=== PATIENT | male | born 1945 | race Caucasian/White ===

== ENCOUNTER 2017-09-25 11:58 | Emergency (ER) | payer OTHER ==
[2017-09-25] MEDS ORDERED: LIDOCAINE 1% MPF 2 ML AMPULE ONE (13:28)
--- NOTE | 2017-09-25 14:24 | ER ---
Nurse's Notes [facility] Name: Richie Paulino Age: 72 yrs Sex: Male : 1945 Arrival Date: 09/25/2017 Time: 12:02 Bed 16 Private MD: Christoph Gardiner E Diagnosis: Laceration without foreign body of right hand Presentation: 09/25 12:16 Presenting complaint: Patient states: right hand slipped off of a window ledge and the sv glass broke and right hand went through the window. Transition of care: patient was not received from another setting of care. Onset of symptoms was September 25, 2017 at 10:00. Risk Assessment: Do you want to hurt yourself or someone else? Patient reports no desire to harm self or others. Initial Sepsis Screen: Does the patient meet any 2 criteria? No. Patient's initial sepsis screen is negative. Does the patient have a suspected source of infection? No. Patient's initial sepsis screen is negative. Care prior to arrival: None. 12:16 Method Of Arrival: Ambulatory sv 12:16 Acuity: RICHARD 3 sv Historical: - Allergies: 12:19 PENICILLINS; sv 12:19 Erythromycin; sv - Home Meds: 12:19 unk blood thinner [Active]; pain med [Active]; leg cramp med [Active]; sv - PMHx: 12:19 [place]; High Cholesterol; Hypertension; sv - PSHx: 12:19 left arm; hemorrhoid; sv - Immunization history:: Adult Immunizations up to date, Last tetanus immunization: < 10 years ago. - Social history:: Smoking status: Patient uses tobacco products, smokes one pack cigarettes per day. - Ebola Screening: : No symptoms or risks identified at this time. Screenin:45 Abuse screen: Denies threats or abuse. Nutritional screening: No deficits noted. rb1 Tuberculosis screening: No symptoms or risk factors identified. Fall Risk None identified. Assessment: 12:45 General: Appears in no apparent distress. comfortable, unkempt, Behavior is calm, rb1 cooperative. Pain: Complains of pain in right hand Pain currently is 8 out of 10 on a pain scale. Neuro: Level of Consciousness is awake, alert, obeys commands, Oriented to person, place, time, situation. Cardiovascular: Capillary refill < 3 seconds is brisk in bilateral fingers. Respiratory: Airway is patent Respiratory effort is even, unlabored, Respiratory pattern is regular, symmetrical. GI: No signs and/or symptoms were reported involving the gastrointestinal system. : No signs and/or symptoms were reported regarding the genitourinary system. Derm: Skin is pink, warm \T\ dry. Musculoskeletal: Range of motion: intact in all extremities. 13:30 Reassessment: Patient appears in no apparent distress at this time. No changes from rb1 previously documented assessment. 14:18 Reassessment: Sintia Davis NP at bedside placing sutures. Pt is tolerating ss procedure well. 14:30 Reassessment: Patient and/or family updated on plan of care and expected duration. Pain rb1 level reassessed. Patient is alert, oriented x 3, equal unlabored respirations, skin warm/dry/pink. Patient denies pain at this time. Vital Signs: 12:19 BP 163 / 75; Pulse 87; Resp 18; Temp 98.3(TE); Pulse Ox 96% on R/A; Weight 85.28 kg sv (R); Height 5 ft. 6 in. (167.64 cm) (R); Pain 0/10; 13:30 BP 158 / 71; Pulse 84; Resp 19; Pulse Ox 99% on R/A; rb1 14:30 BP 153 / 73; Pulse 78; Resp 19; Pulse Ox 97% on R/A; Pain 0/10; rb1 12:19 Body Mass Index 30.34 (85.28 kg, 167.64 cm) sv ED Course: 12:02 Patient arrived in ED. sb2 12:03 Christoph Gardiner MD is Private Physician. sb2 12:17 Triage completed. sv 12:20 Arm band placed on left wrist. sv 12:45 Patient has correct armband on for positive identification. Bed in low position. Call rb1 light in reach. Side rails up X 1. Pulse ox on. NIBP on. 12:46 Nora Burns, ORA is Primary Nurse. rb1 12:52 Sintia Davis FNP-C is PHCP. snw 12:52 Poncho Velásquez MD is Attending Physician. snw 14:22 Christoph Gardiner MD is Referral Physician. snw 14:40 Assist provider with laceration repair Set up tray. Performed by Sintia Ryan DREDGE WORKER-C rb1 Dressed with 4X4s, Kerlix. Patient did not have IV access during this emergency room visit. Administered Medications: 14:03 Drug: Lidocaine (1 %) 5 mg {Note: Administration by Sintia Davis NP. To affected ss area (R index finger). Approx 2-3 mL .} Route: Infiltration; 14:12 Drug: Hibiclens 4 % 1 application Route: Topical; Site: affected area; ss Outcome: 14:23 Discharge ordered by MD. wyman 14:40 Patient left the ED. rb1 14:40 Discharged to home ambulatory, with family. rb1 14:40 Condition: stable 14:40 Discharge instructions given to patient, Instructed on discharge instructions, follow up and referral plans. medication usage, Demonstrated understanding of instructions, follow-up care, medications, Prescriptions given X 2. Signatures: Chrery Art, RN RN Sintia Davis, DEBC DREDGE WORKER-Michelle Maddox RN RN ss Nora Burns RN RN rb1 Aiyana Mayo sb2 Corrections: (The following items were deleted from the chart) 15:02 15:00 Patient left the ED. rb1 rb1
--- NOTE | 2017-09-25 14:24 | EDPHYS ---
Physician Documentation [facility] Name: Richie Paulino Age: 72 yrs Sex: Male : 1945 Arrival Date: 09/25/2017 Time: 12:02 Bed 16 Private MD: Christoph Gardiner E ED Physician Poncho Velásquez HPI: 09/25 14:29 This 72 yrs old Male presents to ER via Ambulatory with complaints of snw Laceration To Hand - right thumb. 14:29 The patient has a laceration related to: replacing a window. The laceration(s) is(are) snw located on the dorsal aspect of proximal phalanx of right thumb. Onset: The symptoms/episode began/occurred suddenly, just prior to arrival. The patient has not experienced similar symptoms in the past. The patient has not recently seen a physician. glass slipped, broke, and pt's right thumb became lacerated, on blood thinners, brisk bleeding. Tetanus up to date. Historical: - Allergies: 12:19 PENICILLINS; sv 12:19 Erythromycin; sv - Home Meds: 12:19 unk blood thinner [Active]; pain med [Active]; leg cramp med [Active]; sv - PMHx: 12:19 [place]; High Cholesterol; Hypertension; sv - PSHx: 12:19 left arm; hemorrhoid; sv - Immunization history:: Adult Immunizations up to date, Last tetanus immunization: < 10 years ago. - Social history:: Smoking status: Patient uses tobacco products, smokes one pack cigarettes per day. - Ebola Screening: : No symptoms or risks identified at this time. ROS: 14:26 Constitutional: Negative for fever, chills, and weight loss, Eyes: Negative for injury, snw pain, redness, and discharge, ENT: Negative for injury, pain, and discharge, Neck: Negative for injury, pain, and swelling, Cardiovascular: Negative for chest pain, palpitations, and edema, Respiratory: Negative for shortness of breath, cough, wheezing, and pleuritic chest pain, Abdomen/GI: Negative for abdominal pain, nausea, vomiting, diarrhea, and constipation, Back: Negative for injury and pain, : Negative for injury, bleeding, discharge, and swelling, MS/Extremity: Negative for injury and deformity, Neuro: Negative for headache, weakness, numbness, tingling, and seizure, Psych: Negative for depression, anxiety, suicide ideation, homicidal ideation, and hallucinations. 14:26 Skin: Positive for laceration(s), of the dorsal aspect of proximal phalanx of right thumb. Exam: 14:26 Head/Face: Normocephalic, atraumatic. Eyes: Pupils equal round and reactive to light, snw extra-ocular motions intact. Lids and lashes normal. Conjunctiva and sclera are non-icteric and not injected. Cornea within normal limits. Periorbital areas with no swelling, redness, or edema. ENT: Nares patent. No nasal discharge, no septal abnormalities noted. Tympanic membranes are normal and external auditory canals are clear. Oropharynx with no redness, swelling, or masses, exudates, or evidence of obstruction, uvula midline. Mucous membranes moist. Neck: Trachea midline, no thyromegaly or masses palpated, and no cervical lymphadenopathy. Supple, full range of motion without nuchal rigidity, or vertebral point tenderness. No Meningismus. Chest/axilla: Normal chest wall appearance and motion. Nontender with no deformity. No lesions are appreciated. Cardiovascular: Regular rate and rhythm with a normal S1 and S2. No gallops, murmurs, or rubs. Normal PMI, no JVD. No pulse deficits. 14:26 Abdomen/GI: Soft, non-tender, with normal bowel sounds. No distension or tympany. No guarding or rebound. No evidence of tenderness throughout. Back: No spinal tenderness. No costovertebral tenderness. Full range of motion. MS/ Extremity: Pulses equal, no cyanosis. Neurovascular intact. Full, normal range of motion. Neuro: Awake and alert, GCS 15, oriented to person, place, time, and situation. Cranial nerves II-XII grossly intact. Motor strength 5/5 in all extremities. Sensory grossly intact. Cerebellar exam normal. Normal gait. Psych: Awake, alert, with orientation to person, place and time. Behavior, mood, and affect are within normal limits. 14:26 Constitutional: The patient appears alert, awake, unkempt. 14:26 Respiratory: the patient does not display signs of respiratory distress, Respirations: normal, Breath sounds: bronchial sounds. 14:26 Skin: Appearance: normal except for affected area, injury, laceration(s), the wound is approximately 4 cm(s), with a depth of 2 cm(s), of the dorsal aspect of proximal phalanx of right thumb. Vital Signs: 12:19 BP 163 / 75; Pulse 87; Resp 18; Temp 98.3(TE); Pulse Ox 96% on R/A; Weight 85.28 kg sv (R); Height 5 ft. 6 in. (167.64 cm) (R); Pain 0/10; 13:30 BP 158 / 71; Pulse 84; Resp 19; Pulse Ox 99% on R/A; rb1 14:30 BP 153 / 73; Pulse 78; Resp 19; Pulse Ox 97% on R/A; Pain 0/10; rb1 12:19 Body Mass Index 30.34 (85.28 kg, 167.64 cm) sv Laceration: 14:26 Wound Repair of 4cm ( 1.6in ) subcutaneous laceration to right hand. Profuse bleeding snw noted.. Distal neuro/vascular/tendon intact. Anesthesia: Local anesthetic administered with 4 mls of 1% lidocaine. Wound prep: Extensive cleansing with hibiclenz by me, Wound explored. Skin closed with 4 4-0 Prolene using simple sutures and sterile technique. Dressed with pressure dressing, non-adherent dressing. Patient tolerated well. MDM: 12:52 Patient medically screened. snw 14:30 Data reviewed: vital signs, nurses notes. Data interpreted: Pulse oximetry: on room air snw is 96 %. Interpretation: acceptable. Counseling: I had a detailed discussion with the patient and/or guardian regarding: the historical points, exam findings, and any diagnostic results supporting the discharge/admit diagnosis, the presence of at least one elevated blood pressure reading (>120/80) during this emergency department visit, lab results, the need for outpatient follow up, to return to the emergency department if symptoms worsen or persist or if there are any questions or concerns that arise at home. Special discussion: I have referred the patient to see his PCP for further evaluation of high blood pressure. I discussed in detail with the patient the higher chance of wound infection based on his presenting history. Based on the history and exam findings, there is no indication for further emergent testing or inpatient evaluation. I discussed with the patient/guardian the need to see the primary care provider for further evaluation of the symptoms. 09/25 13:18 Order name: Suture Tray Setup; Complete Time: 13:42 snw 09/25 13:18 Order name: Wound dressing; Complete Time: 15:01 snw 09/25 13:18 Order name: Wound Care; Complete Time: 14:10 snw Administered Medications: 14:03 Drug: Lidocaine (1 %) 5 mg {Note: Administration by Sintia Davis NP. To affected ss area (R index finger). Approx 2-3 mL .} Route: Infiltration; 14:12 Drug: Hibiclens 4 % 1 application Route: Topical; Site: affected area; ss Disposition: 09/26 07:24 Co-signature as Attending Physician, Poncho Velásquez MD. Disposition: 09/25/17 14:23 Discharged to Home. Impression: Laceration without foreign body of right hand. - Condition is Stable. - Discharge Instructions: Laceration Care, Adult. - Prescriptions for Doxycycline Hyclate 100 mg Oral Tablet - take 1 tablet by ORAL route every 12 hours; 20 tablet. Diclofenac Sodium 75 mg Oral Tablet Sustained Release - take 1 tablet by ORAL route 2 times per day; 30 tablet. - Medication Reconciliation Form, Thank You Letter, Antibiotic Education, Prescription Opioid Use form. - Follow up: Christoph Gardiner MD; When: 10 - 14 days; Reason: Recheck today's complaints, Staple/Suture removal, Re-evaluation by your physician. Follow up: Emergency Department; When: As needed; Reason: Worsening of condition. Signatures: Cherry Art RN Sintia Curry, STAFFING EXECUTIVE-C STAFFING EXECUTIVE-Csnw Michelle Spivey RN RN Nora Burns RN RN rb1 Poncho Velásquez MD MD Corrections: (The following items were deleted from the chart) 09/25 15:00 14:23 09/25/2017 14:23 Discharged to Home. Impression: Laceration without foreign body rb1 of right hand. Condition is Stable. Forms are Medication Reconciliation Form, Thank You Letter, Antibiotic Education, Prescription Opioid Use. Follow up: Christoph Gardiner; When: 10 - 14 days; Reason: Recheck today's complaints, Staple/Suture removal, Re-evaluation by your physician. Follow up: Emergency Department; When: As needed; Reason: Worsening of condition. snw
[2017-09-25 15:13] VITALS: BP 163/75; TEMP 98.3; O2SAT 96
== END 2017-09-25 15:00 | disposition home or self-care (01) ==
LOC: ER 11:58
PROC: 0JQJ0ZZ Repair Right Hand Subcutaneous Tissue and Fascia, Open Approach (ICD-10-PCS; principal; 2017-09-25)
DX: S61.011A Laceration without foreign body of right thumb without damage to nail, initial encounter (principal); Z88.1 Allergy status to other antibiotic agents; Z88.0 Allergy status to penicillin; I10 Essential (primary) hypertension; E78.00 Pure hypercholesterolemia, unspecified; I25.2 Old myocardial infarction; F17.210 Nicotine dependence, cigarettes, uncomplicated; W25.XXXA Contact with sharp glass, initial encounter; Y93.89 Activity, other specified; Y92.019 Unspecified place in single-family (private) house as the place of occurrence of the external cause
CPT/HCPCS: 12002; 99284; J2001

== ENCOUNTER 2017-12-23 20:41 | Inpatient (IN) | payer OTHER ==
[2017-12-23] MEDS ORDERED: FUROSEMIDE 100 MG/10 ML VIAL IV ONE (20:45)
[2017-12-23] MEDS ORDERED: NITROGLYCERIN/D5W 50 MG/250 ML BTL IV ONE (20:45)
[2017-12-23] MEDS ORDERED: NA CHLORIDE 0.9% 250 ML ONE (20:46)
[2017-12-23] MEDS ORDERED: Mastisol Adhesive Liq ONE (20:52)
[2017-12-23 21:13] LABS: Arterial Blood Carboxyhemoglob 2.7 % (0-1.5); Blood Gas Oxyhemoglobin 94.6 % (94-97); Blood O2 Saturation 98.3 % (92-98.5)
--- NOTE | 2017-12-23 21:18 | RAD REPORT ---
EXAM DESCRIPTION: RAD - Chest Single View - 12/23/2017 9:01 pm CLINICAL HISTORY: DYSPNEA Chest pain. COMPARISON: Chest Pa And Lat (2 Views) dated 09/21/2017 FINDINGS: Portable technique limits examination quality. Moderate bilateral pulmonary opacities are noted likely representing pneumonia or pulmonary edema. Th e heart is normal in size. No displaced fractures. IMPRESSION: Moderate bilateral pulmonary opacities likely representing pulmonary edema or pneumonia.
[2017-12-23 21:34] LABS: Protime INR 1.03
[2017-12-23 21:43] LABS: Absolute Lymphocytes (CBC) 4.5 K/uL (0.7-4.9); Absolute Monocytes 0.8 K/uL (0.1-1.3); Absolute Neutrophil 5.7 K/uL (1.8-8.0); Basophils % 0.6 % (0-1.3); Eosinophils % 3.2 % (0-4.4); Hematocrit 41.6 % (39.6-49.0); Lymphocytes % 39.4 % (15.3-44.8); MCH 29.5 pg (27.0-35.0); MCV 90.8 fL (80-100); MPV 10.3 fL (7.6-11.3); Monocytes % 6.8 % (3.3-12.3); RBC Red Blood Cell Count 4.59 M/uL (4.33-5.43)
[2017-12-23 21:44] LABS: Albumin 3.7 g/dL (3.4-5.0); Bilirubin Direct 0.1 mg/dL (0-0.2); Bilirubin Total 0.2 mg/dL (0.2-1.0); Magnesium 1.6 mg/dL (1.8-2.4); Potassium 3.9 mmol/L (3.5-5.1); Protein, Total 7.7 g/dL (6.4-8.2)
--- NOTE | 2017-12-23 21:49 | EDPHYS ---
Physician Documentation [facility] Name: Richie Paulino Age: 72 yrs Sex: Male : 1945 Arrival Date: 12/23/2017 Time: 20:44 Bed 4 Private MD: Christoph Gardiner E ED Physician Christoph Dominguez HPI: 12/23 20:54 This 72 yrs old Male presents to ER via Unassigned with complaints of jr8 Respiratory Distress. 20:54 The patient has shortness of breath at rest. Onset: The symptoms/episode began/occurred jr8 acutely, today. Duration: The symptoms are continuous. The patient's shortness of breath is aggravated by talking. Associated signs and symptoms: The patient has no apparent associated signs or symptoms. Severity of symptoms: At their worst the symptoms were severe in the emergency department the symptoms are unchanged. The patient has not experienced similar symptoms in the past. It is unknown whether or not the patient has recently seen a physician. 20:54 Brought in by EMS after being called out for respiratory distress. Stated that he was jr8 helping family member when he had sudden onset shortness of breath. Patient anxious, pale, and diaphoretic upon arrival . Historical: - Allergies: 21:22 Erythromycin; fc 21:22 PENICILLINS; fc - Home Meds: 21:26 allopurinol 300 mg Oral tab 1 tab once daily [Active]; alprazolam 1 mg Oral tab 1 tab fc twice a day [Active]; aspirin 81 mg Oral chew 1 tab once daily [Active]; fenofibrate oral 145 mg oral 1 tab once daily [Active]; hydrochlorothiazide 12.5 mg Oral tab 1 tab once daily [Active]; metformin 1,000 mg Oral tab 1 tab 2 times per day [Active]; metoprolol succinate 50 mg oral Tb24 1 tab once daily [Active]; nitroglycerin 0.4 mg SL subl 1 tab as needed [Active]; pantoprazole 40 mg oral TbEC 1 tab once daily [Active]; Plavix 75 mg Oral tab 1 tab once daily [Active]; pravastatin 80 mg oral tab 1 tab once daily [Active]; ropinirole 0.5 mg oral tab 1 tab daily [Active]; temazepam 30 mg Oral cap 1 cap nightly [Active]; tramadol 50 mg oral tab 2 tabs three times a day [Active]; valsartan-hydrochlorothiazide 320-12.5 mg oral tab 1 tab once daily [Active]; - PMHx: 21:22 High Cholesterol; [place]; Hypertension; CAD; Diabetes - NIDDM; COPD; PVD; Anxiety; GERD; fc Gout; insomnia; asbestosis; - PSHx: 21:22 Heart Surgery; fc - Immunization history:: Last tetanus immunization: unknown. - Social history:: Smoking status: Patient uses tobacco products. - Ebola Screening: : Patient negative for fever greater than or equal to 101.5 degrees Fahrenheit, and additional compatible Ebola Virus Disease symptoms Patient denies exposure to infectious person Patient denies travel to an Ebola-affected area in the 21 days before illness onset. ROS: 20:54 Eyes: Negative for injury, pain, redness, and discharge, ENT: Negative for injury, jr8 pain, and discharge, Neck: Negative for injury, pain, and swelling, Cardiovascular: Negative for chest pain, palpitations, and edema, Abdomen/GI: Negative for abdominal pain, nausea, vomiting, diarrhea, and constipation, Back: Negative for injury and pain, MS/Extremity: Negative for injury and deformity, Skin: Negative for injury, rash, and discoloration, Neuro: Negative for headache, weakness, numbness, tingling, and seizure. 20:54 Respiratory: Positive for dyspnea on exertion, orthopnea, shortness of breath, wheezing. Exam: 20:54 Eyes: Pupils equal round and reactive to light, extra-ocular motions intact. Lids and jr8 lashes normal. Conjunctiva and sclera are non-icteric and not injected. Cornea within normal limits. Periorbital areas with no swelling, redness, or edema. ENT: Nares patent. No nasal discharge, no septal abnormalities noted. Tympanic membranes are normal and external auditory canals are clear. Oropharynx with no redness, swelling, or masses, exudates, or evidence of obstruction, uvula midline. Mucous membranes moist. Neck: Trachea midline, no thyromegaly or masses palpated, and no cervical lymphadenopathy. Supple, full range of motion without nuchal rigidity, or vertebral point tenderness. No Meningismus. Abdomen/GI: Soft, non-tender, with normal bowel sounds. No distension or tympany. No guarding or rebound. No evidence of tenderness throughout. Back: No spinal tenderness. No costovertebral tenderness. Full range of motion. Skin: Warm, dry with normal turgor. Normal color with no rashes, no lesions, and no evidence of cellulitis. MS/ Extremity: Pulses equal, no cyanosis. Neurovascular intact. Full, normal range of motion. Neuro: Awake and alert, GCS 15, oriented to person, place, time, and situation. Cranial nerves II-XII grossly intact. Motor strength 5/5 in all extremities. Sensory grossly intact. Cerebellar exam normal. Normal gait. 20:54 Cardiovascular: Rate: tachycardic, Rhythm: regular, Pulses: Pulses are 2+ in right radial artery and left radial artery. Heart sounds: normal, normal S1and S2, murmur, not appreciated, rub, not appreciated, Edema: 2+ edema to level of left midcalf, left ankle, left foot, right midcalf, right ankle and right foot. 20:54 Respiratory: severe repiratory distress is noted, Respirations: labored breathing, asymmetrical chest movement, tachypnea, Breath sounds: rales, that are moderate, are heard diffusely. 20:57 ECG was reviewed by the Attending Physician. jr8 Vital Signs: 20:35 BP 222 / 119; Pulse 123; Resp 38; Temp 98.2(TE); Pulse Ox 85% on R/A; Weight 99.79 kg fc (R); Height 5 ft. 8 in. (172.72 cm) (R); Pain 0/10; 20:54 BP 164 / 87; Pulse 98; Resp 28; Pulse Ox 100% on BiPAP; fc 21:07 BP 129 / 69; Pulse 93; Resp 26; Pulse Ox 100% on 100% BiPAP; fc 21:39 BP 123 / 59; Pulse 87; Resp 28; Pulse Ox 100% on 75% BiPAP; fc 22:16 BP 110 / 56; Pulse 84; Resp 22; Pulse Ox 100% on 75% BiPAP; fc 22:38 BP 142 / 69; Pulse 80; Resp 20; Pulse Ox 100% on 75% BiPAP; fc 23:07 BP 145 / 73; Pulse 79; Resp 24; Pulse Ox 100% on 75% BiPAP; Pain 0/10; fc 23:29 BP 149 / 74; Pulse 80; Resp 22; Temp 98.0; Pulse Ox 96% on 40% BiPAP; Pain 0/10; fc 20:35 Body Mass Index 33.45 (99.79 kg, 172.72 cm) fc MDM: 20:52 Patient medically screened. jr8 21:18 Differential diagnosis: Bronchitis CHF exacerbation, Chronic Obstructive Pulmonary jr8 Disease Myocardial Infarction pneumonia, Pneumothorax pulmonary edema, Pulmonary Embolism Sepsis. Data reviewed: vital signs, nurses notes, lab test result(s), EKG, radiologic studies, plain films, and as a result, I will admit patient. Data interpreted: Pulse oximetry: on 100% oxygen by non-rebreather, is 85 %. Interpretation: hypoxia. Counseling: I had a detailed discussion with the patient and/or guardian regarding: the historical points, exam findings, and any diagnostic results supporting the discharge/admit diagnosis, lab results, radiology results, the need for further work-up and treatment in the hospital. Response to treatment: the patient's symptoms have mildly improved after treatment. Physician consultation: Kiran Alexander MD was called at 21:19, was contacted at 21:19, regarding admission, to the ICU, consult, patient's condition, and will see patient. 21:36 ED course: Discussed with patient and family that it appears he has had and acute CHF jr8 exacerbation. Will need to be admitted to stabilize throughout the night. Will need further cardiac work up and will need to be seen by gasoline attendant . 12/23 20:53 Order name: Basic Metabolic Panel; Complete Time: 21:45 12/23 20:53 Order name: CBC with Diff; Complete Time: 21:51 12/23 20:53 Order name: LFT's; Complete Time: 21:45 12/23 20:53 Order name: Magnesium; Complete Time: 21:45 12/23 20:53 Order name: NT PRO-BNP; Complete Time: 21:45 12/23 20:53 Order name: PT-INR; Complete Time: 21:49 12/23 20:53 Order name: Ptt, Activated; Complete Time: 21:49 12/23 20:53 Order name: Troponin (emerg Dept Use Only); Complete Time: 21:49 12/23 20:53 Order name: XRAY Chest (1 view); Complete Time: 21:20 12/23 20:53 Order name: BIPAP 12/23 20:56 Order name: ABG; Complete Time: 21:15 jr8 12/23 22:01 Order name: Urine Dipstick--Ancillary (enter results) mw2 12/23 22:19 Order name: Urine Dipstick-Ancillary; Complete Time: 17:55 EDMS 12/23 20:53 Order name: EKG; Complete Time: 20:53 jr8 12/23 20:53 Order name: Cardiac monitoring; Complete Time: 21:20 8 12/23 20:53 Order name: EKG - Nurse/Tech; Complete Time: 21:20 12/23 20:53 Order name: IV Saline Lock; Complete Time: 21:20 jr8 12/23 20:53 Order name: Labs collected and sent; Complete Time: 21:20 12/23 20:53 Order name: O2 Per Protocol; Complete Time: 21:20 12/23 20:53 Order name: O2 Sat Monitoring; Complete Time: 21:20 8 12/23 20:53 Order name: Urine Dipstick-Ancillary (obtain specimen); Complete Time: 23:32 jr8 EC:57 Rate is 97 beats/min. Rhythm is regular, Sinus Rhythm. QRS Balm is Normal. NC interval jr8 is normal at 156 msec. QRS interval is normal at 100 msec. QT interval is prolonged at 452 msec. No Q waves. T waves are Normal. No ST changes noted. Clinical impression: Normal ECG. Interpreted by me. Reviewed by me. Administered Medications: 20:48 Drug: Nitro Drip - (Nitroglycerin 50 mg, D5W 250 ml) {Note: started at 20 mcg/min per Reji NICHOLE who was at bedside.} Route: IV; Rate: 5 mcg/min; Site: left upper arm; 23:31 Follow up: Response: No adverse reaction; Marked relief of symptoms; IV Status: fc Infusion continued upon admission 20:48 Drug: Lasix 60 mg Route: IVP; Site: left upper arm; 21:58 Follow up: Response: No adverse reaction; Marked relief of symptoms 22:30 Drug: Magnesium Sulfate 2 grams Route: IVPB; Infused Over: 2 hrs; Site: left jugular; 23:31 Follow up: Response: No adverse reaction; No change in condition; IV Status: Infusion continued upon admission 22:32 Drug: Lovenox 1 mg/kg {Note: site per pt request. Refused abd.} Route: Sub-Q; Site: fc left upper arm; 23:31 Follow up: Response: No adverse reaction; No change in condition fc Disposition: 21:34 Critical Care:. jr8 12/24 12:37 Co-signature as Attending Physician, Christoph Dominguez MD I agree with the assessment and wa plan of care. Disposition: 12/23/17 21:49 Hospitalization ordered by Kiran Alexander for Inpatient Admission. Preliminary diagnosis are Acute combined systolic (congestive) and diastolic (congestive) heart failure, Acute respiratory failure with hypoxia. - Bed requested for Intensive Care Unit. - Status is Inpatient Admission. fc - Condition is Fair. - Problem is new. - Symptoms have improved. UTI on Admission? No Critical care time excluding procedures: 12/23 21:34 Critical care time: Bedside Care: 20 minutes, Consultation: 5 minutes, Family jr8 Intervention: 10 minutes. Total time: 35 minutes Signatures: Dispatcher [employer] EDDeanan Hemphill RN RN Jacki Zepeda RN RN bb Reji Davison, DAYANARA PA jr8 Christoph Dominguez MD MD wa Corrections: (The following items were deleted from the chart) 22:00 21:49 Hospitalization Ordered by Kiran Alexander MD for Inpatient Admission. Preliminary bb diagnosis is Acute combined systolic (congestive) and diastolic (congestive) heart failure; Acute respiratory failure with hypoxia. Bed requested for Intensive Care Unit. Status is Inpatient Admission. Condition is Fair. Problem is new. Symptoms have improved. UTI on Admission? No. jr8 12/24 00:14 12/23 22:00 12/23/2017 21:49 Hospitalization Ordered by Kiran Alexander MD for Inpatient fc Admission. Preliminary diagnosis is Acute combined systolic (congestive) and diastolic (congestive) heart failure; Acute respiratory failure with hypoxia. Bed requested for Intensive Care Unit. Status is Inpatient Admission. Condition is Fair. Problem is new. Symptoms have improved. UTI on Admission? No. bb
--- NOTE | 2017-12-23 21:49 | ER ---
Nurse's Notes [facility] Name: Richie Paulino Age: 72 yrs Sex: Male : 1945 Arrival Date: 12/23/2017 Time: 20:44 Bed 4 Private MD: Christoph Gardiner E Diagnosis: Acute combined systolic (congestive) and diastolic (congestive) heart failure;Acute respiratory failure with hypoxia Presentation: 12/23 20:35 Presenting complaint: EMS states: that they were toned out for resp distress. The pt fc had just assisted his mother who had fallen on the floor and he then quickly became short of breath. His BP was 250/150. Pt told them he took 2 Nitro S/L prior to their arrival. Transition of care: patient was not received from another setting of care. Onset of symptoms was December 23, 2017. Risk Assessment: Do you want to hurt yourself or someone else? Patient reports no desire to harm self or others. Initial Sepsis Screen: Does the patient meet any 2 criteria? RR > 20 per min. HR > 90 bpm. Yes Does the patient have a suspected source of infection? No. Patient's initial sepsis screen is negative. Care prior to arrival: Medication(s) given: Albuterol Neb x 1, Atrovent Neb x 1. 20:35 Method Of Arrival: EMS: [facility] 20:35 Acuity: RICHARD 2 fc Triage Assessment: 20:35 General: Appears distressed, Behavior is cooperative, appropriate for age, anxious. fc Respiratory: the patient has severe shortness of breath. Respiratory: Reports shortness of breath Airway is patent Respiratory effort is labored, Respiratory pattern is tachypnea. Historical: - Allergies: 21:22 Erythromycin; fc 21:22 PENICILLINS; fc - Home Meds: 21:26 allopurinol 300 mg Oral tab 1 tab once daily [Active]; alprazolam 1 mg Oral tab 1 tab fc twice a day [Active]; aspirin 81 mg Oral chew 1 tab once daily [Active]; fenofibrate oral 145 mg oral 1 tab once daily [Active]; hydrochlorothiazide 12.5 mg Oral tab 1 tab once daily [Active]; metformin 1,000 mg Oral tab 1 tab 2 times per day [Active]; metoprolol succinate 50 mg oral Tb24 1 tab once daily [Active]; nitroglycerin 0.4 mg SL subl 1 tab as needed [Active]; pantoprazole 40 mg oral TbEC 1 tab once daily [Active]; Plavix 75 mg Oral tab 1 tab once daily [Active]; pravastatin 80 mg oral tab 1 tab once daily [Active]; ropinirole 0.5 mg oral tab 1 tab daily [Active]; temazepam 30 mg Oral cap 1 cap nightly [Active]; tramadol 50 mg oral tab 2 tabs three times a day [Active]; valsartan-hydrochlorothiazide 320-12.5 mg oral tab 1 tab once daily [Active]; - PMHx: 21:22 High Cholesterol; [place]; Hypertension; CAD; Diabetes - NIDDM; COPD; PVD; Anxiety; GERD; fc Gout; insomnia; asbestosis; - PSHx: 21:22 Heart Surgery; fc - Immunization history:: Last tetanus immunization: unknown. - Social history:: Smoking status: Patient uses tobacco products. - Ebola Screening: : Patient negative for fever greater than or equal to 101.5 degrees Fahrenheit, and additional compatible Ebola Virus Disease symptoms Patient denies exposure to infectious person Patient denies travel to an Ebola-affected area in the 21 days before illness onset. Screenin:35 Abuse screen: Denies threats or abuse. Nutritional screening: No deficits noted. fc Tuberculosis screening: No symptoms or risk factors identified. Fall Risk None identified. Assessment: 20:35 General: Appears distressed, unkempt, Behavior is cooperative, appropriate for age, fc anxious. Pain: Denies pain. Neuro: Level of Consciousness is awake, alert, obeys commands, Oriented to person, place, time, situation. Cardiovascular: Denies chest pain, Heart tones S1 S2 Capillary refill < 3 seconds Rhythm is sinus tachycardia Chest pain is denied. Respiratory: Reports shortness of breath Airway is patent Respiratory effort is labored, gasping, Respiratory pattern is tachypnea Breath sounds are diminished bilaterally. Breath sounds with rhonchi bilaterally. Onset: The symptoms/episode began/occurred suddenly. GI: No deficits noted. : No deficits noted. EENT: No signs and/or symptoms were reported regarding the EENT system. Derm: No signs and/or symptoms reported regarding the dermatologic system. Skin is intact, Skin is diaphoretic, Skin is pink, Skin temperature is warm. Musculoskeletal: Circulation, motion, and sensation intact. Capillary refill < 3 seconds, Range of motion: intact in all extremities. 21:07 Reassessment: Nitro turned down to 10 mcg/min. fc 21:14 Reassessment: Patient and/or family updated on plan of care and expected duration. Pain fc level reassessed. Patient is alert, oriented x 3, equal unlabored respirations, skin warm/dry/pink. Family at bedside. Updated on pts condition. Patient states feeling better. Patient states symptoms have improved. 21:39 Reassessment: Nitro turned down to 5 mcg/min. fc 22:00 Reassessment: Patient and/or family updated on plan of care and expected duration. Pain fc level reassessed. Patient is alert, oriented x 3, equal unlabored respirations, skin warm/dry/pink. Pt's family is going home for the night being that they are aware he is being admitted. 22:37 Reassessment: Patient and/or family updated on plan of care and expected duration. Pain fc level reassessed. Patient is alert, oriented x 3, equal unlabored respirations, skin warm/dry/pink. Pt is awaiting transfer to ICU. Medications given as ordered. States that he is breathing better. 23:28 Reassessment: No changes from previously documented assessment. Patient and/or family fc updated on plan of care and expected duration. Pain level reassessed. Patient is alert, oriented x 3, equal unlabored respirations, skin warm/dry/pink. Reassessment:. General: Appears in no apparent distress. comfortable, Behavior is calm, cooperative, appropriate for age. Pain: Denies pain. Neuro: Level of Consciousness is awake, alert, obeys commands, Oriented to person, place, time, situation. Cardiovascular: Denies chest pain, Heart tones S1 S2 Capillary refill < 3 seconds Pulses are all present. Rhythm is sinus rhythm Chest pain is denied. Respiratory: Airway is patent Respiratory effort is even, unlabored, Respiratory pattern is regular, Breath sounds are clear bilaterally. the patient has mild shortness of breath Denies cough, shortness of breath labored breathing. GI: No deficits noted. : No deficits noted. EENT: No deficits noted. Derm: Skin is pink, warm \T\ dry. Musculoskeletal: Circulation, motion, and sensation intact. Capillary refill < 3 seconds, Range of motion: intact in all extremities. Vital Signs: 20:35 BP 222 / 119; Pulse 123; Resp 38; Temp 98.2(TE); Pulse Ox 85% on R/A; Weight 99.79 kg fc (R); Height 5 ft. 8 in. (172.72 cm) (R); Pain 0/10; 20:54 BP 164 / 87; Pulse 98; Resp 28; Pulse Ox 100% on BiPAP; fc 21:07 BP 129 / 69; Pulse 93; Resp 26; Pulse Ox 100% on 100% BiPAP; fc 21:39 BP 123 / 59; Pulse 87; Resp 28; Pulse Ox 100% on 75% BiPAP; fc 22:16 BP 110 / 56; Pulse 84; Resp 22; Pulse Ox 100% on 75% BiPAP; fc 22:38 BP 142 / 69; Pulse 80; Resp 20; Pulse Ox 100% on 75% BiPAP; fc 23:07 BP 145 / 73; Pulse 79; Resp 24; Pulse Ox 100% on 75% BiPAP; Pain 0/10; fc 23:29 BP 149 / 74; Pulse 80; Resp 22; Temp 98.0; Pulse Ox 96% on 40% BiPAP; Pain 0/10; fc 20:35 Body Mass Index 33.45 (99.79 kg, 172.72 cm) ED Course: 20:35 Arm band placed on Patient placed in an exam room, on a stretcher, on oxygen, on fc campus monitor, on pulse oximetry. 20:35 Patient has correct armband on for positive identification. Placed in gown. Bed in low fc position. Call light in reach. Side rails up X2. library monitor on. Pulse ox on. NIBP on. 20:40 O2 via BIpap I of 20, E of 10 and Rate of 18 with fio2 of 100%. fc 20:44 Patient arrived in ED. ds1 20:44 Inserted saline lock: 20 gauge in left EJ, using aseptic technique. ,using aseptic fc technique. per Reji NICHOLE. 20:45 Inserted saline lock: 20 gauge in left upper arm, using aseptic technique. ,using fc aseptic technique. per Ivis PAYAN. 20:47 EKG done, by ED staff, reviewed by Reji NICHOLE. fc 20:52 Reji Davison PA is PHCP. jr8 20:52 Christoph Dominguez MD is Attending Physician. jr8 20:58 Triage completed. fc 20:59 X-ray completed. Portable x-ray completed in exam room. Patient tolerated procedure bb2 well. 21:00 XRAY Chest (1 view) In Process Unspecified. EDMS 21:04 BIPAP Sent. fc 21:26 Christoph Gardiner MD is Private Physician. ds1 21:48 Kiran Alexander MD is Hospitalizing Provider. jr8 22:16 No provider procedures requiring assistance completed. Patient admitted, IV remains in fc place. Administered Medications: 20:48 Drug: Nitro Drip - (Nitroglycerin 50 mg, D5W 250 ml) {Note: started at 20 mcg/min per Reji NICHOLE who was at bedside.} Route: IV; Rate: 5 mcg/min; Site: left upper arm; 23:31 Follow up: Response: No adverse reaction; Marked relief of symptoms; IV Status: fc Infusion continued upon admission 20:48 Drug: Lasix 60 mg Route: IVP; Site: left upper arm; 21:58 Follow up: Response: No adverse reaction; Marked relief of symptoms fc 22:30 Drug: Magnesium Sulfate 2 grams Route: IVPB; Infused Over: 2 hrs; Site: left jugular; 23:31 Follow up: Response: No adverse reaction; No change in condition; IV Status: Infusion fc continued upon admission 22:32 Drug: Lovenox 1 mg/kg {Note: site per pt request. Refused abd.} Route: Sub-Q; Site: left upper arm; 23:31 Follow up: Response: No adverse reaction; No change in condition fc Intake: 23:06 IV: 75ml (IV Fluid); Total: 75ml. fc Output: 23:06 Urine: 1050ml (Voided); Total: 1050ml. Outcome: 21:49 Decision to Hospitalize by Provider. jr8 23:27 Admitted to ICU accompanied by nurse, accompanied by tech, via stretcher, room icu 1, with oxygen, on monitor, with chart, Report called to Kristen PAYAN 23:27 Condition: good 23:27 Discharge instructions given to patient, family, Instructed on the need for admit. 12/24 00:14 Patient left the ED. Signatures: Dispatcher [employer] EDOR Deanna Adair RN RN Yesi Fernandez ds1 Reji Davison PA PA jr8 Leanne Stauffer bb2 Corrections: (The following items were deleted from the chart) 12/23 21:06 20:48 Nitro Drip - (Nitroglycerin 50 mg, D5W 250 ml) IV at 5 mcg/min in left upper arm fc fc 21:39 21:07 Reassessment: Nitro turned down to 5 mcg/min fc fc
[2017-12-23] MEDS ORDERED: ENOXAPARIN 100 MG/ML SYR SQ ONE (22:04)
[2017-12-23] MEDS ORDERED: Magnesium Sulfate 2gm IVPB 2 G/50 ML BAG IV ONE (22:05)
[2017-12-23 22:19] LABS: Urine Blood TRACE (NEG); Urine Glucose NEGATIVE (NEG); Urine Protein 3+ (NEG)
[2017-12-23] MEDS ORDERED: ACETAMINOPHEN 500 MG TAB PO PRN (23:08)
[2017-12-23] MEDS ORDERED: ONDANSETRON 4 MG/2 ML VIAL IV PRN (23:08)
[2017-12-23] MEDS: TEMAZEPAM 15 MG CAP PO SCH (23:30)
[2017-12-23] MEDS: FUROSEMIDE 40 MG/4 ML VIAL IV SCH (23:45)
[2017-12-23] MEDS ORDERED: NA CHLORIDE 0.9% 1,000 ML IV SCH (23:45)
[2017-12-24 05:54] LABS: Absolute Lymphocytes (CBC) 1.3 K/uL (0.7-4.9); Absolute Monocytes 0.4 K/uL (0.1-1.3); Absolute Neutrophil 3.5 K/uL (1.8-8.0); Basophils % 0.6 % (0-1.3); Eosinophils % 1.4 % (0-4.4); Hematocrit 37.4 % (39.6-49.0); Lymphocytes % 24.8 % (15.3-44.8); MCH 30.3 pg (27.0-35.0); MCV 87.9 fL (80-100); MPV 9.4 fL (7.6-11.3); Monocytes % 8.3 % (3.3-12.3); RBC Red Blood Cell Count 4.26 M/uL (4.33-5.43)
[2017-12-24 06:03] LABS: Albumin 3.5 g/dL (3.4-5.0); Bilirubin Total 0.3 mg/dL (0.2-1.0); Magnesium 1.9 mg/dL (1.8-2.4); Phosphorus 2.8 mg/dL (2.5-4.9); Potassium 3.4 mmol/L (3.5-5.1); Protein, Total 7.2 g/dL (6.4-8.2)
--- NOTE | 2017-12-24 07:46 | P.HP ---
Certification for Inpatient Patient admitted to: Inpatient With expected LOS: >2 Midnights Patient will require the following post-hospital care: None Practitioner: I am a practitioner with admitting privileges, knowledge of patient current condition, hospital course, and medical plan of care. Services: Services provided to patient in accordance with Admission requirements found in Title 42 Section 412.3 of the Code of Federal Regulations Patient History Date of Service: 12/23/17 Reason for admission: Respiratory failure History of Present Illness: Patient is a 72-year-old gentleman came to the hospital with shortness of breath. Patient has been having difficulty breathing for the last couple of days. His symptoms became worse and came into the emergency room. In the emergency room patient had hypertensive emergency. His blood pressure was 2/ 100 and 30s over 120 with a heart rate in the 100 and 20s in his respiratory rate was almost in the 40s. He was hypoxic and satting in the 80s. Patient was placed on BiPAP immediately. Pt was found to have pulmonary edema secondary to malignant hypertension. Patient was started on aggressive diuresing and on a nitro drip. Patient's blood pressure was improved and he was started on some his oral medications. We were able to wean off his nitro drip. Patient was diuresed effectively. Clinically he is doing much better. Will try to get weaned off of BiPAP support in the morning. Allergies erythromycin base [Erythromycin Base] Allergy (Verified 12/23/17 22:48) Rash Penicillins Allergy (Verified 12/23/17 22:48) Anaphylaxis Azithromycin Allergy (Uncoded 12/23/17 22:48) Unknown Home Medications: Allopurinol 300 mg PO DAILY 12/23/17 Alprazolam [Xanax Xr] 1 mg PO BID 12/23/17 Aspirin Chewable [Aspirin Chewable*] 81 mg PO DAILY 12/23/17 Clopidogrel Bisulfate [Plavix] 75 mg PO DAILY 12/23/17 Fenofibrate [Tricor] 145 mg PO DAILY 12/23/17 Metformin HCl 1,000 mg PO BID 12/23/17 Metoprolol Succinate [Toprol Xl] 50 mg PO DAILY 12/23/17 Pantoprazole [Protonix Tab] 40 mg PO DAILY 12/23/17 Pravastatin Sodium 80 mg PO BEDTIME 12/23/17 Ropinirole HCl 0.5 mg PO DAILY 12/23/17 Temazepam [Restoril] 30 mg PO BEDTIME 12/23/17 Tramadol HCl [Ultram] 100 mg PO TID 12/23/17 Valsartan/Hydrochlorothiazide [Valsartan-Hctz 320-12.5 mg Tab] 1 tab PO DAILY hydroCHLOROthiazide [Hydrochlorothiazide] 12.5 mg PO DAILY 12/23/17 - Past Medical/Surgical History Has patient received pneumonia vaccine in the past: Yes Diabetic: Yes -: restless leg -: CAD -: [place] -: PVD -: NIDDM -: high choles -: gout -: copd -: hypertension -: asbestosis -: Coronary artery bypass grafting - Family History Father Family History: Reviewed- Non-Contributory - Social History Smoking Status: Current every day smoker Alcohol use: No CD- Drugs: No Caffeine use: Yes Place of Residence: Home Review of Systems 10-point ROS is otherwise unremarkable Physical Examination - Vital Signs Temperature: 97 F Blood Pressure: 167/88 Pulse: 77 Respirations: 19 Pulse Ox (%): 97 - Physical Exam General: Alert, In no apparent distress, Oriented x3 HEENT: Atraumatic, PERRLA, Mucous membr. moist/pink, EOMI, Sclerae nonicteric Neck: Supple, 2+ carotid pulse no bruit, No LAD, Without JVD or thyroid abnormality Respiratory: Diminished, Crackles/rales Cardiovascular: Regular rate/rhythm, Normal S1 S2, Systolic murmur Gastrointestinal: Normal bowel sounds, Soft and benign, Non-distended, No tenderness Musculoskeletal: No clubbing, No tenderness, Swelling Integumentary: No rashes, Tenderness/swelling Neurological: Normal gait, Normal speech, Normal strength at 5/5 x4 extr, Normal tone, Sensation intact, Cranial nerves 3-12 intact, Normal affect Lymphatics: No axilla or inguinal lymphadenopathy - Studies Laboratory Data (last 24 hrs) 12/23/17 20:48: PT 12.1, INR 1.03, APTT 22.6 L 12/23/17 20:48: WBC 11.4 H, Hgb 13.5 L, Hct 41.6, Plt Count 261 12/23/17 20:48: Sodium 145, Potassium 3.9, BUN 24 H, Creatinine 1.40 H, Glucose 200 H, Magnesium 1.6 L, Total Bilirubin 0.2, AST 16, ALT 15, Alkaline Phosphatase 86 Assessment & Plan - Problems (Diagnosis) (1) Acute exacerbation of CHF (congestive heart failure) Current Visit: Yes Status: Acute (2) Hypertensive emergency Current Visit: Yes Status: Acute (3) Pulmonary edema Current Visit: Yes Status: Acute (4) Tachyarrhythmia Current Visit: Yes Status: Acute (5) Hypoxemia Current Visit: Yes Status: Acute - Plan 1. Echocardiogram 2. Start patient on isordil and hydralazine 3. We will start patient on a Beta esthela 4. Cardiology consultation 5. Aggressive diuresis 6. Strict I's and O's 7. Repeat CXR 8. Daily weights 9. Wean off of noninvasive mechanical ventilation 10. Education regarding diet and treatment of congestive heart failure - Advance Directives Does patient have a Living Will: No Does patient have a Durable POA for Healthcare: No - Code Status/Comfort Care Code Status Assessed: Yes Code Status: Full Code Critical Care: Yes Time Spent Managing PTS Care (In Minutes): 50
[2017-12-24] MEDS: TRAMADOL HCL 50 MG TAB PO SCH ×3 (08:39→20:52)
[2017-12-24] MEDS: PANTOPRAZOLE 40MG TABLET PO SCH (08:39)
[2017-12-24] MEDS: POTASSIUM CL SA 10 MEQ TAB PO SCH ×2 (08:39→20:52)
[2017-12-24] MEDS: HYDRALAZINE HCL 25 MG TABLET PO SCH ×3 (08:39→20:53)
[2017-12-24] MEDS: ALPRAZOLAM 1 MG TABLET PO SCH ×2 (08:39→20:52)
[2017-12-24] MEDS: ISOSORBIDE DINIT 20 MG TAB PO SCH ×2 (08:39→20:53)
[2017-12-24] MEDS: ASPIRIN 81 MG CHEWABLE TABLET PO SCH (08:39)
[2017-12-24] MEDS: ROPINIROLE HCL 1 MG TAB PO SCH (08:39)
[2017-12-24] MEDS: ALLOPURINOL 300 MG TAB PO SCH (08:40)
[2017-12-24] MEDS: CLOPIDOGREL 75 MG TABLET PO SCH (08:40)
[2017-12-24] MEDS: FENOFIBRATE 160 MG TAB PO SCH (08:40)
[2017-12-24] MEDS: ENOXAPARIN 40 MG/0.4 ML SQ SCH ×2 (08:40→08:56)
[2017-12-24] MEDS: METOPROLOL XL 50 MG TAB PO SCH (08:40)
[2017-12-24] MEDS ORDERED: KCL 20 MEQ/100 mL IVPB 20 MEQ/100 ML BAG IV SCH (09:00)
[2017-12-24] MEDS: FUROSEMIDE 40 MG/4 ML VIAL IV SCH (11:12)
[2017-12-24] MEDS ORDERED: TOPIRAMATE 25 MG TAB PO PRN (13:43)
--- NOTE | 2017-12-24 14:29 | RAD REPORT ---
EXAM DESCRIPTION: CT - Thorax Wo Con CLINICAL HISTORY: Chest pain chf vs pneumonia COMPARISON: Thorax W/ Con dated 10/15/2017; Chest Pa And Lat (2 Views) dated 09/21/2017; Chest Single View dated 12/23/2017 FINDINGS: The lungs are mildly emphysematous with linear opacities in both lung bases, suggesting co mpressive atelectasis. Small bilateral pleural effusions are present. Trace pericardial fluid is seen . No pneumothorax. No axillary, mediastinal or hilar adenopathy. Aortic atherosclerosis noted. Thoracic degenerative changes are present. 13 mm right adrenal nodule, unchanged. All CT scans are performed using dose optimization technique as appropriate and may include automated exposure control or mA/KV adjustment according to patient size. IMPRESSION: Mild COPD with linear subsegmental atelectasis in both lung bases. Lung aeration appears improved relative to 12/23/2017 chest radiograph. Small bilateral pleural effusions.
--- NOTE | 2017-12-24 16:52 | P.PN ---
Subjective Date of Service: 12/24/17 Chief Complaint: Respiratory failure Patient seen and examined at bedside with RN. Chart reviewed. Case discussed with cardiology. -overnight patient did well overall. Is currently off the nitro drip and BiPAP. Has been able to breathe properly this morning. Denies having any shortness of breath chest pain nausea vomiting abdominal pain or any other associated symptoms Review of Systems 10-point ROS is otherwise unremarkable General: As per HPI Physical Examination - Vital Signs Temperature: 97 F Blood Pressure: 143/66 Pulse: 73 Respirations: 26 Pulse Ox (%): 95 - Physical Exam General: Alert, Oriented x3, Acute distress HEENT: Atraumatic, PERRLA, EOMI Neck: Supple, JVD not distended Respiratory: Normal air movement, Crackles/rales Cardiovascular: Regular rate/rhythm, Normal S1 S2 Gastrointestinal: Normal bowel sounds, Soft and benign, Non-distended, No tenderness Musculoskeletal: No tenderness Integumentary: No rashes Neurological: Normal speech, Normal tone, Normal affect Lymphatics: No axilla or inguinal lymphadenopathy - Studies Laboratory Data (last 24 hrs) 12/23/17 20:48: PT 12.1, INR 1.03, APTT 22.6 L 12/23/17 20:48: WBC 11.4 H, Hgb 13.5 L, Hct 41.6, Plt Count 261 12/23/17 20:48: Sodium 145, Potassium 3.9, BUN 24 H, Creatinine 1.40 H, Glucose 200 H, Magnesium 1.6 L, Total Bilirubin 0.2, AST 16, ALT 15, Alkaline Phosphatase 86 Medications List Reviewed: Yes Assessment And Plan - Current Problems (Diagnosis) (1) Malignant hypertension Current Visit: Yes Status: Acute Plan: Malignant HTN. Now Resolved -BP WNL -Off Nitro ggt and BIPAP -Continue with Home medication now (2) Pulmonary edema Onset Date: 12/24/17 Current Visit: Yes Status: Acute Plan: Pulmonary Edema 2.2 to HTN -Off BIPAP now. On RA saturating Well -IV lasix decreased to 40BID -Will get get Chest CT Qualifiers: Chronicity: acute Qualified Code(s): J81.0 - Acute pulmonary edema (3) SUNIL (acute kidney injury) Current Visit: Yes Status: Resolved Plan: BUN.CR back to Baseline - Plan Currently awaiting clinical improvement. Will go ahead and transfer patient to the floor will observe him for next 24 hr if patient is doing well will discharge him to home post 24 hr. Discharge Plan: Home Plan to discharge in: 24 Hours - Code Status/Comfort Care Code Status Assessed: Yes Critical Care: No
[2017-12-24] MEDS: FUROSEMIDE 40 MG TABLET PO SCH (17:24)
[2017-12-24] MEDS: IPRATROPIUM BROM 0.5MG/2.5ML NEB SCH (19:32)
[2017-12-24] MEDS: ALBUTEROL 2.5 MG/3 ML NEB SOL NEB SCH (19:32)
[2017-12-24] MEDS: TEMAZEPAM 15 MG CAP PO SCH (20:52)
[2017-12-24] MEDS ORDERED: TOPIRAMATE 25 MG TAB PO SCH (21:00)
[2017-12-25] MEDS: ALBUTEROL 2.5 MG/3 ML NEB SOL NEB SCH ×4 (01:59→19:45)
[2017-12-25] MEDS: IPRATROPIUM BROM 0.5MG/2.5ML NEB SCH ×4 (01:59→19:45)
--- NOTE | 2017-12-25 06:10 | EKG ---
Test Date: 2017-12-23 Test Time: 20:49:48 Service Provider: SATISH MEASUREMENT RESULTS: Intervals: Rate: 97 MI: 156 QRSD: 100 QT: 356 QTc: 452 [place]: P: 59 MI: 156 QRS: 84 T: 75 INTERPRETIVE STATEMENTS: Normal sinus rhythm Cannot rule out Inferior infarct, age undetermined Abnormal ECG Compared to ECG 06/19/1997 07:24:00 T-wave abnormality no longer present Possible ischemia no longer present Myocardial infarct finding still present Electronically Signed On 12-25-17 06:08:06 CDT by Aleksandr Dutton
[2017-12-25 08:34] LABS: Potassium 3.5 mmol/L (3.5-5.1)
[2017-12-25] MEDS: ENOXAPARIN 40 MG/0.4 ML SQ SCH (09:00)
[2017-12-25] MEDS: FUROSEMIDE 40 MG TABLET PO SCH ×2 (11:20→17:45)
[2017-12-25] MEDS: ASPIRIN 81 MG CHEWABLE TABLET PO SCH (11:20)
[2017-12-25] MEDS: CLOPIDOGREL 75 MG TABLET PO SCH (11:20)
[2017-12-25] MEDS: POTASSIUM CL SA 10 MEQ TAB PO SCH ×2 (11:20→21:14)
[2017-12-25] MEDS: ALPRAZOLAM 1 MG TABLET PO SCH ×2 (11:20→21:15)
[2017-12-25] MEDS: TRAMADOL HCL 50 MG TAB PO SCH ×3 (11:20→21:15)
[2017-12-25] MEDS: PANTOPRAZOLE 40MG TABLET PO SCH (11:20)
[2017-12-25] MEDS: METOPROLOL XL 50 MG TAB PO SCH (11:20)
[2017-12-25] MEDS: HYDRALAZINE HCL 25 MG TABLET PO SCH ×3 (11:20→21:15)
[2017-12-25] MEDS: FENOFIBRATE 160 MG TAB PO SCH (11:20)
[2017-12-25] MEDS: ISOSORBIDE DINIT 20 MG TAB PO SCH ×2 (11:20→21:15)
[2017-12-25] MEDS: ALLOPURINOL 300 MG TAB PO SCH (11:20)
[2017-12-25] MEDS: ROPINIROLE HCL 1 MG TAB PO SCH (11:20)
--- NOTE | 2017-12-25 12:55 | P.PN ---
Subjective Date of Service: 12/25/17 Chief Complaint: Respiratory failure Patient seen and examined at bedside with RN. Chart reviewed. Case discussed with cardiology. -overnight patient did well overall. -Is currently off the nitro drip and BiPAP. -Denies having any shortness of breath chest pain nausea vomiting abdominal pain or any other associated symptoms Review of Systems 10-point ROS is otherwise unremarkable Physical Examination - Vital Signs Temperature: 98.4 F Blood Pressure: 145/76 Pulse: 95 Respirations: 20 Pulse Ox (%): 96 - Physical Exam General: Alert, Oriented x3, Mild distress HEENT: Atraumatic, PERRLA, EOMI Neck: Supple, JVD not distended Respiratory: Clear to auscultation bilaterally, Normal air movement Cardiovascular: Regular rate/rhythm, Normal S1 S2 Gastrointestinal: Normal bowel sounds, No tenderness Musculoskeletal: No tenderness Integumentary: No rashes Neurological: Normal speech, Normal tone, Normal affect Lymphatics: No axilla or inguinal lymphadenopathy - Studies Medications List Reviewed: Yes Assessment & Plan - Problems (Diagnosis) (1) Malignant hypertension Current Visit: Yes Status: Resolved Plan: Malignant HTN. Now Resolved -BP WNL -Off Nitro ggt and BIPAP -Continue with Home medication now (2) Pulmonary edema Onset Date: 12/24/17 Current Visit: Yes Status: Acute Plan: Pulmonary Edema 2.2 to HTN -Off BIPAP now. On NC at 2L. Will try to wean off -IV lasix to 40BID -Chest CT negative for acute abnormality Qualifiers: Chronicity: acute Qualified Code(s): J81.0 - Acute pulmonary edema (3) SUNIL (acute kidney injury) Current Visit: Yes Status: Resolved Plan: BUN.CR back to Baseline Discharge Plan: Home Plan to discharge in: 24 Hours - Code Status/Comfort Care Code Status Assessed: Yes Critical Care: No
[2017-12-25] MEDS: TEMAZEPAM 15 MG CAP PO SCH (21:14)
[2017-12-26] MEDS: ALBUTEROL 2.5 MG/3 ML NEB SOL NEB SCH ×2 (01:18→08:14)
[2017-12-26] MEDS: IPRATROPIUM BROM 0.5MG/2.5ML NEB SCH ×2 (01:18→08:14)
[2017-12-26] MEDS: FUROSEMIDE 40 MG TABLET PO SCH ×3 (01:46→17:00)
[2017-12-26] MEDS: PANTOPRAZOLE 40MG TABLET PO SCH (08:57)
[2017-12-26] MEDS: ROPINIROLE HCL 1 MG TAB PO SCH (08:59)
[2017-12-26] MEDS: ENOXAPARIN 40 MG/0.4 ML SQ SCH (09:00)
[2017-12-26] MEDS: POTASSIUM CL SA 10 MEQ TAB PO SCH ×2 (09:00→21:57)
[2017-12-26] MEDS: TRAMADOL HCL 50 MG TAB PO SCH ×3 (09:01→21:57)
[2017-12-26] MEDS: ALLOPURINOL 300 MG TAB PO SCH (09:01)
[2017-12-26] MEDS: METOPROLOL XL 50 MG TAB PO SCH (09:03)
[2017-12-26] MEDS: FENOFIBRATE 160 MG TAB PO SCH (09:04)
[2017-12-26] MEDS: ALPRAZOLAM 1 MG TABLET PO SCH ×2 (09:04→21:59)
[2017-12-26] MEDS: CLOPIDOGREL 75 MG TABLET PO SCH (09:04)
[2017-12-26] MEDS: ISOSORBIDE DINIT 20 MG TAB PO SCH ×2 (09:04→21:59)
[2017-12-26] MEDS: ASPIRIN 81 MG CHEWABLE TABLET PO SCH (09:05)
[2017-12-26] MEDS: HYDRALAZINE HCL 25 MG TABLET PO SCH ×3 (09:05→21:58)
--- NOTE | 2017-12-26 11:02 | CON ---
Date of Consultation: 12/26/2017 Admitted on 12/23/2017. I am seeing the patient on 12/26/2017. Reason For Consultation: Possible congestive heart failure. Additional Admitting Physician: Dr. Nolan. History Of Present Illness: Mr. Paulino is a 72-year-old, has been in the hospital since 12/23/2017, came in with shortness of breath. Oxygen saturation is 86% on 4 L. When he came in, his pO2 was 168 with a pCO2 of 62 and pH of 7.22 on BiPAP. Had a troponin of 0.06, BNP of 2706. Has not improved a nd there was a consideration that the symptoms may be more CHF related and COPD. There was an echoca rdiogram pending for next week. He denied any chest pain, nausea, vomiting. Had diaphoresis, shortn ess of breath. No fever or chills. Allergies: HE IS ALLERGIC TO PENICILLIN AND ERYTHROMYCIN. Review of Systems: Negative. Social History: Positive for tobacco. Family History: Positive for heart disease. Medications: At home include aspirin, Plavix, Xanax, TriCor, Coreg, Lasix, Protonix, hydralazine, To prol, and Imdur. Past Medical History: Includes anxiety, gastroesophageal reflux disease, asbestosis, gout, history o f CABG, dyslipidemia, hypertension, diabetes, COPD, and peripheral vascular disease. Physical Examination: Vital Signs: Stable, afebrile, sinus rhythm. HEENT: Negative. Neck: Supple without any bruit, lymphadenopathy, or JVD or thyromegaly. Chest: Revealed wheezing on expiration and bibasilar rales. Cardiac: Revealed tachycardia with S4 gallops. Abdomen: Benign. Extremities: Revealed 1+ edema. Diagnostic Data: As stated earlier. Impression And Plan: 1.Possible acute diastolic congestive heart failure. I agree with his present regimen. We will do an echocardiogram next week to make further decisions in his regard. He should probably have an outp atient Lexiscan eventually. 2.Chronic obstructive pulmonary disease. 3.Dyslipidemia. 4.Anxiety. 5.Hypertension, well controlled. 6.Gastroesophageal reflux disease. 7.Diabetes, well controlled. 8.Asbestosis. 9.Gout. 10.Peripheral vascular disease. 11.Elevated BNP and slightly elevated troponin, not consistent with acute coronary syndrome. I will continue present regimen, use some Lasix IV, check the echo, and make decisions later. CLIF/VICK Voice ID: [id number] Report ID: [id number]
--- NOTE | 2017-12-26 12:07 | P.PN ---
Subjective Date of Service: 12/26/17 Chief Complaint: Respiratory failure Patient seen and examined at bedside with RN. Chart reviewed. Case discussed with cardiology. -overnight patient did well overall. Still continues to be on NC. -Denies having any shortness of breath chest pain nausea vomiting abdominal pain or any other associated symptoms Review of Systems 10-point ROS is otherwise unremarkable Physical Examination - Vital Signs Temperature: 98.0 F Blood Pressure: 114/58 Pulse: 77 Respirations: 18 Pulse Ox (%): 91 - Physical Exam General: Alert, In no apparent distress HEENT: Atraumatic, PERRLA, EOMI Neck: Supple, JVD not distended Respiratory: Normal air movement, Crackles/rales, Expiratory wheezes, Inspiratory wheezes Cardiovascular: Regular rate/rhythm, Normal S1 S2 Gastrointestinal: Normal bowel sounds, No tenderness Musculoskeletal: No tenderness Integumentary: No rashes Neurological: Normal speech, Normal tone, Normal affect Lymphatics: No axilla or inguinal lymphadenopathy - Studies Medications List Reviewed: Yes Assessment And Plan - Current Problems (Diagnosis) (1) Malignant hypertension Current Visit: Yes Status: Resolved Plan: Malignant HTN. Now Resolved -BP WNL -Off Nitro ggt and BIPAP -Continue with Home medication now (2) Pulmonary edema Onset Date: 12/24/17 Current Visit: Yes Status: Acute Plan: Pulmonary Edema 2.2 to HTN vs diastolic dysfuntion. ECHO done. -Off BIPAP now. On NC at 2L. Will try to wean off. Unable to yesterday -IV lasix to 40BID -Chest CT negative for acute abnormality -Cardiology consulted. Appreciate [facility] Qualifiers: Chronicity: acute Qualified Code(s): J81.0 - Acute pulmonary edema (3) SUNIL (acute kidney injury) Current Visit: Yes Status: Resolved Plan: BUN.CR back to Baseline - Plan Assessment: 1. COPD exacerbation 2. Pulmonary Edema 3. SUNIL 4. Malignant HTN 5. CHF - Diastolic Plan: 1. Duonebs, oxygen and steriods 2. IV lasix BID 3. Improved. 3. Resolved 5. IV lasix and ECHO done. Dispo: Currently awaiting clinical improvement. Wean off the Oxygen for now. Discharge Plan: Home Plan to discharge in: 48 Hours - Code Status/Comfort Care Code Status Assessed: Yes Critical Care: No
[2017-12-26] MEDS ORDERED: IPRATROPIUM BROM 0.5MG/2.5ML NEB PRN (12:34)
[2017-12-26] MEDS ORDERED: ALBUTEROL 2.5 MG/3 ML NEB SOL NEB PRN (12:34)
[2017-12-26] MEDS: ARFORMOTEROL TARTRATE 15 MCG/2 ML VIAL.NEB NEB SCH (19:50)
[2017-12-26] MEDS: TEMAZEPAM 15 MG CAP PO SCH (21:57)
[2017-12-27] MEDS: FUROSEMIDE 40 MG TABLET PO SCH ×2 (00:52→08:59)
[2017-12-27 05:18] LABS: Potassium 3.9 mmol/L (3.5-5.1)
[2017-12-27] MEDS: ARFORMOTEROL TARTRATE 15 MCG/2 ML VIAL.NEB NEB SCH ×2 (07:41→19:28)
[2017-12-27] MEDS: POTASSIUM CL SA 10 MEQ TAB PO SCH ×2 (08:57→22:03)
[2017-12-27] MEDS: ROPINIROLE HCL 1 MG TAB PO SCH (08:58)
[2017-12-27] MEDS: ISOSORBIDE DINIT 20 MG TAB PO SCH ×2 (08:58→22:05)
[2017-12-27] MEDS: METOPROLOL XL 50 MG TAB PO SCH (08:58)
[2017-12-27] MEDS: HYDRALAZINE HCL 25 MG TABLET PO SCH ×3 (08:59→22:05)
[2017-12-27] MEDS: FENOFIBRATE 160 MG TAB PO SCH (08:59)
[2017-12-27] MEDS: ALLOPURINOL 300 MG TAB PO SCH (08:59)
[2017-12-27] MEDS: ALPRAZOLAM 1 MG TABLET PO SCH ×2 (08:59→22:05)
[2017-12-27] MEDS: ASPIRIN 81 MG CHEWABLE TABLET PO SCH (08:59)
[2017-12-27] MEDS: CLOPIDOGREL 75 MG TABLET PO SCH (08:59)
[2017-12-27] MEDS: PANTOPRAZOLE 40MG TABLET PO SCH (08:59)
[2017-12-27] MEDS: TRAMADOL HCL 50 MG TAB PO SCH ×3 (09:00→22:04)
[2017-12-27] MEDS: ENOXAPARIN 40 MG/0.4 ML SQ SCH (09:00)
--- NOTE | 2017-12-27 15:06 | P.PN ---
Subjective Date of Service: 12/27/17 Chief Complaint: Respiratory failure Patient seen and examined at bedside with RN. Chart reviewed. Case discussed with cardiology. -overnight patient did well overall. Still continues to be on NC unable to Wean off the oxygen. Arranging for Home oXygen now -Denies having any shortness of breath chest pain nausea vomiting abdominal pain or any other associated symptoms Review of Systems 10-point ROS is otherwise unremarkable Physical Examination - Vital Signs Temperature: 97.2 F Blood Pressure: 113/56 Pulse: 85 Respirations: 20 Pulse Ox (%): 94 - Physical Exam General: Alert, Oriented x3, Cooperative, Mild distress HEENT: Atraumatic, PERRLA, EOMI Neck: Supple, JVD not distended Respiratory: Clear to auscultation bilaterally, Normal air movement Cardiovascular: Regular rate/rhythm, Normal S1 S2 Gastrointestinal: Normal bowel sounds, No tenderness Musculoskeletal: No tenderness Integumentary: No rashes Neurological: Normal speech, Normal tone, Normal affect Lymphatics: No axilla or inguinal lymphadenopathy - Studies Medications List Reviewed: Yes Assessment And Plan - Current Problems (Diagnosis) (1) COPD (chronic obstructive pulmonary disease) Current Visit: Yes Status: Acute Plan: COPD excerbation -duondo nebs, and oxygen at this time. -pulmonology consulted awaiting recommendations at this time. Qualifiers: COPD type: COPD with acute exacerbation Qualified Code(s): J44.1 - Chronic obstructive pulmonary disease with (acute) exacerbation (2) SUNIL (acute kidney injury) Current Visit: Yes Status: Resolved Plan: BUN.CR elevated today -Switch lasix to PO (3) Pulmonary edema Onset Date: 12/24/17 Current Visit: Yes Status: Acute Plan: Pulmonary Edema 2.2 to HTN vs diastolic dysfuntion. ECHO done. -Off BIPAP now. On NC at 2L. Will try to wean off. Unable to since admission -Lasix swtiched to PO daily due to increasing Cr -Chest CT negative for acute abnormality -Cardiology consulted. Appreciate [facility] Qualifiers: Chronicity: acute Qualified Code(s): J81.0 - Acute pulmonary edema (4) Malignant hypertension Current Visit: Yes Status: Resolved Plan: Malignant HTN. Now Resolved -BP WNL -Off Nitro ggt and BIPAP -Continue with Home medication now - Plan Assessment: 1. COPD exacerbation 2. Pulmonary Edema 3. SUNIL 4. Malignant HTN 5. CHF - Diastolic Plan: 1. Duonebs, oxygen and steriods 2. Po lasix for now 3. BUn.CR rising again. Lasix to PO. 4. Resolved 5. PO lasix and ECHO done. Dispo: Currently awaiting clinical improvement. Wean off the Oxygen for now. Discharge Plan: Home Plan to discharge in: 48 Hours - Code Status/Comfort Care Code Status Assessed: Yes Critical Care: No
[2017-12-27] MEDS: TEMAZEPAM 15 MG CAP PO SCH (22:04)
[2017-12-28 07:25] VITALS: BMI 27.8
[2017-12-28] MEDS: ARFORMOTEROL TARTRATE 15 MCG/2 ML VIAL.NEB NEB SCH (07:30)
[2017-12-28] MEDS: ASPIRIN 81 MG CHEWABLE TABLET PO SCH (08:17)
[2017-12-28] MEDS: CLOPIDOGREL 75 MG TABLET PO SCH (08:18)
[2017-12-28] MEDS: ALPRAZOLAM 1 MG TABLET PO SCH (08:18)
[2017-12-28] MEDS: HYDRALAZINE HCL 25 MG TABLET PO SCH ×2 (08:18→14:25)
[2017-12-28] MEDS: PANTOPRAZOLE 40MG TABLET PO SCH (08:18)
[2017-12-28] MEDS: ALLOPURINOL 300 MG TAB PO SCH (08:18)
[2017-12-28] MEDS: ISOSORBIDE DINIT 20 MG TAB PO SCH (08:18)
[2017-12-28] MEDS: FENOFIBRATE 160 MG TAB PO SCH (08:19)
[2017-12-28] MEDS: TRAMADOL HCL 50 MG TAB PO SCH ×2 (08:20→14:25)
[2017-12-28] MEDS: POTASSIUM CL SA 10 MEQ TAB PO SCH (08:20)
[2017-12-28] MEDS: METOPROLOL XL 50 MG TAB PO SCH (08:21)
[2017-12-28] MEDS: ROPINIROLE HCL 1 MG TAB PO SCH (08:21)
[2017-12-28] MEDS: ENOXAPARIN 40 MG/0.4 ML SQ SCH ×2 (08:22→08:29)
--- NOTE | 2017-12-28 08:38 | P.CNS ---
Date of Consult: 12/28/17 Reason for Consult: COPD exacerbation Chief Complaint: Respiratory failure History of Present Illness: Patient is 72 years of age heavy smoker admitted with acute onset of shortness of breath they history of COPD patient is not on any oxygen and bronchodilators at home feeling better since admission denies any cough sputum hemoptysis or chest pain Allergies erythromycin base [Erythromycin Base] Allergy (Verified 12/23/17 22:48) Rash Penicillins Allergy (Verified 12/23/17 22:48) Anaphylaxis Azithromycin Allergy (Uncoded 12/23/17 22:48) Unknown Home Medications: Allopurinol 300 mg PO DAILY 12/23/17 Alprazolam [Xanax Xr] 1 mg PO BID 12/23/17 Aspirin Chewable [Aspirin Chewable*] 81 mg PO DAILY 12/23/17 Clopidogrel Bisulfate [Plavix] 75 mg PO DAILY 12/23/17 Fenofibrate [Tricor] 145 mg PO DAILY 12/23/17 Metformin HCl 1,000 mg PO BID 12/23/17 Metoprolol Succinate [Toprol Xl] 50 mg PO DAILY 12/23/17 Pantoprazole [Protonix Tab] 40 mg PO DAILY 12/23/17 Pravastatin Sodium 80 mg PO BEDTIME 12/23/17 Ropinirole HCl 0.5 mg PO DAILY 12/23/17 Temazepam [Restoril] 30 mg PO BEDTIME 12/23/17 Tramadol HCl [Ultram] 100 mg PO TID 12/23/17 Valsartan/Hydrochlorothiazide [Valsartan-Hctz 320-12.5 mg Tab] 1 tab PO DAILY hydroCHLOROthiazide [Hydrochlorothiazide] 12.5 mg PO DAILY 12/23/17 - Past Medical/Surgical History Diabetic: Yes -: restless leg -: CAD -: [place] -: PVD -: NIDDM -: high choles -: gout -: copd -: hypertension -: asbestosis -: Coronary artery bypass grafting - Family History Father Family History: Reviewed- Non-Contributory - Social History Smoking Status: Current every day smoker Alcohol use: No CD- Drugs: No Caffeine use: Yes Place of Residence: Home Review of Systems 10-point ROS is otherwise unremarkable General: Weakness Respiratory: Shortness of Breath Physical Examination Temp Pulse Resp BP Pulse Ox 98.8 F 91 H 19 118/57 L 93 12/28/17 04:00 09/04/18 08:22 12/28/17 04:00 12/28/17 08:22 12/28/17 04:00 General: Alert, Oriented x3 HEENT: Atraumatic Neck: Supple Respiratory: Clear to auscultation bilaterally, Diminished Cardiovascular: No edema, Normal S1 S2 Gastrointestinal: Normal bowel sounds, Soft and benign - Problems (1) COPD exacerbation Current Visit: Yes Status: Acute Plan: Patient is 72 years of age heavy smoker admitted with COPD exacerbation hypoxic hypercapnic respiratory failure in addition he has bilateral pleural effusions possible underlying congestive heart failure abnormal renal function continue with IV Lasix bronchodilators steroids patient has been console not to smoke patient has a history of coronary artery disease diabetes hypertension
[2017-12-28] MEDS ORDERED: predniSONE 20 MG TAB PO SCH (09:00)
[2017-12-28] MEDS ORDERED: FUROSEMIDE 40 MG TABLET PO SCH (09:00)
--- NOTE | 2017-12-28 09:19 | RAD REPORT ---
EXAM DESCRIPTION: RAD - Chest Single View - 12/28/2017 9:02 am CLINICAL HISTORY: CHF? Chest pain. COMPARISON: Chest Single View dated 12/23/2017; Chest Pa And Lat (2 Views) dated 09/21/2017; Thorax Wo Con dated 12/24/2017 FINDINGS: Portable technique limits examination quality. Mild interstitial prominence bilaterally appears mildly improved since the comparative study. The hea rt is normal in size. No displaced fractures. IMPRESSION: Mild improvement in lung aeration since 12/23/2017.
--- NOTE | 2017-12-28 09:23 | ECHO ---
HEIGHT: 5 ft 8 in WEIGHT: 183 lb 0 oz DATE OF STUDY: 12/24/[address]: Kiran Alexander MD 2-DIMENSIONAL: YES M.MODE: YES DOPPLER: YES COLOR FLOW: YES TDS: PORTABLE: DEFINITY: BUBBLE STUDY: DIAGNOSIS: CONGESTIVE HEART FAILURE CARDIAC HISTORY: CATHERIZATION: NO SURGERY: NO PROSTHETIC VALVE: NO PACEMAKER: NO MEASUREMENTS (cm) DIASTOLIC (NORMALS) SYSTOLIC (NORMALS) IVSd 1.3 (0.6-1.2) LA Diam 4.3 (1.9-4.0) LVEF 74% LVIDd 4.4 (3.5-5.7) LVIDs 2.5 (2.0-3.5) %FS 43% LVPWd 1.2 (0.6-1.2) Ao Diam 2.8 (2.0-3.7) 2 DIMENSIONAL ASSESSMENT: RIGHT ATRIUM: NORMAL LEFT ATRIUM: DILATED RIGHT VENTRICLE: NORMAL LEFT VENTRICLE: NORMAL TRICUSPID VALVE: NORMAL MITRAL VALVE: MITRAL ANNULAR CALCIFICATION PULMONIC VALVE: NORMAL AORTIC VALVE: SCLEROSIS PERICARDIAL EFFUSION: NONE AORTIC ROOT: NORMAL LEFT VENTRICULAR WALL MOTION: NORMAL DOPPLER/COLOR FLOW: MILD TRICUSPID REGURGITATION. COMMENTS: NORMAL LEFT VENTRICULAR SIZE AND FUNCTION. NO WALL MOTION ABNORMALITY. MITRAL ANNULAR CALCIFICATION. AORTIC SCLEROSIS. TECHNOLOGIST: SABINE NAIR
[2017-12-28 10:17] VITALS: O2SAT 91
[2017-12-28 11:28] LABS: Potassium 4.5 mmol/L (3.5-5.1)
--- NOTE | 2017-12-28 13:07 | P.DS ---
Admission Date: 12/23/17 Discharge Date: 12/28/17 Reason for Admission: Respiratory failure Consultations: Cardiology Pulmonology - Problems (1) Acute respiratory failure Current Visit: Yes Status: Acute Qualifiers: Respiratory failure complication: hypoxia and hypercapnia Qualified Code(s) : J96.01 - Acute respiratory failure with hypoxia; J96.02 - Acute respiratory failure with hypercapnia (2) COPD (chronic obstructive pulmonary disease) Current Visit: Yes Status: Chronic Qualifiers: COPD type: COPD with acute exacerbation Qualified Code(s): J44.1 - Chronic obstructive pulmonary disease with (acute) exacerbation (3) Pulmonary edema Onset Date: 12/24/17 Current Visit: Yes Status: Acute Qualifiers: Chronicity: acute Qualified Code(s): J81.0 - Acute pulmonary edema (4) SUNIL (acute kidney injury) Current Visit: Yes Status: Resolved (5) Malignant hypertension Current Visit: Yes Status: Resolved Brief History of Present Illness: Patient is a 72-year-old gentleman came to the hospital with shortness of breath. Patient has been having difficulty breathing for the last couple of days. His symptoms became worse and came into the emergency room. In the emergency room patient had hypertensive emergency. His blood pressure was 2/ 100 and 30s over 120 with a heart rate in the 100 and 20s in his respiratory rate was almost in the 40s. He was hypoxic and satting in the 80s. Patient was placed on BiPAP immediately. Pt was found to have pulmonary edema secondary to malignant hypertension. Patient was started on aggressive diuresing and on a nitro drip. Patient's blood pressure was improved and he was started on some his oral medications. We were able to wean off his nitro drip. Patient was diuresed effectively. Clinically he is doing much better. Will try to get weaned off of BiPAP support in the morning Hospital Course: Overall during the hospital stay patient remained stable Patient initially was admitted to the hospital for shortness of breath and was found to have acute respiratory failure secondary to hypercapnia. Patient's initial ABG was concerning for elevated CO2 and thus patient was admitted to the hospital in the ICU for BiPAP. Patient was kept on BiPAP but was successfully weaned off to nasal cannula. There was a concern that patient also has flash pulmonary edema due to malignant hypertension. Patient was initially started off on nitro drip and was successfully weaned off once his blood pressure had stable here in the hospital. The patient then was transferred to the regular floor. Patient had an echocardiogram done here in the hospital along with cardiology consult. Patient was started on IV Lasix in the ICU for volume overload. Patient had marked improvement in his symptoms and thus Lasix was switched over to p.o.. Cardiology agreed with the above plan and stated that patient could be discharged home from cardiology standpoint. Patient had been tried to be weaned off of oxygen however patient was unable to be weaned off of oxygen. Patient initially did also have acute exacerbation of his COPD however that resolved after patient was placed on duo nebs and brovana and pulmonology was consulted. Patient had oxygen arranged for him as his acute exacerbation had resolved and patient was still requiring oxygen for his chronic COPD. The patient was switched over to p.o. Lasix and was asked to follow up with his primary care doctor, cardiology, and pulmonology once discharged from the hospital. Patient demonstrated understanding and was agreeable to take his Lasix along with neb treatments and thus was discharged home under stable condition Vital Signs/Physical Exam: Temp Pulse Resp BP Pulse Ox 97.3 F 91 H 20 118/57 L 91 12/28/17 08:00 12/28/17 08:22 12/28/17 08:00 12/28/17 08:22 12/28/17 08:00 General: Alert, In no apparent distress HEENT: Atraumatic, PERRLA, EOMI Neck: Supple, JVD not distended Respiratory: Clear to auscultation bilaterally, Normal air movement Cardiovascular: Regular rate/rhythm, Normal S1 S2 Gastrointestinal: Normal bowel sounds, No tenderness Musculoskeletal: No tenderness Integumentary: No rashes Neurological: Normal speech, Normal tone, Normal affect Lymphatics: No axilla or inguinal lymphadenopathy Laboratory Data at Discharge: WBC 5.4 K/uL (4.3-10.9) D 12/24/17 05:29 Hgb 12.9 g/dL (13.6-17.9) L 12/24/17 05:29 Hct 37.4 % (39.6-49.0) L 12/24/17 05:29 Plt Count 168 K/uL (152-406) D 12/24/17 05:29 PT 12.1 SECONDS (9.5-12.5) 12/23/17 20:48 INR 1.03 12/23/17 20:48 APTT 22.6 SECONDS (24.3-36.9) L 12/23/17 20:48 Sodium 138 mmol/L (136-145) 12/28/17 10:59 Potassium 4.5 mmol/L (3.5-5.1) 12/28/17 10:59 BUN 61 mg/dL (7-18) H 12/28/17 10:59 Creatinine 1.80 mg/dL (0.55-1.3) H 12/28/17 10:59 Glucose 120 mg/dL (74-106) H 12/28/17 10:59 Phosphorus 2.8 mg/dL (2.5-4.9) 12/24/17 05:22 Magnesium 1.9 mg/dL (1.8-2.4) 12/24/17 05:22 Total Bilirubin 0.3 mg/dL (0.2-1.0) 12/24/17 05:22 AST 15 U/L (15-37) 12/24/17 05:22 ALT 13 U/L (12-78) 12/24/17 05:22 Alkaline Phosphatase 66 U/L (45-117) 12/24/17 05:22 Home Medications: Allopurinol 300 mg PO DAILY 12/23/17 Alprazolam [Xanax Xr] 1 mg PO BID 12/23/17 Aspirin Chewable [Aspirin Chewable*] 81 mg PO DAILY 12/23/17 Clopidogrel Bisulfate [Plavix] 75 mg PO DAILY 12/23/17 Fenofibrate [Tricor] 145 mg PO DAILY 12/23/17 Metformin HCl 1,000 mg PO BID 12/23/17 Metoprolol Succinate [Toprol Xl] 50 mg PO DAILY 12/23/17 Pantoprazole [Protonix Tab] 40 mg PO DAILY 12/23/17 Pravastatin Sodium 80 mg PO BEDTIME 12/23/17 Ropinirole HCl 0.5 mg PO DAILY 12/23/17 Temazepam [Restoril] 30 mg PO BEDTIME 12/23/17 Tramadol HCl [Ultram] 100 mg PO TID 12/23/17 Valsartan/Hydrochlorothiazide [Valsartan-Hctz 320-12.5 mg Tab] 1 tab PO DAILY hydroCHLOROthiazide [Hydrochlorothiazide] 12.5 mg PO DAILY 12/23/17
[2017-12-28 16:58] VITALS: BP 138/60; TEMP 97.5
== END 2017-12-28 17:27 | disposition home or self-care (01) | DRG 189 ==
LOC: ER 20:41 → ERHOLD 21:53 → 3RD-ICU 23:28 → 2ND 12-24 17:50
PROVIDERS: ADMIT Hospitalist; ATTEND Family Medicine
PROC: 5A09457 Assistance with Respiratory Ventilation, 24-96 Consecutive Hours, Continuous Positive Airway Pressure (ICD-10-PCS; principal; 2017-12-24)
DX: J96.01 Acute respiratory failure with hypoxia (principal); J81.0 Acute pulmonary edema; I16.1 Hypertensive emergency; N17.9 Acute kidney failure, unspecified; J44.1 Chronic obstructive pulmonary disease with (acute) exacerbation; E11.51 Type 2 diabetes mellitus with diabetic peripheral angiopathy without gangrene; E78.00 Pure hypercholesterolemia, unspecified; M10.9 Gout, unspecified; I25.10 Atherosclerotic heart disease of native coronary artery without angina pectoris; K21.9 Gastro-esophageal reflux disease without esophagitis; F17.200 Nicotine dependence, unspecified, uncomplicated; J61 Pneumoconiosis due to asbestos and other mineral fibers; F41.9 Anxiety disorder, unspecified; I10 Essential (primary) hypertension; G25.81 Restless legs syndrome; Z99.81 Dependence on supplemental oxygen; Z79.84 Long term (current) use of oral hypoglycemic drugs; Z79.02 Long term (current) use of antithrombotics/antiplatelets; Z79.82 Long term (current) use of aspirin; Z88.1 Allergy status to other antibiotic agents; Z88.0 Allergy status to penicillin; Z95.1 Presence of aortocoronary bypass graft; I25.2 Old myocardial infarction
CPT/HCPCS: 36415; 71045; 71250; 80048; 80053; 80076; 81003; 82805; 83605; 83735; 83880; 84100; 84484; 85025; 85610; 85730; 93005; 93306; 94660; 96372; 99285; J1650; J2405; J3475; J7512; J7605

== ENCOUNTER 2018-02-04 07:48 | Day surgery (SDC) | payer OTHER ==
[2018-02-04] MEDS ORDERED: NA CHLORIDE 0.9% 1,000 ML ONE (08:18)
[2018-02-04] MEDS: EPINEPHRINE/PF 1 MG/ML AMP ONE ×2 (09:20→10:12)
[2018-02-04] MEDS ORDERED: MIDAZOLAM HCL 2 MG/2 ML INJ ONE (09:22)
[2018-02-04] MEDS ORDERED: FENTANYL CITR 100 MCG/2 ML ONE (09:22)
[2018-02-04] MEDS ORDERED: PROPOFOL 200 MG/20 ML VIAL IV ONE (09:22)
[2018-02-04] MEDS ORDERED: ROCURONIUM 50 MG/5 ML VIAL IV ONE (09:23)
[2018-02-04] MEDS ORDERED: LIDOCAINE 2% MPF 5 ML VIAL ONE (09:23)
[2018-02-04] MEDS ORDERED: NS 0.9% VIAL 10 ML ONE (09:58)
[2018-02-04] MEDS ORDERED: GLYCOPYRROLATE 0.2 MG/ML SYR ONE (10:28)
[2018-02-04] MEDS ORDERED: NEOSTIGMINE 1 MG/ML -5 ML SYRINGE ONE (10:29)
--- NOTE | 2018-02-04 10:47 | P.BOP ---
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
[2018-02-04 12:09] VITALS: BP 145/52; TEMP 97.2; O2SAT 100
--- NOTE | 2018-02-04 21:09 | OP ---
Date of Procedure: 02/04/2018 Surgeon: Cherry Sommer MD Preoperative Diagnosis: Left vocal cord lesion. Tobacco use. 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 Indication For Procedure: Mr. Paulino presented with chronic hoarseness and history of tobacco use. The risks, benefits, and alternatives were discussed with the patient who agreed to proceed. The pat ietrudy was brought to the operating room. He was placed under general anesthesia via oral endotracheal tube. The neck was extended and no tooth guard was required as the patient was edentulous. A [employer] laryngoscope fitted with a 15-degree telescope was used to perform a direct laryngoscopy. On ce the vocal cords were visualized. The laryngoscope was placed in suspension and photodocumentation was obtained of the tumor. The tumor appeared quite exophytic and was friable with possible exacerb ation of mild bleeding from intubation with palpation and suctioning of the area. The tumor involved the majority of the left true vocal fold and with palpation was felt to be invasive into the deeper tissues. There was also tumor within the laryngeal ventricle as well as the left false vocal fold. The lesion did not appear to extend to the anterior commissure or to the arytenoid area, epiglottic f old, or epiglottis. The multiple biopsies were obtained from the left true vocal fold. Additional b iopsy was obtained from the right false vocal fold. An epinephrine-soaked pledget was applied to the biopsy area to aid in hemostasis. During initial placement of the laryngoscope, a small laryngeal c yst was noted. While awaiting the effect of the epinephrine on the biopsy site, decision was made to rupture and marsupialize this cyst. The laryngoscope was repositioned for good visualization of the cyst. A laryngeal grasper was then used to grasp the cyst wall and laryngeal scissors were used to rupture. A white mucoid material was suctioned and the cup forceps was used to remove a significant portion of the cyst wall, which was sent as specimen #3. There was minimal bleeding noted at this si te. The epinephrine-soaked pledgets were removed and the glottis was re-examined using the laryngosc ope with telescope. The area was hemostatic and a small clot above the endotracheal balloon within t he subglottis was suctioned. The blood and secretions were suctioned from the posterior pharyngeal w all as the scope was withdrawn. There was no significant damage to the patient's lips, tongue, or gi ngiva, and the patient was returned to care of Anesthesia for awakening extubation in the operating r oom. He will require referral to Radiation Oncology and possible Medical Oncology pending further st aging workup. ALVIN Voice ID: [id number] Report ID: [id number]
== END 2018-02-04 12:00 | disposition home or self-care (01) ==
LOC: OR 07:48
PROVIDERS: ATTEND Otolaryngology
PROC: 0CBV8ZX Excision of Left Vocal Cord, Via Natural or Artificial Opening Endoscopic, Diagnostic (ICD-10-PCS; 2018-02-04)
PROC: 0CBM8ZX Excision of Pharynx, Via Natural or Artificial Opening Endoscopic, Diagnostic (ICD-10-PCS; principal; 2018-02-04 10:00)
DX: C32.0 Malignant neoplasm of glottis (principal); C32.1 Malignant neoplasm of supraglottis; J38.7 Other diseases of larynx; R49.0 Dysphonia; E11.9 Type 2 diabetes mellitus without complications; I10 Essential (primary) hypertension; I25.10 Atherosclerotic heart disease of native coronary artery without angina pectoris; F17.210 Nicotine dependence, cigarettes, uncomplicated; Z79.02 Long term (current) use of antithrombotics/antiplatelets; Z80.9 Family history of malignant neoplasm, unspecified; Z82.3 Family history of stroke; Z82.49 Family history of ischemic heart disease and other diseases of the circulatory system; Z83.3 Family history of diabetes mellitus
CPT/HCPCS: 31536; 82962 ×2; 88305; J0171; J2710; J3010; J7030; J2250

== ENCOUNTER 2018-05-13 22:09 | Emergency (ER) | payer OTHER ==
--- OUTSIDE RECORDS SUMMARY | 2018-05-13 22:11 | XMS REPORT ---
:1945 [facility] Address [address] [place] [address] Dr. Gardner [address] [place] [id number] Care Team Providers Name Role Phone Unavailable Unavailable Unavailable Problems This patient has no known problems. Allergies, Adverse Reactions, Alerts This patient has no known allergies or adverse reactions. Medications This patient has no known medications.
[2018-05-14] MEDS ORDERED: BISACODYL 10 MG RECTAL SUPP ONE (00:34)
--- NOTE | 2018-05-14 01:11 | ER ---
Nurse's Notes [facility] Name: Richie Paulino Age: 72 yrs Sex: Male : 1945 Arrival Date: 05/13/2018 Time: 22:10 Bed 16 Private MD: Diagnosis: Constipation Presentation: 05/13 22:33 Presenting complaint: Patient states: "I haven't had a bowel movement in 1 month." Pt tl2 reports starting cancer treatment on March 20, 2018 and has not been able to swallow very well so hasn't been eating normally or taking home medications. Pt reports being prescribed a "vitamin drink" and has noticed that he has not had a BM since then. Transition of care: patient was not received from another setting of care. Onset of symptoms was April 14, 2018. Risk Assessment: Do you want to hurt yourself or someone else? Patient reports no desire to harm self or others. Initial Sepsis Screen: Does the patient meet any 2 criteria? No. Patient's initial sepsis screen is negative. Does the patient have a suspected source of infection? No. Patient's initial sepsis screen is negative. Care prior to arrival: None. 22:33 Method Of Arrival: Ambulatory tl2 22:33 Acuity: RICHARD 3 tl2 Triage Assessment: 22:37 General: Appears in no apparent distress. uncomfortable, Behavior is calm, cooperative, tl2 appropriate for age. Pain: Complains of pain in right lower quadrant and left lower quadrant. Historical: - Allergies: 22:37 Erythromycin; tl2 22:37 PENICILLINS; tl2 - Home Meds: 22:37 allopurinol 300 mg Oral tab 1 tab once daily [Active]; alprazolam 1 mg Oral tab 1 tab tl2 twice a day [Active]; aspirin 81 mg Oral chew 1 tab once daily [Active]; fenofibrate 145 mg Oral 1 tab once daily [Active]; - PMHx: 22:37 Anxiety; asbestosis; CAD; COPD; Diabetes - NIDDM; GERD; High Cholesterol; Gout; tl2 Hypertension; insomnia; MS; PVD; - Immunization history:: Adult Immunizations. - Social history:: Smoking status: Patient uses tobacco products, smokes one pack cigarettes per day. - Ebola Screening: : No symptoms or risks identified at this time. Screenin:38 Abuse screen: Denies threats or abuse. Nutritional screening: No deficits noted. tl2 Tuberculosis screening: No symptoms or risk factors identified. Fall Risk None identified. Assessment: 22:40 General: see triage assessment. cc3 23:15 Reassessment: Patient appears in no apparent distress at this time. Patient and/or cc3 family updated on plan of care and expected duration. Pain level reassessed. Patient is alert, oriented x 3, equal unlabored respirations, skin warm/dry/pink. 05/14 00:05 Reassessment: Patient appears in no apparent distress at this time. Patient and/or cc3 family updated on plan of care and expected duration. Pain level reassessed. Patient is alert, oriented x 3, equal unlabored respirations, skin warm/dry/pink. 01:30 Reassessment: Patient appears in no apparent distress at this time. Patient and/or cc3 family updated on plan of care and expected duration. Pain level reassessed. Patient is alert, oriented x 3, equal unlabored respirations, skin warm/dry/pink. Patient went to the bathroom but verbalized that he was not able to pass stool, Dr. Velásquez informed and he discharged the patient with prescription given. No IV cannula in situ. Patient left ER vitally stable ambulatory. Vital Signs: 05/13 22:37 BP 158 / 87; Pulse 100; Resp 18; Temp 98.4(O); Pulse Ox 98% on R/A; Weight 63.5 kg; tl2 Height 5 ft. 9 in. (175.26 cm); Pain 5/10; 23:30 BP 141 / 65; Pulse 78; Resp 18 S; Pulse Ox 98% on R/A; cc3 05/14 00:48 BP 156 / 77; Pulse 81; Resp 19 S; Pulse Ox 98% on R/A; cc3 01:15 BP 151 / 74; Pulse 82; Resp 17 S; Pulse Ox 98% on R/A; cc3 05/13 22:37 Body Mass Index 20.67 (63.50 kg, 175.26 cm) tl2 ED Course: 05/13 22:10 Patient arrived in ED. ag3 22:35 Triage completed. tl2 22:37 Arm band placed on right wrist. tl2 22:38 Patient has correct armband on for positive identification. Bed in low position. Call tl2 light in reach. Side rails up X 1. 22:43 Tova Don is Primary Nurse. cc3 23:11 Poncho Velásquez MD is Attending Physician. 05/14 01:10 Ranulfo Ortiz MD is Referral Physician. 01:30 No provider procedures requiring assistance completed. Patient did not have IV access cc3 during this emergency room visit. Administered Medications: 00:25 Drug: Dulcolax Suppository 10 mg Route: ID; cc3 00:30 Follow up: Response: No adverse reaction cc3 Outcome: 01:11 Discharge ordered by . 01:30 Discharged to home ambulatory. cc3 01:30 Condition: stable 01:30 Discharge instructions given to patient, Instructed on discharge instructions, follow up and referral plans. medication usage, Demonstrated understanding of instructions, follow-up care, medications, Prescriptions given X 2. 01:31 Patient left the ED. cc3 Signatures: Opal Lake, RN RN tl2 Poncho Velásquez MD MD Tova Don cc3 Regina Aguilar ag3 Corrections: (The following items were deleted from the chart) 00:49 00:48 Pulse 81bpm; Resp 19bpm; Spontaneous; Pulse Ox 98% RA; cc3 cc3 05:49 01:30 Reassessment: Patient appears in no apparent distress at this time. Patient cc3 and/or family updated on plan of care and expected duration. Pain level reassessed. Patient is alert, oriented x 3, equal unlabored respirations, skin warm/dry/pink. Patient went to the bathroom but verbalized that he was not able to pass stool, DR. Kelly cc3
--- NOTE | 2018-05-14 01:11 | EDPHYS ---
Physician Documentation [facility] Name: Richie Paulino Age: 72 yrs Sex: Male : 1945 Arrival Date: 05/13/2018 Time: 22:10 Bed 16 Private MD: ED Physician Poncho Velásquez HPI: 05/14 01:08 This 72 yrs old Male presents to ER via Ambulatory with complaints of gs CONSTIPATION. 01:08 Onset: The symptoms/episode began/occurred 2 week(s) ago. Associated signs and gs symptoms: Pertinent negatives: nausea and vomiting, AB PAIN. Severity of pain: At its worst the pain was very mild in the emergency department the pain is unchanged. The patient has experienced similar episodes in the past, a few times. Historical: - Allergies: 05/13 22:37 Erythromycin; tl2 22:37 PENICILLINS; tl2 - Home Meds: 22:37 allopurinol 300 mg Oral tab 1 tab once daily [Active]; alprazolam 1 mg Oral tab 1 tab tl2 twice a day [Active]; aspirin 81 mg Oral chew 1 tab once daily [Active]; fenofibrate 145 mg Oral 1 tab once daily [Active]; - PMHx: 22:37 Anxiety; asbestosis; CAD; COPD; Diabetes - NIDDM; GERD; High Cholesterol; Gout; tl2 Hypertension; insomnia; OH; PVD; - Immunization history:: Adult Immunizations. - Social history:: Smoking status: Patient uses tobacco products, smokes one pack cigarettes per day. - Ebola Screening: : No symptoms or risks identified at this time. ROS: 05/14 01:08 All other systems are negative. gs Exam: 01:08 Cardiovascular: Regular rate and rhythm with a normal S1 and S2. No gallops, murmurs, gs or rubs. Normal PMI, no JVD. No pulse deficits. Respiratory: Lungs have equal breath sounds bilaterally, clear to auscultation and percussion. No rales, rhonchi or wheezes noted. No increased work of breathing, no retractions or nasal flaring. Abdomen/GI: Soft, non-tender, with normal bowel sounds. No distension or tympany. No guarding or rebound. No evidence of tenderness throughout. Back: No spinal tenderness. No costovertebral tenderness. Full range of motion. Skin: Warm, dry with normal turgor. Normal color with no rashes, no lesions, and no evidence of cellulitis. MS/ Extremity: Pulses equal, no cyanosis. Neurovascular intact. Full, normal range of motion. Neuro: Awake and alert, GCS 15, oriented to person, place, time, and situation. Cranial nerves II-XII grossly intact. Motor strength 5/5 in all extremities. Sensory grossly intact. Cerebellar exam normal. Normal gait. 01:08 Constitutional: The patient appears alert, awake. Vital Signs: 05/13 22:37 BP 158 / 87; Pulse 100; Resp 18; Temp 98.4(O); Pulse Ox 98% on R/A; Weight 63.5 kg; tl2 Height 5 ft. 9 in. (175.26 cm); Pain 5/10; 23:30 BP 141 / 65; Pulse 78; Resp 18 S; Pulse Ox 98% on R/A; cc3 05/14 00:48 BP 156 / 77; Pulse 81; Resp 19 S; Pulse Ox 98% on R/A; cc3 01:15 BP 151 / 74; Pulse 82; Resp 17 S; Pulse Ox 98% on R/A; cc3 05/13 22:37 Body Mass Index 20.67 (63.50 kg, 175.26 cm) tl2 MDM: 00:14 Patient medically screened. 01:08 Data reviewed: vital signs, nurses notes. Counseling: I had a detailed discussion with gs the patient and/or guardian regarding: the historical points, exam findings, and any diagnostic results supporting the discharge/admit diagnosis, the need for outpatient follow up, a caretaker resort. Administered Medications: 00:25 Drug: Dulcolax Suppository 10 mg Route: DC; cc3 00:30 Follow up: Response: No adverse reaction cc3 Disposition: 05/14/18 01:11 Discharged to Home. Impression: Constipation. - Condition is Stable. - Discharge Instructions: Constipation, Adult, [id number]. - Prescriptions for Dulcolax 10 mg Rectal Suppository - insert 1 suppository by RECTAL route every 6 hours As needed; 10 suppository. Miralax 17 gram/dose Oral - take 1 packet by ORAL route once daily dilute powder in 8 ounces of water or juice; 1 bottle. - Medication Reconciliation Form, Thank You Letter, Antibiotic Education, Prescription Opioid Use form. - Follow up: Ranulfo Ortiz MD; When: 2 - 3 days; Reason: Re-evaluation by your physician. Signatures: Opal Lake RN RN tl2 Poncho Velásquez MD MD gs Cordel, Charlene cc3 Corrections: (The following items were deleted from the chart) 01:31 01:11 05/14/2018 01:11 Discharged to Home. Impression: Constipation. Condition is cc3 Stable. Forms are Medication Reconciliation Form, Thank You Letter, Antibiotic Education, Prescription Opioid Use. Follow up: Ranulfo Ortiz; When: 2 - 3 days; Reason: Re-evaluation by your physician. gs
[2018-05-14 02:37] VITALS: TEMP 98.4; O2SAT 98
[2018-05-14 02:40] VITALS: BP 156/77
== END 2018-05-14 01:31 | disposition home or self-care (01) ==
LOC: ER 22:09
DX: K59.00 Constipation, unspecified (principal); M10.9 Gout, unspecified; F41.9 Anxiety disorder, unspecified; I25.10 Atherosclerotic heart disease of native coronary artery without angina pectoris; Z88.3 Allergy status to other anti-infective agents; Z88.0 Allergy status to penicillin

== ENCOUNTER 2018-09-04 12:18 | Emergency (ER) | payer OTHER ==
--- OUTSIDE RECORDS SUMMARY | 2018-09-04 12:20 | XMS REPORT ---
:1945 [facility] Address [address] [place] [address] Dr. Gardner [address] [place] [id number] Care Team Providers Name Role Phone Unavailable Unavailable Unavailable Problems This patient has no known problems. Allergies, Adverse Reactions, Alerts This patient has no known allergies or adverse reactions. Medications This patient has no known medications.
[2018-09-04 13:23] LABS: Absolute Monocytes 0.9 K/uL (0.1-1.3); Absolute Neutrophil 8.4 K/uL (1.8-8.0); Basophils % 0.5 % (0-1.3); Eosinophils % 0.7 % (0-4.4); Hematocrit 39.5 % (39.6-49.0); Lymphocytes % 9.2 % (15.3-44.8); MPV 8.3 fL (7.6-11.3); Monocytes % 8.4 % (3.3-12.3); RBC Red Blood Cell Count 4.52 M/uL (4.33-5.43)
[2018-09-04 13:24] LABS: Protime INR 1.03
--- NOTE | 2018-09-04 13:26 | RAD REPORT ---
EXAM DESCRIPTION: RAD - Chest Single View - 09/04/2018 1:19 pm CLINICAL HISTORY: Cough;COPD Chest pain. COMPARISON: Chest Single View dated 12/28/2017; Chest Single View dated 12/23/2017; Chest Pa And Lat (2 Views) dated 09/21/2017 FINDINGS: Portable technique limits examination quality. The lungs are mildly emphysematous but grossly clear. The heart is normal in size. No displaced fract ures. IMPRESSION: Mild COPD.
[2018-09-04] MEDS ORDERED: NA CHLORIDE 0.9% 1,000 ML ONE (13:30)
[2018-09-04 13:55] LABS: ALT/SGPT 13 U/L (12-78); AST/SGOT 6 U/L (15-37); Albumin 3.4 g/dL (3.4-5.0); Alkaline Phosphatase 93 U/L (45-117); BUN Blood Urea Nitrogen 24 mg/dL (7-18); Bicarbonate 31 mmol/L (21-32); Bilirubin Direct < 0.1 mg/dL (0-0.2); Bilirubin Total 0.3 mg/dL (0.2-1.0); Glucose Level 175 mg/dL (74-106); Lipase 71 U/L (73-393); Magnesium 1.7 mg/dL (1.8-2.4); NT PRO-BNP 917 pg/mL (<125); Potassium 3.8 mmol/L (3.5-5.1); Protein, Total 7.4 g/dL (6.4-8.2); Sodium Level 139 mmol/L (136-145); Troponin (Emerg Dept Use Only) < 0.02 ng/mL (0.0-0.045)
[2018-09-04] MEDS ORDERED: METHYLPREDNISOLONE 125 MG INJ ONE (14:10)
[2018-09-04] MEDS ORDERED: IPRATROPIUM BROM 0.5MG/2.5ML ONE (14:10)
[2018-09-04] MEDS ORDERED: ALBUTEROL 2.5 MG/3 ML NEB SOL ONE (14:10)
[2018-09-04] MEDS ORDERED: Levofloxacin500mg IV 500 MG/100 ML BAG IV ONE (14:10)
[2018-09-04] MEDS ORDERED: FAMOTIDINE 20 MG/2 ML VIAL IV ONE (14:10)
--- NOTE | 2018-09-04 15:00 | ER ---
Nurse's Notes [facility] Name: Richie Paulino Age: 72 yrs Sex: Male : 1945 Arrival Date: 09/04/2018 Time: 12:20 Bed 3 Private MD: Diagnosis: Dyspnea;Chronic obstructive pulmonary disease, unspecified;Syncope and collapse-near;Pneumonia due to other specified bacteria-atypical Presentation: 09/04 12:25 Presenting complaint: EMS states: SHORTNESS OF BREATH AT RELIGION WHILE NOT ON 02. bp Transition of care: patient was not received from another setting of care. Onset of symptoms was September 04, 2018 at 12:00. Risk Assessment: Do you want to hurt yourself or someone else? Patient reports no desire to harm self or others. Initial Sepsis Screen: Does the patient meet any 2 criteria? No. Patient's initial sepsis screen is negative. Does the patient have a suspected source of infection? Yes: Productive cough/pneumonia. Care prior to arrival: IV initiated. 20 GA, in the left forearm. 12:25 Method Of Arrival: EMS: [facility] bp 12:25 Acuity: RICHARD 2 bp Triage Assessment: 12:25 General: Appears in no apparent distress. comfortable, Behavior is calm, cooperative, bp appropriate for age. Pain: Denies pain. EENT: No deficits noted. Neuro: Level of Consciousness is awake, alert, obeys commands, Oriented to person, place, time, situation, Appropriate for age. Cardiovascular: Rhythm is sinus rhythm. Respiratory: Reports shortness of breath Onset: The symptoms/episode began/occurred just prior to arrival, the patient has mild shortness of breath. GI: No signs and/or symptoms were reported involving the gastrointestinal system. : No signs and/or symptoms were reported regarding the genitourinary system. Derm: No deficits noted. Musculoskeletal: Circulation, motion, and sensation intact. Range of motion: intact in all extremities. Historical: - Allergies: 12:23 Amoxicillin; bp 12:23 Erythromycin; bp 12:23 PENICILLINS; bp - Home Meds: 12:23 valsartan-hydrochlorothiazide 320-12.5 mg Oral tab 1 tab once daily [Active]; bp pantoprazole 40 mg Oral TbEC 1 tab once daily [Active]; allopurinol 300 mg Oral tab 1 tab once daily [Active]; alprazolam 1 mg Oral tab 1 tab twice a day [Active]; aspirin 81 mg Oral chew 1 tab once daily [Active]; fenofibrate 145 MG Oral 1 tab once daily [Active]; metformin 1,000 mg Oral tab 1 tab 2 times per day [Active]; Plavix 75 mg Oral tab 1 tab once daily [Active]; temazepam 30 mg Oral cap 1 cap nightly [Active]; tramadol 50 mg Oral tab 2 tabs three times a day [Active]; ropinirole 0.5 mg Oral tab 1 tab daily [Active]; pravastatin 80 mg Oral tab 1 tab once daily [Active]; nitroglycerin 0.4 mg SL subl 1 tab as needed [Active]; metoprolol succinate 50 mg Oral Tb24 1 tab once daily [Active]; - PMHx: 12:23 Anxiety; asbestosis; CAD; COPD; Diabetes - NIDDM; GERD; Gout; High Cholesterol; bp Hypertension; insomnia; [place]; PVD; 12:25 throat cancer; hj - Immunization history:: Adult Immunizations up to date. - Social history:: Smoking status: Patient uses tobacco products. - Ebola Screening: : Patient negative for fever greater than or equal to 101.5 degrees Fahrenheit, and additional compatible Ebola Virus Disease symptoms Patient denies exposure to infectious person Patient denies travel to an Ebola-affected area in the 21 days before illness onset No symptoms or risks identified at this time. Screenin:30 Abuse screen: Denies threats or abuse. Denies injuries from another. Nutritional bp screening: No deficits noted. Tuberculosis screening: No symptoms or risk factors identified. Fall Risk None identified. Assessment: 12:25 Cardiovascular: Reports shortness of breath, Denies chest pain, Respiratory: Airway is hj patent Respiratory effort is even, unlabored, Respiratory pattern is regular, symmetrical, 12:30 General: SEE TRIAGE NOTE. bp 13:30 Reassessment: Patient and/or family updated on plan of care and expected duration. Pain hj level reassessed. Patient is alert, oriented x 3, equal unlabored respirations, skin warm/dry/pink. awaiting results and POC:. 14:45 Reassessment: Patient and/or family updated on plan of care and expected duration. Pain hj level reassessed. Patient is alert, oriented x 3, equal unlabored respirations, skin warm/dry/pink. wheeled to CT;. 15:36 Reassessment: Patient and/or family updated on plan of care and expected duration. Pain hj level reassessed. Patient is alert, oriented x 3, equal unlabored respirations, skin warm/dry/pink. awaiting room placement;. 15:47 Reassessment: PER HOSPITALIST, PT TO BE D/C. bp 16:20 Reassessment: PT D/C HOME AMBULATORY WITH FAMILY, DX WITH DYSPNEA AND COPD. bp Vital Signs: 12:25 BP 121 / 62; Pulse 88; Resp 15; Temp 98; Pulse Ox 98% ; Weight 77.11 kg; bp 12:50 BP 116 / 71; Pulse 91; Resp 18; Pulse Ox 98% on R/A; hj 13:50 BP 126 / 70; Pulse 89; Resp 18; Pulse Ox 100% on R/A; hj 14:24 BP 130 / 68; Pulse 76; Resp 18; Pulse Ox 100% on Nebulizer Mask; hj 15:37 BP 144 / 68; Pulse 78; Resp 18; Pulse Ox 100% on R/A; hj 15:47 BP 141 / 65; Pulse 77; Resp 15; Temp 98; Pulse Ox 100% ; bp ED Course: 12:20 Patient arrived in ED. bp 12:25 Arm band placed on. bp 12:26 Juni Zelaya MD is Attending Physician. chidi 12:27 Triage completed. bp 12:30 Patient has correct armband on for positive identification. Bed in low position. Call bp light in reach. Side rails up X2. Adult w/ patient. 12:30 Maintain EMS IV. Dressing intact. Good blood return noted. Site clean \T\ dry. Gauge \T\ bp site: 20 GAUGE LEFT FA. 12:36 Javier Galvan, RN is Primary Nurse. hj 12:58 EKG done, by ED staff, reviewed by Juni Zelaya MD. jb1 13:23 XRAY Chest (1 view) In Process Unspecified. EDMS 13:25 Initial lab(s) drawn, by me, sent to lab. First set of blood cultures drawn by me, hj Second set of blood cultures drawn by me. 13:33 Inserted saline lock: 22 gauge in left forearm, using aseptic technique. Blood hj collected. 14:52 CT completed. Patient tolerated procedure well. Patient moved back from CT. [email or web address] 14:53 CT Soft Tissue Neck W/contr In Process Unspecified. EDMS 14:54 CT Chest For PE Angio In Process Unspecified. EDMS 14:54 Yael Jackson MD is Hospitalizing Provider. chidi 16:10 Maximo Lauren MD is Referral Physician. chidi 16:20 No provider procedures requiring assistance completed. IV discontinued, intact, bp bleeding controlled, No redness/swelling at site. Pressure dressing applied. Administered Medications: 13:10 Drug: NS 0.9% 1000 ml Route: IV; Rate: 125 ml/hr; Site: left forearm; hj 15:23 Follow up: IV Status: Infusion continued; Infusion continued upon admission hj 13:49 Drug: SOLU-Medrol 125 mg Route: IVP; Site: left forearm; hj 14:22 Follow up: Response: No adverse reaction hj 13:49 Drug: Pepcid 20 mg Route: IVP; Site: left forearm; hj 14:22 Follow up: Response: No adverse reaction hj 13:50 Drug: Albuterol - atroVENT (3:1) (2.5 mg - 0.5 mg) 3 ml Route: Nebulizer; hj 14:22 Follow up: Response: No adverse reaction hj 14:07 Drug: levofloxacin 500 mg Volume: 100 ml; Route: IVPB; Infused Over: 60 mins; Site: hj left forearm; 15:22 Follow up: IV Status: Completed infusion; IV Intake: 100ml hj 15:16 Drug: Decadron - Dexamethasone 10 mg Route: IVP; Site: left forearm; hj 15:22 Follow up: Response: No adverse reaction hj 15:16 Drug: Rocephin - (cefTRIAXone) 1 grams Route: IVPB; Infused Over: 30 mins; Site: left hj forearm; 15:22 Follow up: IV Status: Completed infusion; IV Intake: 10ml hj 15:27 Drug: Magnesium Sulfate 1 grams Route: IVPB; Infused Over: 1 hrs; Site: left forearm; hj 15:30 Follow up: IV Status: Infusion continued hj Intake: 15:22 IV: 10ml; Total: 10ml. hj 15:22 IV: 100ml; Total: 110ml. hj Outcome: 14:59 Decision to Hospitalize by Provider. chidi 16:10 Discharge ordered by . chidi 16:21 Patient left the ED. bp Signatures: Dispatcher [employer] EDMS Dada Fernandez [email or web address] Juni Zelaya MD MD cha Joaquin, Henry, RN RN hj Ricardo Philip RN RN Debra Green 3
--- NOTE | 2018-09-04 15:01 | EDPHYS ---
Physician Documentation [facility] Name: Richie Paulino Age: 72 yrs Sex: Male : 1945 Arrival Date: 09/04/2018 Time: 12:20 Bed 3 Private MD: ED Physician Juni Zelaya HPI: 09/04 13:40 This 72 yrs old Male presents to ER via EMS with complaints of Shortness Of chidi Breath. 13:40 The patient has shortness of breath at rest, with light activity. Onset: The chidi symptoms/episode began/occurred 2 day(s) ago. Duration: The symptoms are continuous, and are steadily getting worse. The patient's shortness of breath has no apparent modifying factors. Associated signs and symptoms: Pertinent positives: non-productive cough, dizziness. Severity of symptoms: At their worst the symptoms were moderate in the emergency department the symptoms have improved moderately. The patient has not experienced similar symptoms in the past. Historical: - Allergies: 12:23 Amoxicillin; bp 12:23 Erythromycin; bp 12:23 PENICILLINS; bp - Home Meds: 12:23 valsartan-hydrochlorothiazide 320-12.5 mg Oral tab 1 tab once daily [Active]; bp pantoprazole 40 mg Oral TbEC 1 tab once daily [Active]; allopurinol 300 mg Oral tab 1 tab once daily [Active]; alprazolam 1 mg Oral tab 1 tab twice a day [Active]; aspirin 81 mg Oral chew 1 tab once daily [Active]; fenofibrate 145 MG Oral 1 tab once daily [Active]; metformin 1,000 mg Oral tab 1 tab 2 times per day [Active]; Plavix 75 mg Oral tab 1 tab once daily [Active]; temazepam 30 mg Oral cap 1 cap nightly [Active]; tramadol 50 mg Oral tab 2 tabs three times a day [Active]; ropinirole 0.5 mg Oral tab 1 tab daily [Active]; pravastatin 80 mg Oral tab 1 tab once daily [Active]; nitroglycerin 0.4 mg SL subl 1 tab as needed [Active]; metoprolol succinate 50 mg Oral Tb24 1 tab once daily [Active]; - PMHx: 12:23 Anxiety; asbestosis; CAD; COPD; Diabetes - NIDDM; GERD; Gout; High Cholesterol; bp Hypertension; insomnia; [place]; PVD; 12:25 throat cancer; hj - Immunization history:: Adult Immunizations up to date. - Social history:: Smoking status: Patient uses tobacco products. - Ebola Screening: : Patient negative for fever greater than or equal to 101.5 degrees Fahrenheit, and additional compatible Ebola Virus Disease symptoms Patient denies exposure to infectious person Patient denies travel to an Ebola-affected area in the 21 days before illness onset No symptoms or risks identified at this time. ROS: 13:41 Constitutional: Negative for fever, chills, and weight loss, Eyes: Negative for injury, chidi pain, redness, and discharge, ENT: Negative for injury, pain, and discharge, Neck: Negative for injury, pain, and swelling, Cardiovascular: Negative for chest pain, palpitations, and edema, Abdomen/GI: Negative for abdominal pain, nausea, vomiting, diarrhea, and constipation, Back: Negative for injury and pain, : Negative for injury, bleeding, discharge, and swelling, MS/Extremity: Negative for injury and deformity, Skin: Negative for injury, rash, and discoloration, Neuro: Negative for headache, weakness, numbness, tingling, and seizure, Psych: Negative for depression, anxiety, suicide ideation, homicidal ideation, and hallucinations, Allergy/Immunology: Negative for hives, rash, and allergies, Endocrine: Negative for neck swelling, polydipsia, polyuria, polyphagia, and marked weight changes, Hematologic/Lymphatic: Negative for swollen nodes, abnormal bleeding, and unusual bruising. 13:41 Respiratory: Positive for cough, shortness of breath, at rest. 13:41 MS/extremity: Negative for acute changes. Exam: 13:41 Constitutional: This is a well developed, well nourished patient who is awake, alert, chidi and in no acute distress. Head/Face: Normocephalic, atraumatic. Eyes: Pupils equal round and reactive to light, extra-ocular motions intact. Lids and lashes normal. Conjunctiva and sclera are non-icteric and not injected. Cornea within normal limits. Periorbital areas with no swelling, redness, or edema. Neck: Trachea midline, no thyromegaly or masses palpated, and no cervical lymphadenopathy. Supple, full range of motion without nuchal rigidity, or vertebral point tenderness. No Meningismus. Chest/axilla: Normal chest wall appearance and motion. Nontender with no deformity. No lesions are appreciated. Cardiovascular: Regular rate and rhythm with a normal S1 and S2. No gallops, murmurs, or rubs. Normal PMI, no JVD. No pulse deficits. Abdomen/GI: Soft, non-tender, with normal bowel sounds. No distension or tympany. No guarding or rebound. No evidence of tenderness throughout. Back: No spinal tenderness. No costovertebral tenderness. Full range of motion. Male : Normal genitalia with no discharge or lesions. Skin: Warm, dry with normal turgor. Normal color with no rashes, no lesions, and no evidence of cellulitis. MS/ Extremity: Pulses equal, no cyanosis. Neurovascular intact. Full, normal range of motion. Neuro: Awake and alert, GCS 15, oriented to person, place, time, and situation. Cranial nerves II-XII grossly intact. Motor strength 5/5 in all extremities. Sensory grossly intact. Cerebellar exam normal. Normal gait. Psych: Awake, alert, with orientation to person, place and time. Behavior, mood, and affect are within normal limits. 13:41 ENT: Voice: is hoarse. 13:41 Respiratory: the patient does not display signs of respiratory distress, Respirations: normal, Breath sounds: decreased breath sounds, rhonchi, that are mild. Vital Signs: 12:25 BP 121 / 62; Pulse 88; Resp 15; Temp 98; Pulse Ox 98% ; Weight 77.11 kg; bp 12:50 BP 116 / 71; Pulse 91; Resp 18; Pulse Ox 98% on R/A; hj 13:50 BP 126 / 70; Pulse 89; Resp 18; Pulse Ox 100% on R/A; hj 14:24 BP 130 / 68; Pulse 76; Resp 18; Pulse Ox 100% on Nebulizer Mask; hj 15:37 BP 144 / 68; Pulse 78; Resp 18; Pulse Ox 100% on R/A; hj 15:47 BP 141 / 65; Pulse 77; Resp 15; Temp 98; Pulse Ox 100% ; bp MDM: 12:26 Patient medically screened. [facility] 13:42 Data reviewed: vital signs, nurses notes, lab test result(s), EKG, radiologic studies, [facility] CT scan, plain films. 09/04 12:53 Order name: Basic Metabolic Panel; Complete Time: 15:24 [facility] 09/04 12:53 Order name: CBC with Diff; Complete Time: 13:38 [facility] 09/04 12:53 Order name: LFT's; Complete Time: 15:24 [facility] 09/04 12:53 Order name: Magnesium; Complete Time: 15:24 [facility] 09/04 12:53 Order name: NT PRO-BNP; Complete Time: 15:24 [facility] 09/04 12:53 Order name: PT-INR; Complete Time: 13:38 [facility] 09/04 12:53 Order name: Troponin (emerg Dept Use Only); Complete Time: 15:24 [facility] 09/04 12:53 Order name: XRAY Chest (1 view); Complete Time: 13:38 [facility] 09/04 12:53 Order name: Lipase; Complete Time: 15:24 [facility] 09/04 12:53 Order name: Blood Culture Adult (2) [facility] 09/04 13:39 Order name: CT Chest For PE Angio; Complete Time: 15:24 [facility] 09/04 13:39 Order name: CT Soft Tissue Neck W/contr [facility] 09/04 14:52 Order name: Urine Dipstick--Ancillary (enter results); Complete Time: 15:24 [facility] 09/04 12:53 Order name: EKG; Complete Time: 12:54 [facility] 09/04 12:53 Order name: Cardiac monitoring; Complete Time: 12:58 [facility] 09/04 12:53 Order name: EKG - Nurse/Tech; Complete Time: 12:58 [facility] 09/04 12:53 Order name: IV Saline Lock; Complete Time: 12:59 [facility] 09/04 12:53 Order name: Labs collected and sent; Complete Time: 12:59 [facility] 09/04 12:53 Order name: O2 Per Protocol; Complete Time: 12:58 [facility] 09/04 12:53 Order name: O2 Sat Monitoring; Complete Time: 12:58 [facility] 09/04 12:53 Order name: Urine Dipstick-Ancillary (obtain specimen); Complete Time: 14:50 [facility] Administered Medications: 13:10 Drug: NS 0.9% 1000 ml Route: IV; Rate: 125 ml/hr; Site: left forearm; hj 15:23 Follow up: IV Status: Infusion continued; Infusion continued upon admission hj 13:49 Drug: SOLU-Medrol 125 mg Route: IVP; Site: left forearm; hj 14:22 Follow up: Response: No adverse reaction hj 13:49 Drug: Pepcid 20 mg Route: IVP; Site: left forearm; hj 14:22 Follow up: Response: No adverse reaction hj 13:50 Drug: Albuterol - atroVENT (3:1) (2.5 mg - 0.5 mg) 3 ml Route: Nebulizer; hj 14:22 Follow up: Response: No adverse reaction hj 14:07 Drug: levofloxacin 500 mg Volume: 100 ml; Route: IVPB; Infused Over: 60 mins; Site: left forearm; 15:22 Follow up: IV Status: Completed infusion; IV Intake: 100ml 15:16 Drug: Decadron - Dexamethasone 10 mg Route: IVP; Site: left forearm; hj 15:22 Follow up: Response: No adverse reaction hj 15:16 Drug: Rocephin - (cefTRIAXone) 1 grams Route: IVPB; Infused Over: 30 mins; Site: left forearm; 15:22 Follow up: IV Status: Completed infusion; IV Intake: 10ml 15:27 Drug: Magnesium Sulfate 1 grams Route: IVPB; Infused Over: 1 hrs; Site: left forearm; 15:30 Follow up: IV Status: Infusion continued Disposition: 09/04/18 16:10 Discharged to Home. Impression: Dyspnea, Chronic obstructive pulmonary disease, unspecified, Syncope and collapse - near, Pneumonia due to other specified bacteria - atypical. - Condition is Fair. - Discharge Instructions: Chronic Bronchitis, How to Use an Inhaler, Metered Dose Inhaler with Spacer, Near-Syncope, Weakness, Chronic Obstructive Pulmonary Disease Exacerbation, Near-Syncope, [id number], Community-Acquired Pneumonia, Adult, [id number], Weakness, [id number]. - Prescriptions for Albuterol Sulfate 90 mcg/actuation - inhale 1-2 puff by INHALATION route every 4-6 hours; 1 Inhaler. - Medication Reconciliation Form, Thank You Letter, Antibiotic Education, Prescription Opioid Use form. - Follow up: Private Physician; When: 2 - 3 days; Reason: Recheck today's complaints, Continuance of care, Re-evaluation by your physician. Follow up: Maximo Lauren MD; When: 2 - 3 days; Reason: Recheck today's complaints, Continuance of care, Re-evaluation by your physician. - Problem is new. - Symptoms have improved. Signatures: Dispatcher [employer] EDJuni Quach MD MD cha Joaquin, Henry, RN RN hj Ricardo Philip RN RN bp Corrections: (The following items were deleted from the chart) 15:26 14:59 Hospitalization Ordered by Yael Jackson MD for Observation. Preliminary diagnosis chidi is Dyspnea, unspecified; Syncope and collapse - near; Chronic obstructive pulmonary disease with (acute) exacerbation. Bed requested for Telemetry/MedSurg (observation). Status is Observation. Condition is Fair. Problem is new. Symptoms have improved. UTI on Admission? No. chidi 15:26 15:26 09/04/2018 14:59 Hospitalization Ordered by Yael Jackson MD for Observation. chidi Preliminary diagnosis is Dyspnea, unspecified; Syncope and collapse - near; Chronic obstructive pulmonary disease with (acute) exacerbation; Hypomagnesemia; Type 2 diabetes mellitus. Bed requested for Telemetry/MedSurg (observation). Status is Observation. Condition is Fair. Problem is new. Symptoms have improved. UTI on Admission? No. [facility] 16:07 15:26 09/04/2018 14:59 Hospitalization Ordered by Yael Jackson MD for Inpatient chidi Admission. Preliminary diagnosis is Dyspnea, unspecified; Syncope and collapse - near; Chronic obstructive pulmonary disease with (acute) exacerbation; Hypomagnesemia; Type 2 diabetes mellitus. Bed requested for Telemetry/MedSurg (Inpatient). Status is Inpatient Admission. Condition is Fair. Problem is new. Symptoms have improved. UTI on Admission? No. chidi 16:10 16:10 09/04/2018 16:10 Discharged to Home. Impression: Dyspnea; Chronic obstructive chidi pulmonary disease, unspecified; Syncope and collapse - near; Pneumonia due to other specified bacteria - atypical. Condition is Fair. Forms are Medication Reconciliation Form, Thank You Letter, Antibiotic Education, Prescription Opioid Use. Follow up: Private Physician; When: 2 - 3 days; Reason: Recheck today's complaints, Continuance of care, Re-evaluation by your physician. Problem is new. Symptoms have improved. [facility] 16:21 16:10 09/04/2018 16:10 Discharged to Home. Impression: Dyspnea; Chronic obstructive bp pulmonary disease, unspecified; Syncope and collapse - near; Pneumonia due to other specified bacteria - atypical. Condition is Fair. Forms are Medication Reconciliation Form, Thank You Letter, Antibiotic Education, Prescription Opioid Use. Follow up: Private Physician; When: 2 - 3 days; Reason: Recheck today's complaints, Continuance of care, Re-evaluation by your physician. Follow up: Maximo Lauren; When: 2 - 3 days; Reason: Recheck today's complaints, Continuance of care, Re-evaluation by your physician. Problem is new. Symptoms have improved. chidi
[2018-09-04 15:02] LABS: Urine Blood NEGATIVE (NEG); Urine Glucose NEGATIVE (NEG); Urine Protein NEGATIVE (NEG); Urine Specific Gravity <1.005 (1.005-1.030); Urine pH 5.5 (5.0-7.0)
--- NOTE | 2018-09-04 15:10 | RAD REPORT ---
EXAM DESCRIPTION: CT - Chest For Pe Angio - 09/04/2018 2:54 pm CLINICAL HISTORY: sob COMPARISON: November 2017 TECHNIQUE: Dynamically enhanced axial 3 mm thick images of the chest were obtained during administra tion of <100> mL Isovue 370 IV contrast. Coronal and oblique reconstruction images were generated and reviewed. Exam utilizes a protocol for optimal evaluation of pulmonary arterial tree. Maximum intensity projections 3D imaging was utilized All CT scans are performed using dose optimization technique as appropriate and may include automated exposure control or mA/KV adjustment according to patient size. FINDINGS: A pulmonary embolus is not seen. 2 centimeter aortic arch aneurysm unchanged A pleural effusion is not seen. A pericardial effusion is not seen. Right extrapleural fat unchanged Mild right middle lobe tree-in-bud opacities A small right adrenal mass unchanged IMPRESSION: Negative for a pulmonary embolism. Stable 2 centimeter arch aneurysm Mild right middle lobe tree-in-bud opacities may indicate an atypical infection
--- NOTE | 2018-09-04 15:26 | RAD REPORT ---
EXAM DESCRIPTION: CT - Soft Tissue Neck W/Contr - 09/04/2018 2:53 pm CLINICAL HISTORY: Laryngeal carcinoma COMPARISON: February 2018 TECHNIQUE: Computed axial tomography of the neck was obtained. 50 cc Isovue 300 was administered in travenously. Coronal and sagittal reconstruction was performed. All CT scans are performed using dose optimization technique as appropriate and may include automated exposure control or mA/KV adjustment according to patient size. FINDINGS: Soft tissue prominence is present within the left vocal cord and left piriform sinus. Diffuse edema is present within the epiglottis, aryepiglottic folds, mucosa of the hypo pharynx. Previously described left neck lymph node now measures 7 millimeters. Parotid, submandibular and thyroid glands unremarkable Spondylosis involves the cervical spine resulting in spinal stenosis IMPRESSION: Soft tissue prominence within left vocal cord and left piriform sinus. It is difficult to differentiate residual neoplasm versus post treatment change Diffuse edema within the epiglottis likely post radiation change. An acute epiglottitis is less likel y. This all should be correlated clinically. Exam was discussed with Doctor Zelaya emergency room Diffuse edema within the mucosa of the hypopharynx likely post treatment change
[2018-09-04] MEDS ORDERED: DEXAMETHASONE 10 MG/ML VIAL ONE (15:30)
[2018-09-04] MEDS ORDERED: CEFTRIAXONE/SWI 1gm 1 GM/10 ML SYR ONE (15:31)
[2018-09-04] MEDS ORDERED: MAGNESIUM SULFATE 1 gm IVPB 1 GM/100 ML BAG IV ONE (15:41)
--- NOTE | 2018-09-04 15:57 | P.CNS ---
Date of Consult: 09/04/18 Reason for Consult: SOB, COPD exacerbation Chief Complaint: COPD exacerbation History of Present Illness: This is a 72 yr old male with a pmh of COPD, Throat cancer, s/p radiation, HTN, HLD who presented with SOB this am. Per patient, he was at [employer] this am when he started feeling bad and short of breath. He asked his friend to get his oxygen from his car, used it and stated that he started feeling better. He came to the Emergency room and initial vitals were 121/62, RR 15, HR of 88, afebrile and satting 98% on RA. He was given 1 dose IV levaquin, 125 mg solumedrol, breathing treatments and decadron. His CT scan of the chest was fairly unremarkable except for middle lobe opacities, CXR with mild COPD changes. His CT scan of the neck was with post radiation changes from his hx of throat cancer. His labs were unremarkable. At the time of my exam, he was hemodynamically stable, in no acute distress and satting 98% on RA. Allergies erythromycin base [Erythromycin Base] Allergy (Verified 02/03/18 10:50) Rash Penicillins Allergy (Verified 02/03/18 10:50) Anaphylaxis Azithromycin Allergy (Uncoded 02/03/18 10:50) Unknown Home medications list reviewed: Yes Home Medications: Allopurinol 300 mg PO DAILY 12/23/17 Alprazolam [Xanax Xr] 1 mg PO BID 12/23/17 Aspirin Chewable [Aspirin Chewable*] 81 mg PO DAILY 12/23/17 Clopidogrel Bisulfate [Plavix] 75 mg PO DAILY 12/23/17 Fenofibrate [Tricor] 145 mg PO DAILY 12/23/17 Metformin HCl 1,000 mg PO BID 12/23/17 Metoprolol Succinate [Toprol Xl] 50 mg PO DAILY 12/23/17 Pantoprazole [Protonix Tab] 40 mg PO DAILY 12/23/17 Pravastatin Sodium 80 mg PO BEDTIME 12/23/17 Ropinirole HCl 0.5 mg PO DAILY 12/23/17 Temazepam [Restoril] 30 mg PO BEDTIME 12/23/17 Tramadol HCl [Ultram] 100 mg PO TID 12/23/17 Valsartan/Hydrochlorothiazide [Valsartan-Hctz 320-12.5 mg Tab] 1 tab PO DAILY hydroCHLOROthiazide [Hydrochlorothiazide] 12.5 mg PO DAILY 12/23/17 - Past Medical/Surgical History Diabetic: Yes -: restless leg -: CAD -: [place] -: PVD -: NIDDM -: high choles -: gout -: copd -: hypertension -: asbestosis -: Coronary artery bypass grafting - Social History Smoking Status: Current every day smoker Alcohol use: No CD- Drugs: No Caffeine use: Yes Review of Systems 10-point ROS is otherwise unremarkable Physical Examination General: Alert, In no apparent distress, Oriented x3 HEENT: Atraumatic, PERRLA, Mucous membr. moist/pink, EOMI, Sclerae nonicteric Neck: Supple, 2+ carotid pulse no bruit, No LAD, Without JVD or thyroid abnormality Respiratory: Normal air movement, Expiratory wheezes Cardiovascular: Regular rate/rhythm, Normal S1 S2 Gastrointestinal: Normal bowel sounds, No tenderness Musculoskeletal: No tenderness Integumentary: No rashes Neurological: Normal gait, Normal speech, Normal tone, Normal affect Lymphatics: No axilla or inguinal lymphadenopathy Laboratory Data (last 24 hrs) 09/04/18 13:10: PT 12.1, INR 1.03 09/04/18 13:10: WBC 10.4, Hgb 13.6, Hct 39.5 L, Plt Count 225 09/04/18 13:10: Sodium 139, Potassium 3.8, BUN 24 H, Creatinine 0.94, Glucose 175 H, Magnesium 1.7 L, Total Bilirubin 0.3, AST 6 L, ALT 13, Alkaline Phosphatase 93, Lipase 71 L Conclusions/Impression: Patient presented with what seems to be a COPD exacerbation. Clinically, his symptoms have completely improved and his respiratory status is back to baseline. His labs are stable. He is hemodynamically stable. He is satting 98% on RA, he is ambulating without de-satting. Physical exam is unremarkable. He was counseled on smoking cessation, though is not interested at this time. He would like to go home. At this time, he is medically stable to be discharged home with PO steroids, PO levaquin 500 mg x 5 days. He is instructed to continue to use his inhalers and oxygen as needed. He is to follow up with his PCP in 1-2 days for followup. All of his questions were answered and he verbalized understanding.
[2018-09-04 16:59] VITALS: TEMP 98
[2018-09-04 17:01] VITALS: O2SAT 100
[2018-09-04 17:05] VITALS: BP 141/65
--- NOTE | 2018-09-05 09:20 | EKG ---
Test Date: 2018-09-04 Test Time: 12:56:09 Coffee Host: AJ MEASUREMENT RESULTS: Intervals: Rate: 83 MO: 136 QRSD: 104 QT: 382 QTc: 448 [place]: P: 78 MO: 136 QRS: 89 T: 65 INTERPRETIVE STATEMENTS: Normal sinus rhythm Cannot rule out Inferior infarct, age undetermined Abnormal ECG Compared to ECG 12/23/2017 20:49:48 No significant changes Electronically Signed On 09-05-18 09:19:23 CDT by Gabriel Sawyer
== END 2018-09-04 16:21 | disposition home or self-care (01) ==
LOC: ER 12:18
DX: J44.1 Chronic obstructive pulmonary disease with (acute) exacerbation (principal); J15.8 Pneumonia due to other specified bacteria; R55 Syncope and collapse; E11.9 Type 2 diabetes mellitus without complications; E78.00 Pure hypercholesterolemia, unspecified; I10 Essential (primary) hypertension; F41.9 Anxiety disorder, unspecified; I25.10 Atherosclerotic heart disease of native coronary artery without angina pectoris; Z72.0 Tobacco use; Z79.01 Long term (current) use of anticoagulants; Z79.82 Long term (current) use of aspirin; Z88.0 Allergy status to penicillin; Z88.1 Allergy status to other antibiotic agents; Z88.3 Allergy status to other anti-infective agents; Z85.12 Personal history of malignant neoplasm of trachea
CPT/HCPCS: 96365; 96361; 93005; 87040 ×2; 85025; 80048; 36415; 83735; 85610; 80076; 81003; 84484; 83690; 83880; 70491; 71275; 71045; 94640; 96375; 99285; Q9967 ×2; J3475; J1100; J0696; J7030; J2930

== ENCOUNTER 2018-12-13 21:32 | Observation (INO) | payer OTHER ==
--- OUTSIDE RECORDS SUMMARY | 2018-12-13 21:34 | XMS REPORT ---
:1945 Author Organization [facility] Address [address] [place] [address] Dr. Gardner [address] [place] [id number] Care Team Providers Name Role Phone Unavailable Unavailable Unavailable Problems This patient has no known problems. Allergies, Adverse Reactions, Alerts This patient has no known allergies or adverse reactions. Medications This patient has no known medications.
[2018-12-13] MEDS ORDERED: dexAMETHasone 10 MG/ML VIAL ONE (22:47)
[2018-12-13] MEDS ORDERED: NA CHLORIDE 0.9% 1,000 ML ONE (22:48)
[2018-12-13] MEDS ORDERED: LEVALBUTEROL 1.25 MG/3 ML NEB ONE (22:48)
[2018-12-13] MEDS ORDERED: FAMOTIDINE 20 MG/2 ML VIAL IV ONE (22:48)
[2018-12-13] MEDS ORDERED: Levofloxacin500mg IV 500 MG/100 ML BAG IV ONE (22:48)
[2018-12-13] MEDS ORDERED: IPRATROPIUM BROM 0.5MG/2.5ML ONE (23:02)
[2018-12-13 23:19] LABS: Absolute Lymphocytes (CBC) 0.8 K/uL (0.7-4.9); Basophils % 0.6 % (0-1.3); Hematocrit 28.3 % (39.6-49.0); Lymphocytes % 15.8 % (15.3-44.8); MPV 7.7 fL (7.6-11.3); RBC Red Blood Cell Count 3.43 M/uL (4.33-5.43)
[2018-12-13 23:23] LABS: Protime INR 1.12
[2018-12-13 23:40] LABS: ALT/SGPT 16 U/L (12-78); AST/SGOT 14 U/L (15-37); Albumin 2.4 g/dL (3.4-5.0); Alkaline Phosphatase 91 U/L (45-117); BUN Blood Urea Nitrogen 25 mg/dL (7-18); Bicarbonate 32 mmol/L (21-32); Bilirubin Direct < 0.1 mg/dL (0-0.2); Bilirubin Total 0.1 mg/dL (0.2-1.0); Glucose Level 108 mg/dL (74-106); Magnesium 1.9 mg/dL (1.8-2.4); NT PRO-BNP 2190 pg/mL (<125); Potassium 3.8 mmol/L (3.5-5.1); Protein, Total 6.6 g/dL (6.4-8.2); Sodium Level 143 mmol/L (136-145); Troponin (Emerg Dept Use Only) < 0.02 ng/mL (0.0-0.045)
--- NOTE | 2018-12-14 02:11 | ER ---
Nurse's Notes [facility] Name: Richie Paulino Age: 73 yrs Sex: Male : 1945 Arrival Date: 12/13/2018 Time: 21:33 Bed 3 Private MD: Diagnosis: Dyspnea;Chronic obstructive pulmonary disease with (acute) exacerbation;Stridor;Hypoxemia Presentation: 12/13 21:25 Presenting complaint: Patient states: that he is having shortness of breath related to fc his COPD. Pt also having throat pain due to hx of throat cancer along with diff swallowing. Pt is currently not taking any medications due to this. Has cough with yellow/green sputum. EMS states that sats were 88% on roomair. Transition of care: patient was not received from another setting of care. Onset of symptoms was December 13, 2018. Risk Assessment: Do you want to hurt yourself or someone else? Patient reports no desire to harm self or others. Initial Sepsis Screen: Does the patient meet any 2 criteria? HR > 90 bpm. Yes Does the patient have a suspected source of infection? No. Patient's initial sepsis screen is negative. Care prior to arrival: Oxygen administered. via nasal cannula. 21:25 Method Of Arrival: EMS: [facility] 21:25 Acuity: RICHARD 3 fc Historical: - Allergies: 21:39 Amoxicillin; fc 21:39 PENICILLINS; fc 21:39 Erythromycin; fc - Home Meds: 21:39 Pt states that he is unable to take any medications PO [Active]; fc - PMHx: 21:39 Anxiety; COPD; Diabetes - NIDDM; GERD; Gout; High Cholesterol; Hypertension; insomnia; fc CAD; [place]; PVD; asbestosis; throat cancer; - Immunization history:: Last tetanus immunization: up to date. - Social history:: Smoking status: Patient uses tobacco products, 2 cigs a day, Patient/guardian denies using alcohol, street drugs. - Ebola Screening: : Patient negative for fever greater than or equal to 101.5 degrees Fahrenheit, and additional compatible Ebola Virus Disease symptoms Patient denies exposure to infectious person Patient denies travel to an Ebola-affected area in the 21 days before illness onset. - Family history:: not pertinent. Screenin:25 Abuse screen: Denies threats or abuse. Nutritional screening: No deficits noted. fc Tuberculosis screening: No symptoms or risk factors identified. Fall Risk Fall in past 12 months (25 points). Secondary diagnosis (15 points) impaired mobility, No IV (0 pts). Ambulatory Aid- Crutches/Cane/Walker (15 pts). Gait- Impaired (20 pts.). Mental Status- Overestimates/Forgets Limitations (15 pts.). Total Ng Fall Scale indicates High Risk Score (45 or more points). Fall prevention measures have been instituted. Side Rails Up X 2 Placed Close to Nursing Station Frequent Obs/Assessments Occuring As available patient and family educated on Fall Prevention Program and Strategies. Assessment: 21:30 General: Appears in no apparent distress. unkempt, Behavior is appropriate for age. lp1 Pain: Complains of pain in throat. Neuro: Level of Consciousness is awake, alert, obeys commands, Oriented to person, place, situation, Reports dizziness. Cardiovascular: Patient's skin is warm and dry. Rhythm is sinus rhythm. Respiratory: Reports shortness of breath cough that is productive, Airway is patent Trachea midline Respiratory effort is even, Respiratory pattern is regular, Breath sounds are diminished bilaterally. Onset: The symptoms/episode began/occurred gradually, the patient has mild shortness of breath. GI: No signs and/or symptoms were reported involving the gastrointestinal system. : No signs and/or symptoms were reported regarding the genitourinary system. EENT: Reports pain when swallowing. Derm: Skin is intact, Skin is dry, Skin is normal. Musculoskeletal: Circulation, motion, and sensation intact. 22:30 Reassessment: No changes from previously documented assessment. lp1 23:32 Reassessment: Patient and/or family updated on plan of care and expected duration. Pain bb level reassessed. pt resting quietly, neb mask in place, IV site intact, patent, with fluids infusing awaiting diagnostic results. 12/14 00:45 Reassessment: Patient appears in no apparent distress at this time. Patient and/or lp1 family updated on plan of care and expected duration. Pain level reassessed. Patient resting, eyes closed, respirations even. 02:00 Reassessment: pt appears to be sleeping, eyes closed, resp tachypneic, unlabored, IV bb site intact, patent with fluids infusing awaiting results. 03:03 Reassessment: pt appears to be sleeping, eyes closed, resp tachypneic, IV site intact, bb patent, with fluids infusing, awaiting room assignment, Dr Zelaya discussed need for admit with pt who verbalized understanding of and agrees to plan of care. Vital Signs: 12/13 21:25 BP 188 / 78; Pulse 94; Resp 20; Temp 98.1(O); Pulse Ox 94% on R/A; Weight 63.5 kg (R); fc Height 5 ft. 5 in. (165.10 cm) (R); Pain 0/10; 22:30 BP 166 / 90; Pulse 90; Resp 19; Pulse Ox 94% on R/A; lp1 23:31 BP 178 / 92; Pulse 62; Resp 20 S; Temp 98.3(O); Pulse Ox 100% on Nebulizer Mask; bb 12/14 00:30 BP 147 / 69; Pulse 94; Resp 17; Pulse Ox 94% on R/A; lp1 02:00 BP 155 / 78; Pulse 90; Resp 26 S; Pulse Ox 92% on R/A; bb 02:58 BP 155 / 78; Pulse 92; Resp 22; Pulse Ox 94% on R/A; lp1 04:00 BP 168 / 74; Pulse 91; Resp 19; Temp 97.7(O); Pulse Ox 96% on R/A; lp1 12/13 21:25 Body Mass Index 23.30 (63.50 kg, 165.10 cm) ED Course: 12/13 21:25 Arm band placed on Patient placed in an exam room, on a stretcher. fc 21:25 Patient has correct armband on for positive identification. Placed in gown. Bed in low fc position. Call light in reach. Side rails up X2. erection shop supervisor on. Pulse ox on. NIBP on. 21:33 Patient arrived in ED. fc 21:36 Triage completed. fc 21:54 Juni Zelaya MD is Attending Physician. [facility] 21:58 Pratima Vail, ORA is Primary Nurse. lp1 22:24 Radiology exam delayed due to lab results not completed at this time. (BUN/Creatinine) nj IV insertion attempt and/or patient not having appropriate IV at this time. 22:40 XRAY Chest (1 view) In Process Unspecified. EDMS 23:03 Inserted saline lock: 20 gauge in left antecubital area, using aseptic technique. Blood ar5 collected. 23:03 First set of blood cultures drawn by me. ar5 23:20 Second set of blood cultures drawn by me. 12/14 00:30 CT completed. Patient tolerated procedure well. Patient moved to CT via stretcher. Patient moved back from CT. 01:16 Soft Tissue Neck W/Contr CT In Process Unspecified. [facility] [place] 02:09 Arun Zuniga DO is Hospitalizing Provider. [facility] 03:05 No provider procedures requiring assistance completed. Patient admitted, IV remains in bb place. Administered Medications: 12/13 23:00 Drug: Xopenex 3.75 mg Route: Inhalation; lp1 23:00 Drug: AtroVENT Aerosol 0.5 mg Route: Inhalation; lp1 23:17 Drug: Pepcid 20 mg Route: IVP; Site: left forearm; 12/14 00:48 Follow up: Response: No adverse reaction 12/13 23:17 Drug: Decadron - Dexamethasone 10 mg Route: IVP; Site: left forearm; 12/14 00:47 Follow up: Response: No adverse reaction 12/13 23:17 Drug: NS 0.9% 1000 ml Route: IV; Rate: 125 ml/hr; Site: left forearm; 12/14 04:26 Follow up: IV Status: IV converted to saline lock [facility] 12/13 23:26 Drug: levofloxacin 500 mg Volume: 100 ml; Route: IVPB; Infused Over: 60 mins; Site: left forearm; 12/14 00:49 Follow up: IV Status: Completed infusion; IV Intake: 150ml 1 Intake: 00:49 IV: 150ml; Total: 150ml. lp1 Outcome: 02:10 Decision to Hospitalize by Provider. chidi 03:05 Instructed on the need for admit. bb 04:04 Admitted to Tele accompanied by nurse, via wheelchair, room 213, with chart, Report bb called to F[place] PAYAN 04:04 Condition: stable 04:27 Patient left the ED. lp1 Signatures: Dispatcher [employer] Juni Marin MD MD cha Hagler, Ervin eh Chretien, Felicia, RN RN Jacki Zepeda RN RN bb Pratima Vail RN RN lp1 Rober Ortega Autumn ar5 Corrections: (The following items were deleted from the chart) 02:02 02:00 Reassessment: pt appears to be sleeping, eyes closed, resp unlabored, IV site bb intact, patent with fluids infusing awaiting results bb
--- NOTE | 2018-12-14 02:12 | EDPHYS ---
Physician Documentation [facility] Name: Richie Paulino Age: 73 yrs Sex: Male : 1945 Arrival Date: 12/13/2018 Time: 21:33 Bed 3 Private MD: ED Physician Juni Zelaya HPI: 12/13 22:17 This 73 yrs old Male presents to ER via EMS with complaints of Shortness Of chidi Breath. 22:17 The patient has shortness of breath at rest, with light activity. Onset: The chidi symptoms/episode began/occurred 3 day(s) ago. Duration: The symptoms are continuous, and are steadily getting worse. The patient's shortness of breath is aggravated by coughing, supine position, is alleviated by pursed lip breathing, sitting up, application of supplemental oxygen. Associated signs and symptoms: Pertinent positives: non-productive cough. Severity of symptoms: At their worst the symptoms were mild moderate in the emergency department the symptoms are unchanged. The patient has experienced similar episodes in the past, several times. Historical: - Allergies: 21:39 Amoxicillin; fc 21:39 PENICILLINS; fc 21:39 Erythromycin; fc - Home Meds: 21:39 Pt states that he is unable to take any medications PO [Active]; fc - PMHx: 21:39 Anxiety; COPD; Diabetes - NIDDM; GERD; Gout; High Cholesterol; Hypertension; insomnia; fc CAD; [place]; PVD; asbestosis; throat cancer; - Immunization history:: Last tetanus immunization: up to date. - Social history:: Smoking status: Patient uses tobacco products, 2 cigs a day, Patient/guardian denies using alcohol, street drugs. - Ebola Screening: : Patient negative for fever greater than or equal to 101.5 degrees Fahrenheit, and additional compatible Ebola Virus Disease symptoms Patient denies exposure to infectious person Patient denies travel to an Ebola-affected area in the 21 days before illness onset. - Family history:: not pertinent. ROS: 22:17 Constitutional: Negative for fever, chills, and weight loss, Eyes: Negative for injury, chidi pain, redness, and discharge, Neck: Negative for injury, pain, and swelling, Cardiovascular: Negative for chest pain, palpitations, and edema, Abdomen/GI: Negative for abdominal pain, nausea, vomiting, diarrhea, and constipation, Back: Negative for injury and pain, : Negative for injury, bleeding, discharge, and swelling, MS/Extremity: Negative for injury and deformity, Skin: Negative for injury, rash, and discoloration, Neuro: Negative for headache, weakness, numbness, tingling, and seizure, Psych: Negative for depression, anxiety, suicide ideation, homicidal ideation, and hallucinations, Allergy/Immunology: Negative for hives, rash, and allergies, Endocrine: Negative for neck swelling, polydipsia, polyuria, polyphagia, and marked weight changes, Hematologic/Lymphatic: Negative for swollen nodes, abnormal bleeding, and unusual bruising. 22:17 ENT: Positive for difficulty handling secretions, difficulty swallowing, sinus congestion, sore throat. Exam: 22:17 Constitutional: This is a well developed, well nourished patient who is awake, alert, chidi and in no acute distress. Head/Face: Normocephalic, atraumatic. Eyes: Pupils equal round and reactive to light, extra-ocular motions intact. Lids and lashes normal. Conjunctiva and sclera are non-icteric and not injected. Cornea within normal limits. Periorbital areas with no swelling, redness, or edema. Neck: Trachea midline, no thyromegaly or masses palpated, and no cervical lymphadenopathy. Supple, full range of motion without nuchal rigidity, or vertebral point tenderness. No Meningismus. Chest/axilla: Normal chest wall appearance and motion. Nontender with no deformity. No lesions are appreciated. Cardiovascular: Regular rate and rhythm with a normal S1 and S2. No gallops, murmurs, or rubs. Normal PMI, no JVD. No pulse deficits. Respiratory: Lungs have equal breath sounds bilaterally, clear to auscultation and percussion. No rales, rhonchi or wheezes noted. No increased work of breathing, no retractions or nasal flaring. Abdomen/GI: Soft, non-tender, with normal bowel sounds. No distension or tympany. No guarding or rebound. No evidence of tenderness throughout. Back: No spinal tenderness. No costovertebral tenderness. Full range of motion. Skin: Warm, dry with normal turgor. Normal color with no rashes, no lesions, and no evidence of cellulitis. MS/ Extremity: Pulses equal, no cyanosis. Neurovascular intact. Full, normal range of motion. Neuro: Awake and alert, GCS 15, oriented to person, place, time, and situation. Cranial nerves II-XII grossly intact. Motor strength 5/5 in all extremities. Sensory grossly intact. Cerebellar exam normal. Normal gait. Psych: Awake, alert, with orientation to person, place and time. Behavior, mood, and affect are within normal limits. 22:17 ENT: Posterior pharynx: no acute changes. 22:17 Respiratory: mild respiratory distress is noted, Respirations: labored breathing, that is mild, tachypnea, 20 Breath sounds: bronchial sounds, decreased breath sounds, rhonchi, wheezing: expiratory Vital Signs: 21:25 BP 188 / 78; Pulse 94; Resp 20; Temp 98.1(O); Pulse Ox 94% on R/A; Weight 63.5 kg (R); fc Height 5 ft. 5 in. (165.10 cm) (R); Pain 0/10; 22:30 BP 166 / 90; Pulse 90; Resp 19; Pulse Ox 94% on R/A; lp1 23:31 BP 178 / 92; Pulse 62; Resp 20 S; Temp 98.3(O); Pulse Ox 100% on Nebulizer Mask; bb 12/14 00:30 BP 147 / 69; Pulse 94; Resp 17; Pulse Ox 94% on R/A; lp1 02:00 BP 155 / 78; Pulse 90; Resp 26 S; Pulse Ox 92% on R/A; bb 02:58 BP 155 / 78; Pulse 92; Resp 22; Pulse Ox 94% on R/A; lp1 04:00 BP 168 / 74; Pulse 91; Resp 19; Temp 97.7(O); Pulse Ox 96% on R/A; lp1 12/13 21:25 Body Mass Index 23.30 (63.50 kg, 165.10 cm) fc MDM: 12/13 21:54 Patient medically screened. [facility] 22:20 Data reviewed: vital signs, nurses notes, lab test result(s), EKG, radiologic studies, [facility] CT scan, plain films. 12/13 22:16 Order name: Basic Metabolic Panel; Complete Time: 23:53 [facility] 12/13 22:16 Order name: CBC with Diff; Complete Time: 23:53 [facility] 12/13 22:16 Order name: LFT's; Complete Time: 23:53 [facility] 12/13 22:16 Order name: Magnesium; Complete Time: 23:53 [facility] 12/13 22:16 Order name: NT PRO-BNP; Complete Time: 23:53 [facility] 12/13 22:16 Order name: PT-INR; Complete Time: 23:53 [facility] 12/13 22:16 Order name: Troponin (emerg Dept Use Only); Complete Time: 23:53 [facility] 12/13 22:16 Order name: Blood Culture Adult (2) [facility] 12/14 03:19 Order name: Transferrin Sat/Iron Binding EDMS 12/14 03:19 Order name: Basic Metabolic Panel EDMS 12/14 03:19 Order name: Basic Metabolic Panel EDMS 12/14 03:19 Order name: CBC with Automated Diff EDMS 12/14 03:19 Order name: CBC with Automated Diff EDMS 12/14 03:19 Order name: NT PRO-BNP EDMS 12/13 22:16 Order name: XRAY Chest (1 view) [facility] 12/13 22:16 Order name: EKG; Complete Time: 22:18 [facility] 12/13 22:16 Order name: Cardiac monitoring; Complete Time: 22:29 [facility] 12/13 22:16 Order name: EKG - Nurse/Tech; Complete Time: 22:29 [facility] 12/13 22:16 Order name: IV Saline Lock; Complete Time: 23:07 [facility] 12/13 22:16 Order name: Labs collected and sent; Complete Time: 23:07 [facility] 12/13 22:16 Order name: O2 Per Protocol; Complete Time: 22:46 [facility] 12/13 22:16 Order name: O2 Sat Monitoring; Complete Time: 22:46 [facility] 12/13 22:16 Order name: Soft Tissue Neck W/Contr CT [facility] 12/14 03:19 Order name: NT PRO-BNP EDMS Administered Medications: 23:00 Drug: Xopenex 3.75 mg Route: Inhalation; lp1 23:00 Drug: AtroVENT Aerosol 0.5 mg Route: Inhalation; lp1 23:17 Drug: Pepcid 20 mg Route: IVP; Site: left forearm; 12/14 00:48 Follow up: Response: No adverse reaction 12/13 23:17 Drug: Decadron - Dexamethasone 10 mg Route: IVP; Site: left forearm; 12/14 00:47 Follow up: Response: No adverse reaction 12/13 23:17 Drug: NS 0.9% 1000 ml Route: IV; Rate: 125 ml/hr; Site: left forearm; 12/14 04:26 Follow up: IV Status: IV converted to saline lock [facility] 12/13 23:26 Drug: levofloxacin 500 mg Volume: 100 ml; Route: IVPB; Infused Over: 60 mins; Site: left forearm; 12/14 00:49 Follow up: IV Status: Completed infusion; IV Intake: 150ml [facility] Disposition: 12/14/18 02:10 Hospitalization ordered by Arun Zuniga for Inpatient Admission. Preliminary diagnosis are Dyspnea, Chronic obstructive pulmonary disease with (acute) exacerbation, Stridor, Hypoxemia. - Bed requested for Telemetry/MedSurg (Inpatient). - Status is Inpatient Admission. lp1 - Condition is Fair. - Problem is new. - Symptoms have improved. UTI on Admission? No Signatures: Dispatcher [employer] EDMS Carlita Hannon RN RN mw Anderson, Corey, MD MD cha Chretien, Felicia, RN RN Jacki Zepeda RN RN Pratima Vail RN RN [facility] Corrections: (The following items were deleted from the chart) 03:53 02:10 Hospitalization Ordered by Arun Zuniga DO for Inpatient Admission. Preliminary diagnosis is Dyspnea; Chronic obstructive pulmonary disease with (acute) exacerbation; Stridor; Hypoxemia. Bed requested for Telemetry/MedSurg (Inpatient). Status is Inpatient Admission. Condition is Fair. Problem is new. Symptoms have improved. UTI on Admission? No. chidi 04:27 03:53 12/14/2018 02:10 Hospitalization Ordered by Arun Zuniga DO for Inpatient lp1 Admission. Preliminary diagnosis is Dyspnea; Chronic obstructive pulmonary disease with (acute) exacerbation; Stridor; Hypoxemia. Bed requested for Telemetry/MedSurg (Inpatient). Status is Inpatient Admission. Condition is Fair. Problem is new. Symptoms have improved. UTI on Admission? No. [place]
--- NOTE | 2018-12-14 02:59 | P.HP ---
Certification for Inpatient With expected LOS: <2 Midnights Patient will require the following post-hospital care: None Practitioner: I am a practitioner with admitting privileges, knowledge of patient current condition, hospital course, and medical plan of care. Services: Services provided to patient in accordance with Admission requirements found in Title 42 Section 412.3 of the Code of Federal Regulations Patient History Date of Service: 12/14/18 Reason for admission: Shortness of breath History of Present Illness: 73-year-old man with a history of laryngeal cancer status post radiation therapy , history of COPD presented to the emergency department with a complaint of shortness of breath and wheezing of 1 day duration. Patient also reports cough productive of yellow to brown sputum. He continues to smoke. He also states that the AC in his house is not working and his home has been quite hot which could have contributed to his COPD exacerbation. In the ED, patient noted to be saturating well on room air. He is wheezing and coughing. Initial mild stridor is reported by the ED physician. CT soft tissue of neck done reports no acute changes. He does have chronic laryngeal changes from radiation therapy. Patient was given a shot of IV dexamethasone, Xopenex, Atrovent inhaler nebs and IV Levaquin. He is placed under observation for further management. Allergies erythromycin base [Erythromycin Base] Allergy (Verified 02/03/18 10:50) Rash Penicillins Allergy (Verified 02/03/18 10:50) Anaphylaxis Azithromycin Allergy (Uncoded 02/03/18 10:50) Unknown Home Medications: Allopurinol 300 mg PO DAILY 12/23/17 Alprazolam [Xanax Xr] 1 mg PO BID 12/23/17 Aspirin Chewable [Aspirin Chewable*] 81 mg PO DAILY 12/23/17 Clopidogrel Bisulfate [Plavix] 75 mg PO DAILY 12/23/17 Fenofibrate [Tricor] 145 mg PO DAILY 12/23/17 Metformin HCl 1,000 mg PO BID 12/23/17 Metoprolol Succinate [Toprol Xl] 50 mg PO DAILY 12/23/17 Pantoprazole [Protonix Tab] 40 mg PO DAILY 12/23/17 Pravastatin Sodium 80 mg PO BEDTIME 12/23/17 Ropinirole HCl 0.5 mg PO DAILY 12/23/17 Temazepam [Restoril] 30 mg PO BEDTIME 12/23/17 Tramadol HCl [Ultram] 100 mg PO TID 12/23/17 Valsartan/Hydrochlorothiazide [Valsartan-Hctz 320-12.5 mg Tab] 1 tab PO DAILY hydroCHLOROthiazide [Hydrochlorothiazide] 12.5 mg PO DAILY 12/23/17 - Past Medical/Surgical History Diabetic: Yes -: restless leg -: CAD -: [place] -: PVD -: NIDDM -: high choles -: gout -: copd -: hypertension -: asbestosis -: Coronary artery bypass grafting - Family History Mother -: Heart disease, Hypertension, Diabetes, Stroke Father History Unknown: Yes - Social History Smoking Status: Current every day smoker Alcohol use: No CD- Drugs: No Caffeine use: Yes Review of Systems Other: General: No fever, no malaise, no unintentional weight loss. Eyes: No eye discharge, CVS: No chest pain, no palpitation, no lightheadedness. GI: No abdominal pain, no nausea no vomit, no constipation, no diarrhea. Genitourinary: No dysuria, no urinary frequency, no incontinence, no hematuria. Musculoskeletal: No joint pains, or joint swelling, no gait instability. Neurology: No headache, no asymmetric, weakness, no problem with swallowing. Except as documented, all other systems reviewed and negative. Physical Examination - Physical Exam General: Alert, In no apparent distress, Oriented x3 HEENT: Atraumatic, Normocephalic, PERRLA, Mucous membr. moist/pink Neck: Supple, 2+ carotid pulse no bruit, JVD not distended Respiratory: Normal air movement, Expiratory wheezes (No crackles) Cardiovascular: No edema, Normal pulses, Regular rate/rhythm, Normal S1 S2, No murmurs Capillary refill: <2 Seconds Gastrointestinal: Normal bowel sounds, Soft and benign, Non-distended, No tenderness Musculoskeletal: No clubbing, No erythema, No tenderness Integumentary: No rashes, No erythema Neurological: Normal strength at 5/5 x4 extr, Cranial nerves 3-12 intact, Normal affect - Studies Laboratory Data (last 24 hrs) 12/13/18 23:03: PT 13.2 H, INR 1.12 12/13/18 23:03: WBC 5.1, Hgb 9.1 L, Hct 28.3 L, Plt Count 275 12/13/18 23:03: Sodium 143, Potassium 3.8, BUN 25 H, Creatinine 0.68, Glucose 108 H, Magnesium 1.9, Total Bilirubin 0.1 L, AST 14 L, ALT 16, Alkaline Phosphatase 91 Imagings Data: EKG: Normal sinus rhythm Assessment and Plan - Problems (Diagnosis) (1) COPD exacerbation Current Visit: No Status: Acute (2) History of laryngeal cancer Current Visit: Yes Status: Chronic (3) Anemia Current Visit: Yes Status: Acute (4) Diabetes mellitus type 2 in nonobese Current Visit: Yes Status: Acute - Plan Place under observation on general medical floor Schedule bronchodilators. IV Solu-Medrol IV Levaquin for infective bronchitis Chest physiotherapy Blood glucose management with insulin sliding scale. Watch for steroid induced hyperglycemia. Hold metformin. Check iron profile. Monitor CBC Further anemia workup as outpatient. Discharge Plan: Home - Advance Directives Does patient have a Living Will: No Does patient have a Durable POA for Healthcare: No - Code Status/Comfort Care Code Status Assessed: Yes Code Status: Full Code
[2018-12-14] MEDS ORDERED: ONDANSETRON 4 MG/2 ML VIAL IV PRN (03:11)
[2018-12-14] MEDS ORDERED: IPRATROPIUM BROM 0.5MG/2.5ML NEB PRN (03:11)
[2018-12-14] MEDS ORDERED: ALBUTEROL 2.5 MG/3 ML NEB SOL NEB PRN (03:11)
[2018-12-14] MEDS ORDERED: ACETAMINOPHEN 500 MG TAB PO PRN (03:11)
[2018-12-14] MEDS ORDERED: GLUCAGON 1 MG/VIAL IM PRN (03:18)
[2018-12-14] MEDS ORDERED: D50W 25 GM/50 ML SYRINGE IV PRN (03:18)
[2018-12-14 04:51] VITALS: BMI 21.2
[2018-12-14] MEDS: METHYLPREDNISOLONE 40 MG INJ IV SCH ×2 (07:28→16:40)
[2018-12-14] MEDS: INSULIN -REGULAR HUMAN 50 UNIT/0.5 ML ML SQ SCH ×3 (07:29→16:30)
--- NOTE | 2018-12-14 07:45 | EKG ---
Test Date: 2018-12-13 Test Time: 22:15:54 [employer] Officer: ZAN MEASUREMENT RESULTS: Intervals: Rate: 83 ME: 132 QRSD: 96 QT: 382 QTc: 448 Palmer: P: 90 ME: 132 QRS: 84 T: 78 INTERPRETIVE STATEMENTS: Sinus rhythm with premature atrial complexes Otherwise normal ECG Compared to ECG 09/04/2018 12:56:09 Atrial premature complex(es) now present Myocardial infarct finding no longer present Electronically Signed On 12-14-18 07:45:10 CDT by Gabriel Sawyer
--- NOTE | 2018-12-14 08:00 | RAD REPORT ---
EXAM DESCRIPTION: RAD - Chest Single View - 12/13/2018 10:40 pm CLINICAL HISTORY: Cough;COPD Chest pain. COMPARISON: Chest Single View dated 09/04/2018; Chest Single View dated 12/28/2017; Chest Single View d ated 12/23/2017; Chest Pa And Lat (2 Views) dated 09/21/2017; Chest For Pe Angio dated 09/04/2018 FINDINGS: Portable technique limits examination quality. The lungs are emphysematous but grossly clear. The heart is normal in size. No displaced fractures. IMPRESSION: COPD.
--- NOTE | 2018-12-14 10:09 | P.DS ---
Admission Date: 12/14/18 Discharge Date: 12/14/18 Primary Care Provider: Dr. Gardiner; Pulmonary-Dr. Lauren; Oncology-Dr. Julien Disposition: ROUTINE DISCHARGE Discharge Condition: GOOD Reason for Admission: Shortness of breath Consultations: none Procedures: CT Neck: 1. Findings similar when compared to prior CT scan performed 09/04/2018. There is diffuse soft tissue thickening of the epiglottis and hypopharyngeal soft tissues. There is effacement of the piriform sinuses worse on the right and asymmetric of the vocal folds with prominent calcification in the mid region of the left vocal fold which may reflect rotation of the cartilage. Findings may be related to post treatment changes. Residual and/or recurrent neoplasm could not be excluded. 2. Moderate short focal stenosis of the proximal left ICA measuring 50%. 3. Questionable cortical thickening and irregularity of the left thyroid cartilage since prior study. Findings likely related to post treatment changes versus residual and/or recurrent neoplasm. CXR: FINDINGS: Portable technique limits examination quality. The lungs are emphysematous but grossly clear. The heart is normal in size. No displaced fractures. IMPRESSION: COPD. Swallow Study: Medical Problem List: Shortness of breath secondary to COPD exacerbation with infective bronchitis Chronic anemia with iron diff Chronic coarseness, Dysphagia likely related to post radiation treatment versus residual and/or recurrent neoplasm with history of squamous cell laryngeal cancer Hypertension Coronary artery disease/carotid arterial disease Diabetes mellitus type 2 non insulin dependent GERD Brief History of Present Illness: 73-year-old female with history of laryngeal cancer with prior radiation therapy, COPD, and CAD presented to the emergency room for shortness of breath. Patient reported increasing shortness of breath and productive sputum. Patient still continues to smoke. He reports that his air condition unit in the house has not been working. It has been hot. In the ER patient evaluated. Patient found to have COPD exacerbation with likely infective bronchitis. Patient admitted for observation and treatment. Hospital Course: Patient presented with shortness of breath and cough. Patient with underlying COPD. This was secondary to COPD exacerbation with suspected infective bronchitis. Patient responded to therapy well. Patient without significant shortness of breath. Room-air saturations within normal range. At discharge patient will continue with prednisone 20 mg 1 pill twice daily for 5 days then 1 pill once daily for 5 days. Patient will continue with his COPD medication- Brovana 1 unit dose twice daily and albuterol 1 unit dose 3 times a day as needed for shortness of breath. Recommend follow up with pulmonology in 1 week to follow up this hospitalization. Prior to discharge sputum culture will be obtained. This will need to be followed up by his PCP. Patient will also go home on Levaquin 500 mg daily for 7 days. Recommend to recheck chest x-ray in 2 -4 weeks to follow up his COPD. Patient also reported some dysphagia, weight loss and poor intake. Patient has chronic coarseness. Increased sputum production noted. Sputum culture obtained. Patient has underlying squamous cell laryngeal cancer. He has received radiation therapy. Patient needs to follow up with his oncologist/ radiation oncology. Due to his symptoms speech therapy was consulted for further evaluation and treatment. Swallow study was performed. Dietary consult was also address for recommendations on oral intake. CT scan shows no significant changes from prior study. Dysphagia likely related to post radiation treatment verses residual verses on going neoplasm. Recommendation is to follow up with Oncology in 1-2 weeks to follow up his care and further address. Patient will continue with speech recommendations. Encourage oral intake. If patient continues to have poor oral intake with weight loss, oncology may need to recommend PEG tube placement if patient agrees. This can be done as an outpatient. Patient with hypertension. This has remained stable. At discharge he will continue with his medications. Recommend to maintain blood pressures less 150/ 80. Further adjustment can be done by his PCP. Patient with chronic anemia. Iron deficiency identified. Patient started on iron. At discharge he will continue with iron 325 mg 1 pill twice daily. Recommend follow up with GI to further evaluate. Chronic anemia likely related to his laryngeal cancer. Recommend to recheck CBC in 2-4 weeks to monitor his progress. If patient not able to tolerate oral medication patient may require IV iron. This can be arranged by oncology as an outpatient. Patient with Coronary artery disease/carotid arterial disease. Patient will continue with medications. Recommend follow up with cardiology to further monitor and address. Patient with underlying diabetes mellitus type 2 non-insulin dependent. A1c obtained. Recommend to continue with current medication. Recommend blood sugar less than 140 fasting and less than 200 after meals. Further adjustment can be done by his PCP. Patient likely with underlying GERD. Recommend to continue Protonix 40 mg daily. Recommend follow up with GI to further address especially in light of his chronic anemia. Patient may require EGD/colonoscopy in the future to further evaluate. Vital Signs/Physical Exam: Temp Pulse Resp BP Pulse Ox 97.0 F 72 18 162/72 H 96 12/14/18 08:00 12/14/18 08:00 12/14/18 08:00 12/14/18 08:00 12/14/18 08:00 General: Alert, In no apparent distress, Oriented x3, Cooperative HEENT: Atraumatic Neck: Supple Respiratory: Clear to auscultation bilaterally, Normal air movement Cardiovascular: Normal pulses, Regular rate/rhythm Gastrointestinal: Normal bowel sounds, Soft and benign, Non-distended, No tenderness, No masses, No rebound, No guarding Musculoskeletal: No erythema, No tenderness, No warmth Integumentary: No tenderness/swelling, No erythema, No warmth, No cyanosis Neurological: Normal speech, Normal strength at 5/5 x4 extr, Normal tone, Normal affect Laboratory Data at Discharge: WBC 5.1 K/uL (4.3-10.9) 12/13/18 23:03 Hgb 9.1 g/dL (13.6-17.9) L 12/13/18 23:03 Hct 28.3 % (39.6-49.0) L 12/13/18 23:03 Plt Count 275 K/uL (152-406) 12/13/18 23:03 PT 13.2 SECONDS (9.5-12.5) H 12/13/18 23:03 INR 1.12 12/13/18 23:03 Sodium 143 mmol/L (136-145) 12/13/18 23:03 Potassium 3.8 mmol/L (3.5-5.1) 12/13/18 23:03 BUN 25 mg/dL (7-18) H 12/13/18 23:03 Creatinine 0.68 mg/dL (0.55-1.3) 12/13/18 23:03 Glucose 108 mg/dL (74-106) H 12/13/18 23:03 Magnesium 1.9 mg/dL (1.8-2.4) 12/13/18 23:03 Total Bilirubin 0.1 mg/dL (0.2-1.0) L 12/13/18 23:03 AST 14 U/L (15-37) L 12/13/18 23:03 ALT 16 U/L (12-78) 12/13/18 23:03 Alkaline Phosphatase 91 U/L (45-117) 12/13/18 23:03 Home Medications: Allopurinol 300 mg PO DAILY 12/23/17 Alprazolam [Xanax Xr] 1 mg PO BID 12/23/17 Aspirin Chewable [Aspirin Chewable*] 81 mg PO DAILY 12/23/17 Clopidogrel Bisulfate [Plavix] 75 mg PO DAILY 12/23/17 Fenofibrate [Tricor] 145 mg PO DAILY 12/23/17 Metformin HCl 1,000 mg PO BID 12/23/17 Metoprolol Succinate [Toprol Xl] 50 mg PO DAILY 12/23/17 Pantoprazole [Protonix Tab] 40 mg PO DAILY 12/23/17 Pravastatin Sodium 80 mg PO BEDTIME 12/23/17 Ropinirole HCl 0.5 mg PO DAILY 12/23/17 Temazepam [Restoril] 30 mg PO BEDTIME 12/23/17 Tramadol HCl [Ultram] 100 mg PO TID 12/23/17 Valsartan/Hydrochlorothiazide [Valsartan-Hctz 320-12.5 mg Tab] 1 tab PO DAILY hydroCHLOROthiazide [Hydrochlorothiazide] 12.5 mg PO DAILY 12/23/17 Patient Discharge Instructions: 1. Follow up with PCP in 1-2 weeks to follow up this hospitalization. 2. Patient presented with shortness of breath and cough. Patient with underlying COPD. This was secondary to COPD exacerbation with suspected infective bronchitis. Patient responded to therapy well. Patient without significant shortness of breath. Room-air saturations within normal range. At discharge patient will continue with prednisone 20 mg 1 pill twice daily for 5 days then 1 pill once daily for 5 days. Patient will continue with his COPD medication-Brovana 1 unit dose twice daily and albuterol 1 unit dose 3 times a day as needed for shortness of breath. Recommend follow up with pulmonology in 1 week to follow up this hospitalization. Prior to discharge sputum culture will be obtained. This will need to be followed up by his PCP. Patient will also go home on Levaquin 500 mg daily for 7 days. Recommend to recheck chest x-ray in 2-4 weeks to follow up his COPD. 3. Patient also reported some dysphagia, weight loss and poor intake. Patient has chronic coarseness. Increased sputum production noted. Sputum culture obtained. Patient has underlying squamous cell laryngeal cancer. He has received radiation therapy. Patient needs to follow up with his oncologist/radiation oncology. Due to his symptoms speech therapy was consulted for further evaluation and treatment. Swallow study was performed. Dietary consult was also address for recommendations on oral intake. CT scan shows no significant changes from prior study. Dysphagia likely related to post radiation treatment verses residual verses on going neoplasm. Recommendation is to follow up with Oncology in 1-2 weeks to follow up his care and further address. Patient will continue with speech recommendations. Encourage oral intake. If patient continues to have poor oral intake with weight loss, oncology may need to recommend PEG tube placement if patient agrees. This can be done as an outpatient. 4. Patient with hypertension. This has remained stable. At discharge he will continue with his medications. Recommend to maintain blood pressures less 150/80. Further adjustment can be done by his PCP. 5. Patient with chronic anemia. Iron deficiency identified. Patient started on iron. At discharge he will continue with iron 325 mg 1 pill twice daily. Recommend follow up with GI to further evaluate. Chronic anemia likely related to his laryngeal cancer. Recommend to recheck CBC in 2-4 weeks to monitor his progress. If patient not able to tolerate oral medication patient may require IV iron. This can be arranged by oncology as an outpatient. 6. Patient with Coronary artery disease/carotid arterial disease. Patient will continue with medications. Recommend follow up with cardiology to further monitor and address. 7. Patient with underlying diabetes mellitus type 2 non-insulin dependent. A1c obtained. Recommend to continue with current medication. Recommend blood sugar less than 140 fasting and less than 200 after meals. Further adjustment can be done by his PCP. 8. Patient likely with underlying GERD. Recommend to continue Protonix 40 mg daily. Recommend follow up with GI to further address especially in light of his chronic anemia. Patient may require EGD/colonoscopy in the future to further evaluate. Diet: AHA Activity: Ad vj Time spent managing pt's care (in minutes): 55
--- NOTE | 2018-12-14 10:56 | RAD REPORT ---
EXAM DESCRIPTION: Soft Tissue Neck W/Contr EXAM DESCRIPTION: CT neck with intravenous contrast CLINICAL HISTORY: 73-year-old male with throat pain and difficulty swallowing, history of throat can cer. TECHNIQUE: CT imaging of the soft tissues of the neck were performed following the administration of intravenous contrast..The CT study is performed according to ALARA (as low as reasonably achievable) or ALARA/IMAGE GENTLY, with automatic adjustment of mA and/or kV according to patient size. Performed on: 12/13/2018 at 11:48 PM COMPARISON: Prior CT soft tissue neck performed on 09/04/2018. FINDINGS: The visualized portions of the brain and orbits are normal. The oral cavity, oropharynx and nasopharynx are normal. The parapharyngeal fat planes are preserved. There is stable diffuse thickening of the epiglottis which may be related to posttreatment change. Ac esequiel epiglottitis is felt to be less likely. As noted previously, there is diffuse soft tissue thickening involving the soft tissues of the hypoph arynx including the aryepiglottic folds and the posterior hypopharyngeal wall with effacement of the pyriform sinuses. There is thickening in the vocal folds. Again, these findings may represent posttre atment changes. There is a calcification within the left vocal fold which may represent the arytenoid cartilage (series 201, image 59). The parotid and submandibular glands are grossly within normal limits. No intrinsic mass lesions are seen. . The carotid sheaths reveal a moderate stenosis of the proximal left ICA measuring approximately 50%. The right carotid sheath is unremarkable. There is mild mucosal thickening of the sphenoid sinuses. There is trace opacification of the inferio r mastoid air cells. No definite pathologically enlarged lymph nodes are identified The thyroid gland is normal in size and configuration. The thoracic inlet is normal. The superior mediastinum and lung apices are normal. There is questionable cortical thinning and irregularity of the left thyroid cartilage when compared to the prior study. There are degenerative changes of the cervical spine. There are no focal pathologic areas of enhancement. IMPRESSION: 1. Findings similar when compared to the prior CT scan performed on 09/04/2018. There is diffuse soft tissue thickening of the epiglottis and hypopharyngeal soft tissues. There is effacement of the pyriform sinuses worse on the right and asymmetry of the vocal folds with prominent calcifica tion in the region of the left focal fold which may reflect rotation of the the arytenoid cartilage. Findings may be related to posttreatment changes. Residual and/or recurrent neoplasm cannot be entire ly excluded. 2. Moderate short focal stenosis of the proximal left ICA measuring approximately 50%. 3. Questionable cortical thinning and irregularity of the left thyroid cartilage since the prior stud y. Again, findings could be related to posttreatment changes versus residual and/or recurrent neoplas m. Electronically signed by: Bibiana Martínez DO 12/14/2018 1:11 AM CDT Due to temporary technical issues with the PACS/Fluency reporting system, reports are being signed by the in house radiologist as a courtesy to ensure prompt reporting. The interpreting radiologist is f ully responsible for the content of the report.
[2018-12-14] MEDS ORDERED: Levofloxacin 750mg IV 750 MG/150 ML BAG IV SCH (14:00)
--- NOTE | 2018-12-14 14:25 | RAD REPORT ---
EXAM DESCRIPTION: RAD - Barium Swallow Modified - 12/14/2018 2:17 pm CLINICAL HISTORY: dyphagia, thick secretions COMPARISON: No comparisons TECHNIQUE: The patient was given liquid, semi-solid and solid forms of barium. Lateral view fluorosc opic imaging was performed in conjunction with speech pathology service. FINDINGS: Laryngeal penetration: not cleared with nectar and honey Aspiration ; no cough with thin and nectar Pharyngeal residue: mild to moderate with nectar, honey, pudding, on the vallecular and posterior wal l mass significantly decreasing UES space. Total fluoroscopy time: 2 minutes and 7 seconds
[2018-12-14] MEDS ORDERED: HYDRALAZINE HCL 20 MG/ML VIAL IV PRN (15:04)
--- NOTE | 2018-12-14 15:09 | P.PN ---
Subjective Date of Service: 12/14/18 Primary Care Provider: Dr. Gardiner; Pulmonary-Dr. Lauren; Oncology-Dr. Julien Chief Complaint: Shortness of breath Subjective: Other (Patient stable at this time. Patient had abnormal swallow study. Study discussed with speech pathologist at length with patient and family present.) Physical Examination - Vital Signs Temperature: 97.8 F Blood Pressure: 158/83 Pulse: 92 Respirations: 18 Pulse Ox (%): 96 - Physical Exam General: Alert, In no apparent distress, Oriented x3, Cooperative HEENT: Atraumatic Neck: Supple, Other (Mass to the neck region) Respiratory: Expiratory wheezes, Inspiratory wheezes Cardiovascular: Normal pulses, Regular rate/rhythm Gastrointestinal: Normal bowel sounds, Soft and benign, Non-distended Neurological: Normal speech, Normal strength at 5/5 x4 extr, Normal tone, Normal affect - Studies Laboratory Data (last 24 hrs) 12/13/18 23:03: PT 13.2 H, INR 1.12 12/13/18 23:03: WBC 5.1, Hgb 9.1 L, Hct 28.3 L, Plt Count 275 12/13/18 23:03: Sodium 143, Potassium 3.8, BUN 25 H, Creatinine 0.68, Glucose 108 H, Magnesium 1.9, Total Bilirubin 0.1 L, AST 14 L, ALT 16, Alkaline Phosphatase 91 Medications List Reviewed: Yes Assessment & Plan Discharge Plan: Home Plan to discharge in: 24 Hours - Code Status/Comfort Care Code Status Assessed: Yes (Patient is do not resuscitate. Patient understands clearly. 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 Patient found to have high risk aspiration after evaluation with speech therapy and swallow study. Options of care discussed in detail with patient, , and daughter present. Speech therapist was also present. Patient understands he is high risk for aspiration due to his laryngeal cancer. Patient declines GI evaluation for PEG tube placement. Patient declines hospice. Will discuss with his ENT specialist to go over options of care if patient still requires surgical intervention. Will need to determine if cancer is terminal. CT scan shows no significant change from prior study. Will need to consider discharging patient home understanding that the patient is high risk for aspiration and does not want GI evaluation for PEG tube or hospice. Advanced directives address in detail with patient, and daughter present. Speech therapist's Mcgill of present. Patient expressed that he wants to be do not resuscitate. He understands this in detail. Will change status to do not resuscitate. Will discuss further with the ENT for options. Likely discharge tomorrow after discussion with ENT for plan of care. Chronic anemia with iron diff: Will provide IV iron. Chronic coarseness, Dysphagia likely related to post radiation treatment versus residual and/or recurrent neoplasm with history of squamous cell laryngeal cancer complicated with high risk for aspiration: Continue as above. Will discuss further with ENT. Hypertension: Will provide IV medication as needed. Coronary artery disease/carotid arterial disease: Will hold aspirin and Plavix. 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 Will provide sliding scale. GERD: Will provide medication IV. Time Spent Managing Pts Care (In Minutes): 55
[2018-12-14] MEDS ORDERED: D5 0.45 NS 1,000 ML IV SCH (16:00)
[2018-12-14] MEDS ORDERED: SOD FERRIC GLUC COMPLX/SUCROSE 125 MG in NA CHLORIDE 0.9% 100 ML IV SCH (16:00)
[2018-12-14 16:31] VITALS: BP 152/77; TEMP 97.5
[2018-12-14 16:47] VITALS: O2SAT 97
[2018-12-14] MEDS ORDERED: ARFORMOTEROL TARTRATE 15 MCG/2 ML VIAL.NEB NEB SCH (20:00)
--- NOTE | 2018-12-14 21:56 | P.PN ---
Date of Service: 12/14/18 Nursing staff called to inform me patient want to sign out AMA. I went to see patient on the floor. Reason for signing out against medical advice:He stated he need to attend to some business. He stated he needs to vacate his current property within 3 days. Mental Status examination: Patient alert and oriented x 3. He understands his current situation and environment and deemed capable of making informed decision. He was made aware of his risk of signing out against medical advice which includes risk of aspiration, asphyxiation, pneumonia and if he does not eat prescribed food consistency. I encouraged him to stay for further evaluation regarding his dysphagia. Patient voiced understanding and insisted on leaving AMA.
== END 2018-12-14 19:45 | disposition left against medical advice (07) ==
LOC: ER 21:32 → ERHOLD 12-14 03:17 → 4TH 12-14 04:05
PROVIDERS: ADMIT Internal Medicine; ATTEND Family Medicine
DX: J44.1 Chronic obstructive pulmonary disease with (acute) exacerbation (principal); J20.8 Acute bronchitis due to other specified organisms; J44.0 Chronic obstructive pulmonary disease with (acute) lower respiratory infection; I25.10 Atherosclerotic heart disease of native coronary artery without angina pectoris; R13.10 Dysphagia, unspecified; I10 Essential (primary) hypertension; E11.9 Type 2 diabetes mellitus without complications; K21.9 Gastro-esophageal reflux disease without esophagitis; D50.9 Iron deficiency anemia, unspecified; F17.210 Nicotine dependence, cigarettes, uncomplicated; Z85.21 Personal history of malignant neoplasm of larynx; Z88.0 Allergy status to penicillin; Z88.3 Allergy status to other anti-infective agents; Z53.21 Procedure and treatment not carried out due to patient leaving prior to being seen by health care provider; Z92.3 Personal history of irradiation
CPT/HCPCS: 96365; 96361; 93005; 87040 ×2; 87070; 85025; 80048; 36415 ×2; 83735; 87205; 85610; 82962 ×3; 80076; 87077; 87186; 83036; 84484; 82607; 83540; 83880; 84466; 70491; 71045; 74230; 92526; 92611; 97161; 94760 ×2; 96375; 99285; Q9967; J1100; J2916; J7030; J2920 ×2; G0378 ×2

== ENCOUNTER 2018-12-19 12:34 | Emergency (ER) | payer OTHER ==
--- OUTSIDE RECORDS SUMMARY | 2018-12-19 12:36 | XMS REPORT ---
:1945 [facility] [address] [place] [address] Dr. Gardner [address] [place] [id number] Care Team Providers Name Role Phone Unavailable Unavailable Unavailable Problems This patient has no known problems. Allergies, Adverse Reactions, Alerts This patient has no known allergies or adverse reactions. Medications This patient has no known medications.
--- NOTE | 2018-12-19 15:18 | EDPHYS ---
Physician Documentation [facility] Name: Richie Paulino Age: 73 yrs Sex: Male : 1945 Arrival Date: 12/19/2018 Time: 12:36 Bed 27 Private MD: ED Physician Poncho Velásquez HPI: 12/19 15:25 This 73 yrs old Male presents to ER via EMS with complaints of Difficulty gs Swallowing. 15:25 Onset: The symptoms/episode began/occurred 1 month(s) ago. Associated signs and gs symptoms: Pertinent negatives: nausea and vomiting, chest pain. Modifying factors: the symptoms are aggravated by food. The patient has been recently been admitted at [facility], was discharged last week, decided to leave ama. Historical: - PMHx: 15:33 Hypertension; CAD; Diabetes - NIDDM; Cancer; gs - Immunization history:: Adult Immunizations up to date. - Social history:: Smoking status: Patient uses tobacco products, unknown amount. - Ebola Screening: : No symptoms or risks identified at this time. ROS: 15:33 All other systems are negative. gs Exam: 15:33 Head/Face: Normocephalic, atraumatic. Eyes: Pupils equal round and reactive to light, gs extra-ocular motions intact. Lids and lashes normal. Conjunctiva and sclera are non-icteric and not injected. Cornea within normal limits. Periorbital areas with no swelling, redness, or edema. 15:33 Abdomen/GI: Soft, non-tender, with normal bowel sounds. No distension or tympany. No guarding or rebound. No evidence of tenderness throughout. Back: No spinal tenderness. No costovertebral tenderness. Full range of motion. Skin: Warm, dry with normal turgor. Normal color with no rashes, no lesions, and no evidence of cellulitis. MS/ Extremity: Pulses equal, no cyanosis. Neurovascular intact. Full, normal range of motion. Neuro: Awake and alert, GCS 15, oriented to person, place, time, and situation. Cranial nerves II-XII grossly intact. Motor strength 5/5 in all extremities. Sensory grossly intact. Cerebellar exam normal. Normal gait. 15:33 Constitutional: The patient appears alert, awake. 15:33 Neck: External neck: fulness. 15:33 Cardiovascular: Rate: normal, Rhythm: regular. 15:33 Respiratory: Breath sounds: no acute changes, rhonchi, that are mild, are scattered. Vital Signs: 12:43 BP 135 / 74; Pulse 100; Resp 24; Temp 97.5; Pulse Ox 100% on 4 lpm NC; Weight 54.43 kg; bp 14:46 BP 133 / 49; Pulse 88; Resp 18; Pulse Ox 100% ; bp 15:33 BP 131 / 65; Pulse 86; Resp 21; Temp 97.8(O); Pulse Ox 100% 4 lpm ; rv MDM: 13:17 Patient medically screened. 15:33 Data reviewed: vital signs, nurses notes. ED course: will continue meds for copd gs exacerbation and have spoke with dr birch says he can be discharged dr ortiz will see in office for PEG tommorrow. Administered Medications: No medications were administered Disposition: 12/19/18 15:17 Discharged to Home. Impression: Dysphagia, Mucopurulent chronic bronchitis. - Condition is Stable. - Discharge Instructions: Dysphagia, Chronic Obstructive Pulmonary Disease Exacerbation, [id number]. - Prescriptions for Levaquin 500 mg Oral Tablet - take 1 tablet by ORAL route once daily for 7 days; 5 tablet. Prednisone 20 mg Oral Tablet - take 1 tablet by ORAL route once daily for 5 days; 5 tablet. - Medication Reconciliation Form, Thank You Letter, Antibiotic Education, Prescription Opioid Use form. - Follow up: Private Physician; When: 2 - 3 days; Reason: Re-evaluation by your physician. Follow up: Ranulfo Ortiz MD; When: Tomorrow; Reason: Recheck today's complaints. Signatures: Poncho Velásquez MD MD Ricardo Philip RN RN Johny Acosta, ORA RN rv Corrections: (The following items were deleted from the chart) 15:34 15:17 12/19/2018 15:17 Discharged to Home. Impression: Dysphagia; Mucopurulent chronic rv bronchitis. Condition is Stable. Discharge Instructions: Dysphagia, Chronic Obstructive Pulmonary Disease Exacerbation, [id number]. Prescriptions for Levaquin 500 mg Oral Tablet - take 1 tablet by ORAL route once daily for 7 days; 5 tablet, Prednisone 20 mg Oral Tablet - take 1 tablet by ORAL route once daily for 5 days; 5 tablet. and Forms are Medication Reconciliation Form, Thank You Letter, Antibiotic Education, Prescription Opioid Use. Follow up: Private Physician; When: 2 - 3 days; Reason: Re-evaluation by your physician. Follow up: Ranulfo Ortiz; When: Tomorrow; Reason: Recheck today's complaints. gs
--- NOTE | 2018-12-19 15:18 | ER ---
Nurse's Notes [facility] Name: Richie Paulino Age: 73 yrs Sex: Male : 1945 Arrival Date: 12/19/2018 Time: 12:36 Bed 27 Private MD: Diagnosis: Dysphagia;Mucopurulent chronic bronchitis Presentation: 12/19 12:43 Presenting complaint: EMS states: BACK PAIN AND SHORTNESS OF BREATH, CHRONIC bp CONDITIONS. Transition of care: patient was not received from another setting of care. Onset of symptoms is unknown. Risk Assessment: Do you want to hurt yourself or someone else? Patient reports no desire to harm self or others. Initial Sepsis Screen: Does the patient meet any 2 criteria? HR > 90 bpm. No. Patient's initial sepsis screen is negative. Does the patient have a suspected source of infection? No. Patient's initial sepsis screen is negative. Care prior to arrival: Oxygen administered. via nasal cannula. 12:43 Method Of Arrival: EMS: [facility] bp 12:43 Acuity: RICHARD 3 bp Triage Assessment: 12:43 General: Appears in no apparent distress. comfortable, unkempt, Behavior is bp cooperative, appropriate for age, anxious. Pain: Complains of pain in back. EENT: No deficits noted. Neuro: No deficits noted. Cardiovascular: No deficits noted. Respiratory: Reports shortness of breath. GI: No signs and/or symptoms were reported involving the gastrointestinal system. : No signs and/or symptoms were reported regarding the genitourinary system. Derm: No signs and/or symptoms reported regarding the dermatologic system. Musculoskeletal: Circulation, motion, and sensation intact. Range of motion: intact in all extremities. Historical: - PMHx: 15:33 Hypertension; CAD; Diabetes - NIDDM; Cancer; gs - Immunization history:: Adult Immunizations up to date. - Social history:: Smoking status: Patient uses tobacco products, unknown amount. - Ebola Screening: : No symptoms or risks identified at this time. Screenin:46 Abuse screen: Denies threats or abuse. Denies injuries from another. Nutritional bp screening: No deficits noted. Tuberculosis screening: No symptoms or risk factors identified. Fall Risk None identified. Assessment: 12:46 General: SEE TRIAGE NOTE. Neuro: No deficits noted. bp 14:46 Reassessment: PT SEEN BY PROVIDER, OTHER ORDERS PENDING. bp Vital Signs: 12:43 BP 135 / 74; Pulse 100; Resp 24; Temp 97.5; Pulse Ox 100% on 4 lpm NC; Weight 54.43 kg; bp 14:46 BP 133 / 49; Pulse 88; Resp 18; Pulse Ox 100% ; bp 15:33 BP 131 / 65; Pulse 86; Resp 21; Temp 97.8(O); Pulse Ox 100% 4 lpm ; rv ED Course: 12:36 Patient arrived in ED. bp 12:36 Poncho Velásquez MD is Attending Physician. gs 12:43 Arm band placed on. bp 12:44 Triage completed. bp 12:46 Patient has correct armband on for positive identification. Bed in low position. Call bp light in reach. Side rails up X2. 13:51 Assisted with urinal. jp3 14:46 Ricardo Philip, RN is Primary Nurse. bp 15:17 Ranulfo Ortiz MD is Referral Physician. gs 15:34 No provider procedures requiring assistance completed. Patient did not have IV access rv during this emergency room visit. Administered Medications: No medications were administered Outcome: 15:17 Discharge ordered by . gs 15:34 Discharged to home via wheelchair, with family. rv 15:34 Condition: good 15:34 Discharge instructions given to patient, family, Instructed on discharge instructions, follow up and referral plans. medication usage, Demonstrated understanding of instructions, follow-up care, medications, Prescriptions given X 2. 15:34 Patient left the ED. rv Signatures: Poncho Velásquez MD MD Ricardo Philip, RN RN Johny Malik RN RN rv Laurent Cosby jp3
[2018-12-19 15:40] VITALS: O2SAT 100
[2018-12-19 15:43] VITALS: BP 131/65; TEMP 97.8
== END 2018-12-19 15:34 | disposition home or self-care (01) ==
LOC: ER 12:34
DX: J41.1 Mucopurulent chronic bronchitis (principal); I10 Essential (primary) hypertension; Z72.0 Tobacco use
CPT/HCPCS: 99283

== ENCOUNTER 2019-01-07 22:00 | Inpatient (IN) | payer OTHER ==
--- OUTSIDE RECORDS SUMMARY | 2019-01-07 22:03 | XMS REPORT ---
:1945 [facility] Address [address] [place] [address] Dr. Gardner [address] [place] [address] Care Team Providers Name Role Phone Unavailable Unavailable Unavailable Problems This patient has no known problems. Allergies, Adverse Reactions, Alerts This patient has no known allergies or adverse reactions. Medications This patient has no known medications.
[2019-01-07] MEDS ORDERED: LEVALBUTEROL 1.25 MG/3 ML NEB ONE (22:09)
[2019-01-07] MEDS ORDERED: METHYLPREDNISOLONE 125 MG INJ ONE (22:19)
[2019-01-07 23:53] LABS: Basophils % 0.7 % (0-1.3); Hematocrit 33.8 % (39.6-49.0); RBC Red Blood Cell Count 4.08 M/uL (4.33-5.43)
[2019-01-07 23:56] LABS: BUN Blood Urea Nitrogen 20 mg/dL (7-18); Bicarbonate 37 mmol/L (21-32); Glucose Level 117 mg/dL (74-106); NT PRO-BNP 4731 pg/mL (<125); Potassium 3.5 mmol/L (3.5-5.1); Sodium Level 143 mmol/L (136-145); Troponin (Emerg Dept Use Only) < 0.02 ng/mL (0.0-0.045)
[2019-01-08] MEDS ORDERED: ACETAMINOPHEN 500 MG TAB PO PRN (00:46)
[2019-01-08] MEDS ORDERED: ONDANSETRON 4 MG/2 ML VIAL IV PRN (00:46)
--- NOTE | 2019-01-08 00:46 | ER ---
Nurse's Notes [facility] Name: Richie Paulino Age: 73 yrs Sex: Male : 1945 Arrival Date: 01/07/2019 Time: 22:03 Bed 2 Private MD: Diagnosis: Unspecified combined systolic (congestive) and diastolic (congestive) heart failure;Dyspnea, unspecified Presentation: 01/07 22:00 Presenting complaint: EMS states: patient complaint of difficulty of breathing and rr5 phlegm started last May. he is oxygen at home via nasal cannula at 3 liters/min. oxygen saturation went down to 89% after oxygen support it bumped up to 99%. 22:00 Transition of care: patient was not received from another setting of care. Onset of rr5 symptoms was May 2018. Risk Assessment: Do you want to hurt yourself or someone else? Patient reports no desire to harm self or others. Initial Sepsis Screen: Does the patient meet any 2 criteria? RR > 20 per min. No. Patient's initial sepsis screen is negative. Does the patient have a suspected source of infection? Yes: Productive cough/pneumonia. Care prior to arrival: None. 22:00 Method Of Arrival: EMS: [facility] rr5 22:00 Acuity: RICHARD 3 rr5 Triage Assessment: 22:00 General: Appears in no apparent distress. uncomfortable, Behavior is calm, cooperative, rr5 appropriate for age. 22:00 Respiratory: Onset: The symptoms/episode began/occurred May 2018, the patient has rr5 mild shortness of breath. Historical: - Allergies: 22:15 Penicillins; rr5 22:15 Amoxicillin; rr5 - Home Meds: 22:15 metoprolol succinate 50 mg oral Tb24 [Active]; pantoprazole oral oral [Active]; rr5 Tramadol Oral [Active]; clopidogrel 75 mg oral tab 1 tab once daily [Active]; Hydralazine Oral [Active]; fenofibrate oral oral [Active]; senosides [Active]; Folic Acid Oral [Active]; Aspirin Oral [Active]; Isosorbide Mononitrate Oral [Active]; Fish Oil oral oral [Active]; Furosemide Oral [Active]; Metformin Oral [Active]; biotin oral oral [Active]; pravastatin oral oral [Active]; nitroglycerin 0.4 mg SL subl [Active]; - PMHx: 22:15 CAD; Cancer; throat; Diabetes - NIDDM; Hypertension; CHF; rr5 22:15 COPD; rr5 - Immunization history:: Adult Immunizations up to date. - Social history:: Smoking status: Patient uses tobacco products, 2 sticks. - Ebola Screening: : Patient negative for fever greater than or equal to 101.5 degrees Fahrenheit, and additional compatible Ebola Virus Disease symptoms Patient denies exposure to infectious person Patient denies travel to an Ebola-affected area in the 21 days before illness onset. - Family history:: not pertinent. - Hospitalizations: : No recent hospitalization is reported. Screenin:23 Abuse screen: Denies threats or abuse. Denies injuries from another. Nutritional rr5 screening: No deficits noted. Tuberculosis screening: No symptoms or risk factors identified. Fall Risk IV access (20 points). Total Ng Fall Scale indicates No Risk (0-24 pts). Assessment: 22:00 General: Appears in no apparent distress. uncomfortable, Behavior is calm, cooperative, rr5 appropriate for age. 22:00 Pain: Denies pain. Neuro: Level of Consciousness is awake, alert, obeys commands, rr5 Oriented to person, place, time, situation, Appropriate for age. Cardiovascular: Capillary refill < 3 seconds Rhythm is regular. Respiratory: Reports shortness of breath cough that is Airway is patent Respiratory effort is even, unlabored, Respiratory pattern is regular, symmetrical, tachypnea Sputum is thick, brown Breath sounds are diminished. GI: No signs and/or symptoms were reported involving the gastrointestinal system. : No signs and/or symptoms were reported regarding the genitourinary system. EENT: No signs and/or symptoms were reported regarding the EENT system. Reports difficulty of speaking have a history of throat cancer.. Derm: Skin is intact, Skin temperature is warm. Musculoskeletal: Capillary refill < 3 seconds. 23:00 Reassessment: Patient appears in no apparent distress at this time. Patient and/or rr5 family updated on plan of care and expected duration. Pain level reassessed. Patient is alert, oriented x 3, equal unlabored respirations, skin warm/dry/pink. awaiting for result. 23:00 Cardiovascular: Edema is 1+ to left foot and right foot. rr5 01/08 00:00 Reassessment: Patient appears in no apparent distress at this time. Patient is alert, rr5 oriented x 3, equal unlabored respirations, skin warm/dry/pink. eyes closed breathing spontaneously at room air. 01:00 Reassessment: Patient appears in no apparent distress at this time. Patient is alert, rr5 oriented x 3, equal unlabored respirations, skin warm/dry/pink. no complaints made awaiting for room assignment Patient states feeling better. Patient states symptoms have improved. 01:58 Reassessment: Patient appears in no apparent distress at this time. no complaints made. rr5 agreed for the admission. Vital Signs: 01/07 22:00 BP 131 / 96; Pulse 81; Resp 34; Temp 98.9; Pulse Ox 96% on R/A; Weight 54.43 kg; Height rr5 5 ft. 5 in. (165.10 cm); Pain 0/10; 23:27 BP 151 / 71; Pulse 83; Resp 30; Pulse Ox 95% ; lt1 01/08 00:30 BP 151 / 67; Pulse 80; Resp 29; Pulse Ox 95% ; rr5 01:26 BP 145 / 62; Pulse 92; Resp 31; Temp 98.7; Pulse Ox 94% ; rr5 01:56 BP 126 / 45; Pulse 88; Resp 30; Pulse Ox 93% on R/A; rr5 01:56 Pulse Ox 3 lpm NC; rr5 02:13 Pulse Ox 96% on 3 lpm NC; rr5 01/07 22:00 Body Mass Index 19.97 (54.43 kg, 165.10 cm) rr5 ED Course: 01/07 22:03 Patient arrived in ED. rn 22:03 Warren Grubbs MD is Attending Physician. rn 22:03 Daljit Cates, ORA is Primary Nurse. rr5 22:08 Triage completed. rr5 22:15 Arm band placed on. rr5 22:15 Patient has correct armband on for positive identification. Placed in gown. Bed in low rr5 position. Call light in reach. Side rails up X2. potline monitor on. Pulse ox on. NIBP on. 22:30 Missed attempt(s): 22 gauge in right wrist. lt1 22:35 Inserted saline lock: 20 gauge in right upper arm, using aseptic technique. Blood rr5 collected. 22:52 Flu Sent. lt1 23:33 Second set of blood cultures drawn by lab staff. rr5 01/08 00:43 Kiran Alexander MD is Hospitalizing Provider. rn 01:48 No provider procedures requiring assistance completed. Patient admitted, IV remains in rr5 place. intact, No redness/swelling at site. Administered Medications: 01/07 22:15 Drug: Xopenex (3) 1.25 mg Route: Inhalation; tl1 22:35 Drug: SOLU-Medrol 125 mg Route: IVP; Site: right upper arm; rr5 23:35 Follow up: Response: No adverse reaction rr5 Outcome: 01/08 00:44 Decision to Hospitalize by Provider. rn 02:12 Admitted to Med/surg accompanied by nurse, accompanied by tech, via stretcher, room rr5 212, with oxygen, with chart, Report called to paolo 02:12 Condition: stable 02:12 Instructed on the need for admit. 02:16 Patient left the ED. rr5 Signatures: Warren Grubbs MD MD rn Lasagna, Tonya RN RN tl1 Daljit Cates RN RN rr5 Liset Robledo lt1 Corrections: (The following items were deleted from the chart) 01:27 01/07 22:00 BP 131 / 96; Pulse 81bpm; Resp 20bpm; Pulse Ox 96% RA; Temp 98.9F; 54.43 rr5 kg; Height 5 ft. 5 in.; BMI: 19.9; Pain 0/10; rr5 01/08 01:27 01/07 22:00 Respiratory: Reports shortness of breath cough that is Airway is patent rr5 Respiratory effort is even, unlabored, Respiratory pattern is regular, symmetrical, Sputum is thick, brown Breath sounds are diminished rr5 01/08 06:41 01/07 22:00 Initial Sepsis Screen: Does the patient meet any 2 criteria? No. Patient's rr5 initial sepsis screen is negative. Does the patient have a suspected source of infection? Yes: Productive cough/pneumonia rr5
--- NOTE | 2019-01-08 00:47 | EDPHYS ---
Physician Documentation [facility] Name: Richie Paulino Age: 73 yrs Sex: Male : 1945 Arrival Date: 01/07/2019 Time: 22:03 Bed 2 Private MD: ED Physician Warren Grubbs HPI: 01/07 23:03 This 73 yrs old Male presents to ER via EMS with complaints of Breathing rn Difficulty. 23:03 The patient has shortness of breath at rest, with light activity. Onset: The rn symptoms/episode began/occurred 3 day(s) ago. Duration: The symptoms are continuous. The patient's shortness of breath is aggravated by exertion, light activity. Severity of symptoms: At their worst the symptoms were mild in the emergency department the symptoms are unchanged. The patient has experienced similar episodes in the past. The patient has not recently seen a physician. Reports not taking medication regularly since may, due to trouble swallowing, + productive cough over last few days, + chills, no fever. On oxygen at home 4-6L as needed. . Historical: - Allergies: 22:15 Penicillins; rr5 22:15 Amoxicillin; rr5 - Home Meds: 22:15 metoprolol succinate 50 mg oral Tb24 [Active]; pantoprazole oral oral [Active]; rr5 Tramadol Oral [Active]; clopidogrel 75 mg oral tab 1 tab once daily [Active]; Hydralazine Oral [Active]; fenofibrate oral oral [Active]; senosides [Active]; Folic Acid Oral [Active]; Aspirin Oral [Active]; Isosorbide Mononitrate Oral [Active]; Fish Oil oral oral [Active]; Furosemide Oral [Active]; Metformin Oral [Active]; biotin oral oral [Active]; pravastatin oral oral [Active]; nitroglycerin 0.4 mg SL subl [Active]; - PMHx: 22:15 CAD; Cancer; throat; Diabetes - NIDDM; Hypertension; CHF; rr5 22:15 COPD; rr5 - Immunization history:: Adult Immunizations up to date. - Social history:: Smoking status: Patient uses tobacco products, 2 sticks. - Ebola Screening: : Patient negative for fever greater than or equal to 101.5 degrees Fahrenheit, and additional compatible Ebola Virus Disease symptoms Patient denies exposure to infectious person Patient denies travel to an Ebola-affected area in the 21 days before illness onset. - Family history:: not pertinent. - Hospitalizations: : No recent hospitalization is reported. ROS: 23:03 Constitutional: Negative for fever, and weight loss, Eyes: Negative for injury, pain, rn redness, and discharge, Neck: Negative for injury, pain, and swelling, Cardiovascular: Negative for chest pain, palpitations, and edema, Respiratory: + sob and cough Abdomen/GI: Negative for abdominal pain, nausea, vomiting, diarrhea, and constipation, MS/Extremity: Negative for injury and deformity, Skin: Negative for injury, rash, and discoloration, Neuro: Negative for headache, weakness, numbness, tingling, and seizure. Exam: 23:03 Constitutional: Thin male, no acute distress Head/Face: Normocephalic, atraumatic. internet designer: dry MM, no stridor or swelling Cardiovascular: Regular rate and rhythm. No pulse deficits. Respiratory: + diminished at bases, but no retractions, able to speak full sentences, no focal wheezing Abdomen/GI: soft, non-tender MS/ Extremity: Pulses equal, no cyanosis. 1+ non-pitting edema bilateral lower ext Neuro: Awake and alert, GCS 15 Vital Signs: 22:00 BP 131 / 96; Pulse 81; Resp 34; Temp 98.9; Pulse Ox 96% on R/A; Weight 54.43 kg; Height rr5 5 ft. 5 in. (165.10 cm); Pain 0/10; 23:27 BP 151 / 71; Pulse 83; Resp 30; Pulse Ox 95% ; lt1 01/08 00:30 BP 151 / 67; Pulse 80; Resp 29; Pulse Ox 95% ; rr5 01:26 BP 145 / 62; Pulse 92; Resp 31; Temp 98.7; Pulse Ox 94% ; rr5 01:56 BP 126 / 45; Pulse 88; Resp 30; Pulse Ox 93% on R/A; rr5 01:56 Pulse Ox 3 lpm NC; rr5 02:13 Pulse Ox 96% on 3 lpm NC; rr5 01/07 22:00 Body Mass Index 19.97 (54.43 kg, 165.10 cm) rr5 MDM: 01/07 22:03 Patient medically screened. rn 01/08 00:42 Differential diagnosis: CHF exacerbation, Chronic Obstructive Pulmonary Disease rn pneumonia, Pneumothorax pulmonary edema. Data reviewed: vital signs, nurses notes, lab test result(s), EKG, radiologic studies, plain films, and as a result, I will admit patient. Counseling: I had a detailed discussion with the patient and/or guardian regarding: the historical points, exam findings, and any diagnostic results supporting the discharge/admit diagnosis, lab results, radiology results, the need for further work-up and treatment in the hospital. Response to treatment: the patient's symptoms have mildly improved after treatment, and as a result, I will admit patient. Admission orders: after a detailed discussion of the patient's condition and case, the admit orders are written by me. ED course: Will admit patient given increased dyspnea and tachypnea. + edema with CHF exacerbation, patient non-compliant with medication. No pneumothorax. . 01/07 22:04 Order name: Blood Culture Adult (2) 01/07 22:04 Order name: BMP 01/07 22:04 Order name: CBC with Diff 01/07 22:04 Order name: NT PRO-BNP 01/07 22:04 Order name: Troponin (emerg Dept Use Only) 01/07 22:05 Order name: Flu 01/07 22:04 Order name: XRAY CXR (1 view) 01/07 23:55 Order name: CBC with Automated Diff; Complete Time: 00:33 EDOR 01/07 23:56 Order name: Basic Metabolic Panel; Complete Time: 00:33 EDOR 01/07 23:56 Order name: Troponin (Emerg Dept Use Only); Complete Time: 00:33 EDOR 01/07 23:56 Order name: NT PRO-BNP; Complete Time: 00:33 EDOR 01/08 01:17 Order name: Influenza Screen (A EDOR 01/07 22:04 Order name: EKG; Complete Time: 22:06 01/07 22:04 Order name: Cardiac monitoring; Complete Time: 22:28 01/07 22:04 Order name: EKG - Nurse/Tech; Complete Time: 22:28 01/07 22:04 Order name: IV Saline Lock; Complete Time: 22:28 01/07 22:04 Order name: Labs collected and sent; Complete Time: 23: 01/07 22:04 Order name: O2 Per Protocol; Complete Time: 22:28 rn 01/07 22:04 Order name: O2 Sat Monitoring; Complete Time: 22:28 rn Administered Medications: 01/07 22:15 Drug: Xopenex (3) 1.25 mg Route: Inhalation; tl1 22:35 Drug: SOLU-Medrol 125 mg Route: IVP; Site: right upper arm; rr5 23:35 Follow up: Response: No adverse reaction rr5 Disposition: 01/08/19 00:44 Hospitalization ordered by Kiran Alexander for Observation. Preliminary diagnosis are Unspecified combined systolic (congestive) and diastolic (congestive) heart failure, Dyspnea, unspecified. - Bed requested for Telemetry/MedSurg (observation). - Status is Observation. rr5 - Condition is Stable. - Problem is an acute exacerbation. - Symptoms are unchanged. UTI on Admission? No Signatures: Dispatcher [employer] EDMS Carlita Hannon RN RN Warren Grubbs MD MD rn Lasagna, Tonya, RN RN tl1 Daljit Cates RN RN rr5 Corrections: (The following items were deleted from the chart) 01/08 01:34 00:44 Hospitalization Ordered by Kiran Alexander MD for Observation. Preliminary mw diagnosis is Unspecified combined systolic (congestive) and diastolic (congestive) heart failure; Dyspnea, unspecified. Bed requested for Telemetry/MedSurg (observation). Status is Observation. Condition is Stable. Problem is an acute exacerbation. Symptoms are unchanged. UTI on Admission? No. rn 02:16 01:34 01/08/2019 00:44 Hospitalization Ordered by Kiran Alexander MD for Observation. rr5 Preliminary diagnosis is Unspecified combined systolic (congestive) and diastolic (congestive) heart failure; Dyspnea, unspecified. Bed requested for Telemetry/MedSurg (observation). Status is Observation. Condition is Stable. Problem is an acute exacerbation. Symptoms are unchanged. UTI on Admission? No. mw
[2019-01-08] MEDS: CLINDAMYCIN INJ 600 MG in NA CHLORIDE 0.9% 50 ML IV SCH ×3 (01:00→17:16)
[2019-01-08] MEDS: NA CHLORIDE 0.9% 1,000 ML IV SCH ×2 (02:33→14:43)
[2019-01-08] MEDS ORDERED: CLINDAMYCIN 600MG/D5W 0 MG/0 ML BAG IV ONE (03:22)
[2019-01-08] MEDS ORDERED: CLINDAMYCIN IV 150 MG/ML (6 mL) VIAL ONE (03:28)
[2019-01-08] MEDS ORDERED: NA CHLORIDE 0.9% 50 ML ONE (03:30)
--- NOTE | 2019-01-08 08:59 | P.HP ---
Certification for Inpatient Patient admitted to: Inpatient With expected LOS: >2 Midnights Patient will require the following post-hospital care: None Practitioner: I am a practitioner with admitting privileges, knowledge of patient current condition, hospital course, and medical plan of care. Services: Services provided to patient in accordance with Admission requirements found in Title 42 Section 412.3 of the Code of Federal Regulations Patient History Date of Service: 01/08/19 Reason for admission: Dysphagia History of Present Illness: Patient is a 73-year-old gentleman who came to the hospital with difficulty swallowing. Patient had a modified barium swallow study done a few weeks ago which revealed that he would benefit from a PEG tube. However, the family did not want that at that time. He was sent home on a honey thick pureed diet. He has had difficulty with swallowing. He came back to the hospital because he has continued to lose weight. He will need to be readmitted for further evaluation. He was scheduled to get a PEG tube on the 06 of January. However, because of logistic reasons it was not able to get completed. He came to the ER because he has remained cachectic. He will need further evaluation at this time. Allergies erythromycin base [Erythromycin Base] Allergy (Verified 01/08/19 04:06) Rash Penicillins Allergy (Verified 01/08/19 04:06) Anaphylaxis Azithromycin Allergy (Uncoded 02/03/18 10:50) Unknown Home Medications: ALPRAZolam [Xanax] 1 mg PO BID 01/08/19 Allopurinol 300 mg PO DAILY 01/08/19 Arformoterol Tartrate [Brovana] 15 mcg IH BID 01/08/19 Clopidogrel Bisulfate [Plavix] 75 mg PO DAILY 01/08/19 Fenofibrate [Tricor] 145 mg PO DAILY 01/08/19 Furosemide 40 mg PO DAILY 01/08/19 Hydralazine HCl [Apresoline] 100 mg PO TID 01/08/19 Isosorbide Cataño (Bid) [Ismo 10 mg Tab] 10 mg PO BID 01/08/19 Metformin HCl 1,000 mg PO BID 01/08/19 Metoprolol Succinate 50 mg PO DAILY 01/08/19 Pantoprazole Sodium [Protonix] 40 mg PO DAILY 01/08/19 Pravastatin Sodium [Pravachol] 40 mg PO DAILY 01/08/19 Quinine Sulfate [Qualaquin] 324 mg PO Q8H 01/08/19 Ropinirole HCl [Requip] 0.5 mg PO BEDTIME 01/08/19 Temazepam 30 mg PO BEDTIME PRN 01/08/19 Tramadol HCl [Ultram] 50 mg PO BID PRN 01/08/19 Valsartan/Hydrochlorothiazide [Diovan Hct 320-25 mg Tablet] 1 each PO DAILY - Past Medical/Surgical History Has patient received pneumonia vaccine in the past: Yes Diabetic: Yes -: restless leg -: CAD -: TN -: PVD -: NIDDM -: high cholesterol -: gout -: copd -: hypertension -: asbestosis -: CHF -: throat cancer? -: Coronary artery bypass grafting -: left elbow surgery -: hernia repair - Family History Mother Medical History: Heart disease, Hypertension, Diabetes, Stroke - Social History Smoking Status: Light Tobacco smoker (1-9 cigarettes/day) Alcohol use: No CD- Drugs: No Caffeine use: No Place of Residence: Home Review of Systems 10-point ROS is otherwise unremarkable Physical Examination - Vital Signs Temperature: 98.1 F Blood Pressure: 154/69 Pulse: 77 Respirations: 16 Pulse Ox (%): 99 - Physical Exam General: Alert, In no apparent distress, Oriented x3 HEENT: Atraumatic, PERRLA, Mucous membr. moist/pink, EOMI, Sclerae nonicteric Neck: Supple, 2+ carotid pulse no bruit, No LAD, Without JVD or thyroid abnormality Respiratory: Clear to auscultation bilaterally, Normal air movement Cardiovascular: Regular rate/rhythm, Normal S1 S2, No murmurs Gastrointestinal: Normal bowel sounds, Soft and benign, Non-distended, No tenderness Musculoskeletal: No clubbing, No swelling, No tenderness Integumentary: No rashes Neurological: Normal speech, Sensation intact, Cranial nerves 3-12 intact, Abnormal gait, Abnormal strength Lymphatics: No axilla or inguinal lymphadenopathy - Studies Laboratory Data (last 24 hrs) 01/07/19 22:35: WBC 6.2, Hgb 10.8 L, Hct 33.8 L, Plt Count 283 01/07/19 22:35: Sodium 143, Potassium 3.5, BUN 20 H, Creatinine 0.76, Glucose 117 H Microbiology Data (last 24 hrs): 01/07/19 22:00 Nasopharnyx Influenza Type A Antigen Screen - Final 01/07/19 22:00 Nasopharnyx Influenza Type B Antigen Screen - Final Assessment & Plan - Problems (Diagnosis) (1) Dysphagia Current Visit: Yes Status: Acute (2) Weight loss Current Visit: Yes Status: Acute (3) Acute exacerbation of CHF (congestive heart failure) Onset Date: 12/24/17 Current Visit: No Status: Acute (4) COPD exacerbation Current Visit: No Status: Acute (5) Diabetes mellitus type 2 in nonobese Current Visit: No Status: Acute (6) Hypertensive emergency Onset Date: 12/24/17 Current Visit: No Status: Acute (7) History of laryngeal cancer Current Visit: No Status: Chronic (8) Malignant hypertension Current Visit: No Status: Resolved - Plan Plan: 1. IV hydration 2. GI consultation for PEG tube placement 3. Monitor labs closely 4. NPO at this time except for medicines 5. GI and DVT prophylaxis Discharge Plan: Home Plan to discharge in: Greater than 2 days - Advance Directives Does patient have a Living Will: Yes Does patient have a Durable POA for Healthcare: Yes - Code Status/Comfort Care Code Status Assessed: Yes Code Status: Full Code Critical Care: No Time Spent Managing PTS Care (In Minutes): 45
[2019-01-08] MEDS: HOME MED 1 EA UNK (Metformin Hcl [Metformin Hcl] 1,000 MG) PO SCH ×2 (09:00→21:00)
[2019-01-08] MEDS: ALPRAZOLAM 1 MG TABLET PO SCH ×2 (09:00→21:00)
[2019-01-08] MEDS: ALLOPURINOL 300 MG TAB PO SCH (09:00)
[2019-01-08] MEDS ORDERED: HOME MED 1 EA UNK (Pravastatin Sodium [Pravachol] 40 MG) PO SCH (09:00)
[2019-01-08] MEDS: HOME MED 1 EA UNK (Hydralazine Hcl [Apresoline] 100 MG) PO SCH ×3 (09:00→21:00)
[2019-01-08] MEDS: METOPROLOL XL 50 MG TAB PO SCH (09:00)
[2019-01-08] MEDS: FUROSEMIDE 40 MG TABLET PO SCH (09:00)
[2019-01-08] MEDS ORDERED: PANTOPRAZOLE 40MG TABLET PO SCH (09:00)
[2019-01-08] MEDS: CLOPIDOGREL 75 MG TABLET PO SCH (09:00)
[2019-01-08] MEDS: ARFORMOTEROL TARTRATE 15 MCG/2 ML VIAL.NEB IH SCH ×2 (09:27→20:00)
[2019-01-08 09:46] LABS: Urine Appearance CLEAR; Urine Blood NEGATIVE (NEG); Urine Color DK YELLOW; Urine Glucose NEGATIVE (NEG); Urine Protein 1+ (NEG); Urine Specific Gravity 1.025 (1.005-1.030)
[2019-01-08 09:59] LABS: Urine Bilirubin 1+ (NEG); Urine Microscopic Reflex ORDER UMIC
[2019-01-08 10:07] LABS: Urine Bacteria NONE SEEN /HPF (NONE SEEN); Urine Culture Reflex Order NOT NEEDED; Urine Mucus HEAVY /HPF (NONE SEEN)
[2019-01-08] MEDS: ISOSORBIDE MONO 10 MG TAB PO SCH ×2 (10:13→21:00)
[2019-01-08] MEDS: FENOFIBRATE 160 MG TAB PO SCH (10:13)
[2019-01-08] MEDS ORDERED: HYDRALAZINE HCL 20 MG/ML VIAL IV PRN (10:38)
[2019-01-08] MEDS ORDERED: SODIUM CHLORIDE 0.9% 10ML INJ IV PRN (10:40)
--- NOTE | 2019-01-08 11:34 | RAD REPORT ---
EXAM DESCRIPTION: RAD - Chest Single View - 01/07/2019 10:48 pm CLINICAL HISTORY: Cough;COPD;Dyspnea Chest pain. COMPARISON: Chest Single View dated 12/13/2018; Chest Single View dated 09/04/2018; Chest Single View dated 12/28/2017; Chest Single View dated 12/23/2017 FINDINGS: Portable technique limits examination quality. Emphysematous changes are present throughout the lungs. Increased lung markings are seen which may in dicate bronchitis or reactive airway disease. The heart is mildly prominent in size. No displaced fra ctures.Aortic atherosclerosis.
[2019-01-08] MEDS: ROPINIROLE HCL 1 MG TAB PO SCH (21:00)
[2019-01-08] MEDS: FUROSEMIDE 40 MG/4 ML VIAL IV SCH (21:12)
[2019-01-08] MEDS: PANTOPRAZOLE 40 MG INJ IVP SCH (21:12)
[2019-01-08] MEDS ORDERED: LORazepam 2 MG/ML VIAL IV ONE (22:04)
[2019-01-09] MEDS: CLINDAMYCIN INJ 600 MG in NA CHLORIDE 0.9% 50 ML IV SCH ×3 (00:50→18:18)
[2019-01-09] MEDS ORDERED: PANTOPRAZOLE 40MG TABLET PO SCH (07:30)
[2019-01-09] MEDS: ARFORMOTEROL TARTRATE 15 MCG/2 ML VIAL.NEB IH SCH ×2 (07:33→20:30)
[2019-01-09] MEDS: ISOSORBIDE MONO 10 MG TAB PO SCH ×2 (08:14→21:00)
[2019-01-09] MEDS: METFORMIN HCL 500 MG TAB PO SCH ×2 (08:14→17:23)
[2019-01-09] MEDS: HYDRALAZINE HCL 25 MG TABLET PO SCH ×3 (08:14→21:00)
[2019-01-09] MEDS: FUROSEMIDE 40 MG TABLET PO SCH (08:14)
[2019-01-09] MEDS: ALPRAZOLAM 1 MG TABLET PO SCH ×2 (08:16→21:00)
[2019-01-09] MEDS: CLOPIDOGREL 75 MG TABLET PO SCH (08:16)
[2019-01-09] MEDS: FENOFIBRATE 160 MG TAB PO SCH (08:16)
[2019-01-09] MEDS: METOPROLOL XL 50 MG TAB PO SCH (08:16)
[2019-01-09] MEDS: ALLOPURINOL 300 MG TAB PO SCH (08:17)
[2019-01-09] MEDS: PANTOPRAZOLE 40 MG INJ IVP SCH ×2 (09:23→21:49)
[2019-01-09] MEDS: FUROSEMIDE 40 MG/4 ML VIAL IV SCH ×2 (09:23→21:49)
[2019-01-09] MEDS: NA CHLORIDE 0.9% 1,000 ML IV SCH ×2 (09:24→17:00)
--- NOTE | 2019-01-09 10:47 | RAD REPORT ---
EXAM DESCRIPTION: RAD - Barium Swallow Modified - 01/09/2019 10:37 am CLINICAL HISTORY: dysphagia COMPARISON: Barium Swallow Modified dated 12/14/2018 TECHNIQUE: The patient was given liquid, semi-solid and solid forms of barium. Lateral view fluorosc opic imaging was performed in conjunction with speech pathology service. FINDINGS: Aspiration : delayed , ineffective cough , no cough, with thin nectar, honey pharyngeal residue: vallecular, pyriform, posterior wall other : severe esophageal stasis /retention and back flow in upper esophagus Total fluoroscopy time: 2 minutes and 34 seconds
--- NOTE | 2019-01-09 11:37 | EKG ---
Test Date: 2019-01-07 Test Time: 22:25:42 Drier Operator Helper: RR MEASUREMENT RESULTS: Intervals: Rate: 89 IA: 120 QRSD: 100 QT: 394 QTc: 479 [place]: P: 92 IA: 120 QRS: 88 T: 101 INTERPRETIVE STATEMENTS: Normal sinus rhythm Normal ECG Compared to ECG 12/13/2018 22:15:54 Atrial premature complex(es) no longer present Electronically Signed On 01-09-19 11:31:37 CDT by Aleksandr Dutton
--- NOTE | 2019-01-09 12:12 | RAD REPORT ---
EXAM DESCRIPTION: RAD - Chest Single View - 01/09/2019 12:03 pm CLINICAL HISTORY: possible aspiration Chest pain. COMPARISON: Chest Single View dated 01/07/2019; Chest Single View dated 12/13/2018; Chest Single View dated 09/04/2018; Chest Single View dated 12/28/2017 FINDINGS: Portable technique limits examination quality. Emphysematous changes are present throughout the lungs. No focal infiltrate detected. The heart is no rmal in size. No displaced fractures. IMPRESSION: COPD without acute process seen.
--- NOTE | 2019-01-09 16:32 | P.PN ---
Subjective Date of Service: 01/09/19 Chief Complaint: Dysphagia Patient seen and examined at bedside with RN. Chart reviewed. Pending GI consultation at this time. Currently patient failed his modified barium swallow study. If NPO at this time. Review of Systems 10-point ROS is otherwise unremarkable Physical Examination - Vital Signs Temperature: 97.8 F Blood Pressure: 132/60 Pulse: 84 Respirations: 18 Pulse Ox (%): 90 - Physical Exam General: In no apparent distress HEENT: Atraumatic, PERRLA, EOMI Neck: Supple, JVD not distended Respiratory: Normal air movement Cardiovascular: Regular rate/rhythm, Normal S1 S2 Gastrointestinal: Normal bowel sounds, No tenderness Musculoskeletal: No tenderness Integumentary: No rashes Neurological: Normal tone, Normal affect Lymphatics: No axilla or inguinal lymphadenopathy - Studies Medications List Reviewed: Yes Assessment And Plan - Current Problems (Diagnosis) (1) Dysphagia Current Visit: Yes Status: Acute Plan: Dysphagia most likely secondary to history of laryngeal cancer -family in the past denied having PEG tube placement. -modified barium swallow at this time. Positive for aspiration. -will have detailed discussion with the family tomorrow regarding patient's PEG tube placement versus no PEG tube placement will make a decision in next 24-48 hr. Will continue with IV fluids in the meantime. And IV clinimix needed for nutrition. Qualifiers: Dysphagia type: unspecified Qualified Code(s): R13.10 - Dysphagia, unspecified (2) Weight loss Current Visit: Yes Status: Acute (3) Diabetes mellitus type 2 in nonobese Current Visit: No Status: Chronic (4) COPD (chronic obstructive pulmonary disease) Current Visit: No Status: Chronic Qualifiers: COPD type: COPD with acute exacerbation Qualified Code(s): J44.1 - Chronic obstructive pulmonary disease with (acute) exacerbation (5) History of laryngeal cancer Current Visit: No Status: Chronic - Plan Pending clinical improvement at this time Discharge Plan: Home Plan to discharge in: Greater than 2 days - Code Status/Comfort Care Code Status Assessed: Yes Critical Care: No
[2019-01-09] MEDS: ATORVASTATIN 10 MG TAB PO SCH (21:00)
[2019-01-09] MEDS: ROPINIROLE HCL 1 MG TAB PO SCH (21:00)
[2019-01-10] MEDS: CLINDAMYCIN INJ 600 MG in NA CHLORIDE 0.9% 50 ML IV SCH ×3 (00:20→16:50)
[2019-01-10] MEDS ORDERED: LORazepam 2 MG/ML VIAL IV PRN (00:51)
[2019-01-10] MEDS: HYDRALAZINE HCL 25 MG TABLET PO SCH ×3 (07:51→20:50)
[2019-01-10] MEDS: CLOPIDOGREL 75 MG TABLET PO SCH (07:51)
[2019-01-10] MEDS: METFORMIN HCL 500 MG TAB PO SCH ×2 (07:51→15:45)
[2019-01-10] MEDS: FENOFIBRATE 160 MG TAB PO SCH (07:51)
[2019-01-10] MEDS: ALPRAZOLAM 1 MG TABLET PO SCH ×2 (07:51→20:49)
[2019-01-10] MEDS: ISOSORBIDE MONO 10 MG TAB PO SCH ×2 (07:51→20:50)
[2019-01-10] MEDS: METOPROLOL XL 50 MG TAB PO SCH (07:51)
[2019-01-10] MEDS: ALLOPURINOL 300 MG TAB PO SCH (07:52)
[2019-01-10] MEDS: ARFORMOTEROL TARTRATE 15 MCG/2 ML VIAL.NEB IH SCH ×2 (07:57→20:25)
[2019-01-10] MEDS: NA CHLORIDE 0.9% 1,000 ML IV SCH ×2 (08:21→20:54)
[2019-01-10] MEDS: FUROSEMIDE 40 MG/4 ML VIAL IV SCH ×2 (08:21→20:54)
[2019-01-10] MEDS: PANTOPRAZOLE 40 MG INJ IVP SCH ×2 (08:21→20:54)
[2019-01-10] MEDS ORDERED: Levofloxacin500mg IV 500 MG/100 ML BAG IV ONE (10:00)
--- NOTE | 2019-01-10 13:52 | P.PN ---
Subjective Date of Service: 01/10/19 Chief Complaint: Dysphagia Patient seen and examined at bedside with RN. Chart reviewed. Pending GI consultation at this time. Currently patient failed his modified barium swallow study. Scheduled for PEG tube placement today Review of Systems 10-point ROS is otherwise unremarkable Physical Examination - Vital Signs Temperature: 98.1 F Blood Pressure: 122/53 Pulse: 84 Respirations: 18 Pulse Ox (%): 95 - Physical Exam General: Alert, In no apparent distress HEENT: Atraumatic, PERRLA, EOMI Neck: Supple, JVD not distended Respiratory: Clear to auscultation bilaterally, Normal air movement Cardiovascular: Regular rate/rhythm, Normal S1 S2 Gastrointestinal: Normal bowel sounds, Soft and benign Musculoskeletal: No tenderness Integumentary: No rashes Neurological: Normal speech, Normal tone, Normal affect Lymphatics: No axilla or inguinal lymphadenopathy - Studies Medications List Reviewed: Yes Assessment And Plan - Current Problems (Diagnosis) (1) Dysphagia Current Visit: Yes Status: Acute Plan: Dysphagia most likely secondary to history of laryngeal cancer -modified barium swallow at this time. Positive for aspiration. -Scheduled PEG tube placement today Qualifiers: Dysphagia type: unspecified Qualified Code(s): R13.10 - Dysphagia, unspecified (2) Weight loss Current Visit: Yes Status: Chronic (3) Diabetes mellitus type 2 in nonobese Current Visit: No Status: Chronic (4) COPD (chronic obstructive pulmonary disease) Current Visit: No Status: Chronic Qualifiers: COPD type: COPD with acute exacerbation Qualified Code(s): J44.1 - Chronic obstructive pulmonary disease with (acute) exacerbation (5) History of laryngeal cancer Current Visit: No Status: Chronic - Plan Pending PEG tube placement Discharge Plan: Home Plan to discharge in: Greater than 2 days - Code Status/Comfort Care Code Status Assessed: Yes Critical Care: No
[2019-01-10] MEDS ORDERED: PROPOFOL 200 MG/20 ML VIAL IV ONE (14:09)
--- NOTE | 2019-01-10 14:38 | ENDO RPT ---
[address], [address] EGD WITH PEG PROCEDURE REPORT EXAM DATE: 01/10/2019 PATIENT NAME: Richie Paulino MR #: [id number] BIRTHDATE: 1945 ATTENDING: Christoph Guzmán Dr STATUS: outpatient STATOR WINDER: Marbella Crowder RN, Latha Rick RN, and Susan Magallon RN INDICATIONS: The patient is a 73 yr old Male here for an EGD with PEG due to dysphagia and malnutrition PROCEDURE PERFORMED: EGD-PEG MEDICATIONS: Per Anesthesia. TOPICAL ANESTHETIC: none CONSENT: The patient understands the risks and benefits of the procedure and understands that these risks include, but are not limited to: sedation, allergic reaction, infection, perforation and/or bleeding. Alternative means of evaluation and treatment include, among others: physical exam, x-rays, and/or surgical intervention. The patient elects to proceed with this endoscopic procedure. DESCRIPTION OF PROCEDURE: During intra-op preparation period all mechanical medical equipment was checked for proper function. Hand hygiene and appropriate measures for infection prevention was taken. After the risks, benefits and alternatives of the procedure were thoroughly explained, Informed consent was verified, confirmed and timeout was successfully executed by the treatment team. The patient was anesthetized with topical anesthesia and the EG-[id number] ([id number]) endoscope was introduced through the mouth and advanced to the third portion of the duodenum. The instrument was slowly withdrawn as the mucosa was fully examined. The upper, middle, and distal third of the esophagus were carefully inspected and no abnormalities were noted. The z-line was well seen at the GEJ. The endoscope was pushed into the fundus which was normal including a retroflexed view. The antrum, first and second part of the duodenum were unremarkable, except for J-turn stomach. The stomach was then inflated with air, and by a combination of transillumination and manual palpation, the site for the gastrostomy tube placement was selected and marked on the anterior abdominal wall. The skin of the anterior abdomen was surgically prepped and draped with sterile towels. Utilizing strict sterile technique, the selected site was then anesthetized with 1% xylocaine by injection into the skin and subcutaneous tissue. A 1 cm incision was made through the skin and subcutaneous tissue, and the needle/cannula assembly was then passed through the abdominal wall and through the anterior wall of the stomach, maintaining visualization with the endoscope. A snare device previously placed through the instrument channel was then opened and placed around the cannula, the needle was removed, and the insertion wire was passed through the cannula and into the stomach lumen. The snare was then loosened from the cannula, and repositioned to snare the insertion wire. The snare was then pulled up to the endoscope distal tip, and the scope was then withdrawn bringing with it the snare and insertion wire. The insertion wire was then released from the snare, and the PEG PUSH gastrostomy tube placed over the guidewire. Using the push technique, the tube was then pushed into place over the insertion wire at the abdominal wall end. The tube insertion site was then cleansed once again, and the external bolster was placed over the tube to secure it to the abdominal wall. A sterile dressing was then applied, and the procedure terminated. Retroflexed views revealed no abnormalities. The gastroscope was then slowly withdrawn and removed. ADVERSE EVENT: There were no complications. IMPRESSIONS: 1. Status post 20 Fr percutaneous endoscopic gastrostomy 2. Normal EGD except for J-turn stomach RECOMMENDATIONS: begin PEG use in 3 hours REPEAT EXAM: Christoph Guzmán Dr eSigned: Christoph Guzmán Dr 01/10/2019 2:38 PM cc: CPT CODES: ICD9 CODES: PATIENT NAME: Richie Paulino MR#: [id number]
[2019-01-10] MEDS ORDERED: ALBUTEROL 2.5 MG/3 ML NEB SOL ONE (15:05)
[2019-01-10] MEDS ORDERED: MORPHINE 4 MG/ML SYR ONE (15:09)
[2019-01-10] MEDS ORDERED: MORPHINE 4 MG/ML SYR IV ONE (15:40)
[2019-01-10] MEDS: ROPINIROLE HCL 1 MG TAB PO SCH (20:49)
[2019-01-10] MEDS: ATORVASTATIN 10 MG TAB PO SCH (20:49)
[2019-01-10] MEDS ORDERED: FENTANYL CITR 100 MCG/2 ML IV PRN (21:08)
[2019-01-11] MEDS: CLINDAMYCIN INJ 600 MG in NA CHLORIDE 0.9% 50 ML IV SCH ×2 (00:13→09:43)
[2019-01-11] MEDS: ARFORMOTEROL TARTRATE 15 MCG/2 ML VIAL.NEB IH SCH ×2 (07:33→20:00)
[2019-01-11] MEDS: ALLOPURINOL 300 MG TAB PO SCH (09:00)
[2019-01-11] MEDS: ISOSORBIDE MONO 10 MG TAB PO SCH ×2 (09:41→20:21)
[2019-01-11] MEDS: PANTOPRAZOLE 40 MG INJ IVP SCH ×2 (09:42→20:51)
[2019-01-11] MEDS: METOPROLOL XL 50 MG TAB PO SCH (09:42)
[2019-01-11] MEDS: HYDRALAZINE HCL 25 MG TABLET PO SCH ×3 (09:42→20:20)
[2019-01-11] MEDS: METFORMIN HCL 500 MG TAB PO SCH ×3 (09:42→18:18)
[2019-01-11] MEDS: FUROSEMIDE 40 MG/4 ML VIAL IV SCH ×2 (09:43→20:20)
[2019-01-11] MEDS: FENOFIBRATE 160 MG TAB PO SCH (09:43)
[2019-01-11] MEDS: CLOPIDOGREL 75 MG TABLET PO SCH (09:43)
[2019-01-11] MEDS: ALPRAZOLAM 1 MG TABLET PO SCH ×2 (09:43→20:21)
[2019-01-11] MEDS: GLUCERNA 1.5 CAL 1,000 ML BOT FT SCH ×5 (09:44→20:19)
[2019-01-11] MEDS: NA CHLORIDE 0.9% 1,000 ML IV SCH (09:55)
[2019-01-11] MEDS: levoFLOXacin 500 MG TAB PO SCH (13:14)
--- NOTE | 2019-01-11 15:16 | P.DS ---
Admission Date: 01/08/19 Discharge Date: 01/11/19 Disposition: ROUTINE DISCHARGE Discharge Condition: GOOD Reason for Admission: Dysphagia Consultations: GI - Problems (1) Dysphagia Current Visit: Yes Status: Acute Qualifiers: Dysphagia type: unspecified Qualified Code(s): R13.10 - Dysphagia, unspecified (2) Weight loss Current Visit: Yes Status: Chronic (3) Diabetes mellitus type 2 in nonobese Current Visit: No Status: Chronic (4) COPD (chronic obstructive pulmonary disease) Current Visit: No Status: Chronic Qualifiers: COPD type: COPD with acute exacerbation Qualified Code(s): J44.1 - Chronic obstructive pulmonary disease with (acute) exacerbation (5) History of laryngeal cancer Current Visit: No Status: Chronic Brief History of Present Illness: Patient is a 73-year-old gentleman who came to the hospital with difficulty swallowing. Patient had a modified barium swallow study done a few weeks ago which revealed that he would benefit from a PEG tube. However, the family did not want that at that time. He was sent home on a honey thick pureed diet. He has had difficulty with swallowing. He came back to the hospital because he has continued to lose weight. He will need to be readmitted for further evaluation. He was scheduled to get a PEG tube on the 06 of January. However, because of logistic reasons it was not able to get completed. He came to the ER because he has remained cachectic. He will need further evaluation at this time. Hospital Course: Overall during the hospital stay patient main stable Patient was initially admitted to the hospital for COPD exacerbation. Was started on duo nebs, steroids, fluids. Patient was also started on IV antibiotics at this time. Patient did well overall. Patient was also found to have dysphagia. 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 Patient had a modified barium swallow done here in the hospital. Patient's modified barium swallow was positive for dysphagia and patient was kept NPO. GI was consulted. Patient had a PEG tube placement at that time. Patient was started on tube feeds based on dietary recommendations and was doing well overall. Patient was then discharged home under stable condition was asked to follow up with GI and primary care provider in about 1-2 days post discharge. Vital Signs/Physical Exam: Temp Pulse Resp BP Pulse Ox 98.0 F 94 H 28 H 106/58 L 92 01/11/19 12:00 01/11/19 12:00 01/11/19 12:00 01/11/19 12:00 01/11/19 12:00 General: Alert, In no apparent distress HEENT: Atraumatic, PERRLA, EOMI Neck: Supple, JVD not distended Respiratory: Clear to auscultation bilaterally, Normal air movement Cardiovascular: Regular rate/rhythm, Normal S1 S2 Gastrointestinal: Normal bowel sounds, No tenderness Musculoskeletal: No tenderness Integumentary: No rashes Neurological: Normal speech, Normal tone, Normal affect Lymphatics: No axilla or inguinal lymphadenopathy Laboratory Data at Discharge: WBC 6.2 K/uL (4.3-10.9) 01/07/19 22:35 Hgb 10.8 g/dL (13.6-17.9) L 01/07/19 22:35 Hct 33.8 % (39.6-49.0) L 01/07/19 22:35 Plt Count 283 K/uL (152-406) 01/07/19 22:35 APTT 33.0 SECONDS (24.3-36.9) 01/10/19 09:53 Sodium 143 mmol/L (136-145) 01/07/19 22:35 Potassium 3.5 mmol/L (3.5-5.1) 01/07/19 22:35 BUN 20 mg/dL (7-18) H 01/07/19 22:35 Creatinine 0.76 mg/dL (0.55-1.3) 01/07/19 22:35 Glucose 117 mg/dL (74-106) H 01/07/19 22:35 Home Medications: ALPRAZolam [Xanax*] 1 mg PO BID 01/08/19 Allopurinol 300 mg PO DAILY 01/08/19 Arformoterol Tartrate [Brovana] 15 mcg IH BID 01/08/19 Clopidogrel Bisulfate [Plavix] 75 mg PO DAILY 01/08/19 Fenofibrate [Tricor*] 145 mg PO DAILY 01/08/19 Furosemide 40 mg PO DAILY 01/08/19 Hydralazine HCl [Apresoline] 100 mg PO TID 01/08/19 Isosorbide [place] (Bid) [Ismo 10 mg Tab*] 10 mg PO BID 01/08/19 Metformin HCl 1,000 mg PO BID 01/08/19 Metoprolol Succinate 50 mg PO DAILY 01/08/19 Pantoprazole Sodium [Protonix] 40 mg PO DAILY 01/08/19 Pravastatin Sodium [Pravachol] 40 mg PO DAILY 01/08/19 Quinine Sulfate [Qualaquin] 324 mg PO Q8H 01/08/19 Ropinirole HCl [Requip*] 0.5 mg PO BEDTIME 01/08/19 Temazepam 30 mg PO BEDTIME PRN 01/08/19 Tramadol HCl [Ultram] 50 mg PO BID PRN 01/08/19 Valsartan/Hydrochlorothiazide [Diovan Hct 320-25 mg Tablet] 1 each PO DAILY levoFLOXacin [Levaquin*] 500 mg PO DAILY #14 tab 01/11/19 New Medications: levoFLOXacin [Levaquin*] 500 mg PO DAILY #14 tab Patient Discharge Instructions: Please f.u with GI and PCP in 1 to 2 week post discharge Diet: Feeding Tube Activity: Ad vj Followup: Christoph Guzmán MD [ASSOCIATE-ACTIVE - CAN ADMIT] -
[2019-01-11] MEDS ORDERED: Meropenem 1000 MG/VIAL IV SCH (17:00)
--- NOTE | 2019-01-11 17:59 | P.PN ---
Subjective Date of Service: 01/11/19 Chief Complaint: Dysphagia, failed MBS Subjective: Improving (S/p PEG placement. Tolerating TFs.) Review of Systems 10-point ROS is otherwise unremarkable General: Weakness Physical Examination - Vital Signs Temperature: 98.0 F Blood Pressure: 115/56 Pulse: 79 Respirations: 31 Pulse Ox (%): 97 - Physical Exam General: Alert, In no apparent distress, Disheveled HEENT: Atraumatic, Normocephalic, PERRLA, EOMI Neck: Supple Respiratory: Normal air movement Cardiovascular: Normal pulses Gastrointestinal: Soft and benign, No ascites, No tenderness, No rebound, No guarding Neurological: Normal speech, Normal strength at 5/5 x4 extr - Studies Medications List Reviewed: Yes Assessment And Plan - Current Problems (Diagnosis) (1) Dysphagia Current Visit: Yes Status: Acute Qualifiers: Dysphagia type: unspecified Qualified Code(s): R13.10 - Dysphagia, unspecified (2) Weight loss Current Visit: Yes Status: Chronic (3) COPD (chronic obstructive pulmonary disease) Current Visit: No Status: Chronic Qualifiers: COPD type: COPD with acute exacerbation Qualified Code(s): J44.1 - Chronic obstructive pulmonary disease with (acute) exacerbation (4) Diabetes mellitus type 2 in nonobese Current Visit: No Status: Chronic (5) History of laryngeal cancer Current Visit: No Status: Chronic - Plan REC: 1) continue TFs 2) NPO 3) check albumin & pre-albumin
[2019-01-11 20:05] LABS: Albumin 2.2 g/dL (3.4-5.0); Prealbumin 5.9 mg/dL (20-40)
[2019-01-11] MEDS: ROPINIROLE HCL 1 MG TAB PO SCH (20:21)
[2019-01-11] MEDS: ATORVASTATIN 10 MG TAB PO SCH (20:21)
[2019-01-11] MEDS: METOCLOPRAMIDE 5 MG TAB FT SCH (20:21)
[2019-01-12] MEDS: ARFORMOTEROL TARTRATE 15 MCG/2 ML VIAL.NEB IH SCH (07:50)
[2019-01-12] MEDS: HYDRALAZINE HCL 25 MG TABLET PO SCH ×2 (09:00→14:00)
[2019-01-12] MEDS: ISOSORBIDE MONO 10 MG TAB PO SCH (09:00)
[2019-01-12] MEDS: ALPRAZOLAM 1 MG TABLET PO SCH (09:00)
[2019-01-12] MEDS: METOPROLOL XL 50 MG TAB PO SCH (09:00)
[2019-01-12] MEDS: GLUCERNA 1.5 CAL 1,000 ML BOT FT SCH ×2 (09:00→13:00)
[2019-01-12 09:24] VITALS: O2SAT 93
[2019-01-12 09:33] VITALS: TEMP 97.1
[2019-01-12] MEDS: PANTOPRAZOLE 40 MG INJ IVP SCH (09:55)
[2019-01-12] MEDS: FUROSEMIDE 40 MG/4 ML VIAL IV SCH (09:55)
[2019-01-12] MEDS: CLOPIDOGREL 75 MG TABLET PO SCH (09:56)
[2019-01-12] MEDS: METOCLOPRAMIDE 5 MG TAB FT SCH (09:56)
[2019-01-12] MEDS: ALLOPURINOL 300 MG TAB PO SCH (09:56)
[2019-01-12] MEDS: levoFLOXacin 500 MG TAB PO SCH (09:56)
[2019-01-12] MEDS: METFORMIN HCL 500 MG TAB PO SCH (09:56)
[2019-01-12] MEDS: FENOFIBRATE 160 MG TAB PO SCH (09:56)
[2019-01-12 09:58] VITALS: BP 110/60
[2019-01-12] MEDS ORDERED: LEVALBUTEROL 1.25 MG/3 ML NEB ONE (12:15)
[2019-01-12] MEDS ORDERED: IPRATROPIUM BROM 0.5MG/2.5ML ONE (12:15)
--- NOTE | 2019-01-12 12:53 | P.PN ---
Subjective Date of Service: 01/12/19 Chief Complaint: Dysphagia, failed MBS Patient seen and examined at bedside with RN. Chart reviewed. DC held due to the weather and supplies for PEG tube not Delivered to the house. Review of Systems 10-point ROS is otherwise unremarkable Physical Examination - Vital Signs Temperature: 97.1 F Blood Pressure: 110/60 Pulse: 80 Respirations: 31 Pulse Ox (%): 97 - Physical Exam General: Alert, In no apparent distress HEENT: Atraumatic, PERRLA, EOMI Neck: Supple, JVD not distended Respiratory: Clear to auscultation bilaterally, Normal air movement Cardiovascular: Regular rate/rhythm, Normal S1 S2 Gastrointestinal: Normal bowel sounds, No tenderness Musculoskeletal: No tenderness Integumentary: No rashes Neurological: Normal speech, Normal tone, Normal affect Lymphatics: No axilla or inguinal lymphadenopathy - Studies Medications List Reviewed: Yes Assessment And Plan - Current Problems (Diagnosis) (1) Dysphagia Current Visit: Yes Status: Acute Plan: Dysphagia most likely secondary to history of laryngeal cancer -modified barium swallow at this time. Positive for aspiration. -S/P PEG tube placement Qualifiers: Dysphagia type: unspecified Qualified Code(s): R13.10 - Dysphagia, unspecified (2) Weight loss Current Visit: Yes Status: Chronic (3) Diabetes mellitus type 2 in nonobese Current Visit: No Status: Chronic (4) COPD (chronic obstructive pulmonary disease) Current Visit: No Status: Chronic Qualifiers: COPD type: COPD with acute exacerbation Qualified Code(s): J44.1 - Chronic obstructive pulmonary disease with (acute) exacerbation (5) History of laryngeal cancer Current Visit: No Status: Chronic - Plan Supplies for PEG tube delivered today. Pt to be DC home today Discharge Plan: Home Plan to discharge in: 24 Hours - Code Status/Comfort Care Code Status Assessed: Yes Critical Care: No
[2019-01-12] MEDS ORDERED: LEVALBUTEROL 0.63 MG/3 ML NEB NEB PRN (15:40)
[2019-01-12] MEDS ORDERED: IPRATROPIUM BROM 0.5MG/2.5ML NEB PRN (15:40)
[2019-01-12] MEDS ORDERED: LEVALBUTEROL 0.63 MG/3 ML NEB NEB SCH (20:00)
[2019-01-12] MEDS ORDERED: IPRATROPIUM BROM 0.5MG/2.5ML NEB SCH (20:00)
== END 2019-01-12 16:43 | disposition home health service (06) | DRG 191 ==
LOC: ER 22:00 → ERHOLD 01-08 01:07 → 2ND 01-08 02:01
PROVIDERS: ADMIT Hospitalist; ATTEND Hospitalist
PROC: 0DH63UZ Insertion of Feeding Device into Stomach, Percutaneous Approach (ICD-10-PCS; principal; 2019-01-10 14:45)
DX: J44.1 Chronic obstructive pulmonary disease with (acute) exacerbation (principal); R64 Cachexia; R13.10 Dysphagia, unspecified; Z68.20 Body mass index [BMI] 20.0-20.9, adult; E11.9 Type 2 diabetes mellitus without complications; T17.220A Food in pharynx causing asphyxiation, initial encounter; I25.10 Atherosclerotic heart disease of native coronary artery without angina pectoris; I11.0 Hypertensive heart disease with heart failure; I50.9 Heart failure, unspecified; Z85.21 Personal history of malignant neoplasm of larynx; Z95.1 Presence of aortocoronary bypass graft; Z88.0 Allergy status to penicillin
CPT/HCPCS: 36415; 71045; 74230; 80048; 81003; 81015; 82040; 82962; 83880; 84134; 84484; 85025; 85730; 87040; 87070; 87077; 87186; 87205; 87804; 92611; 93005; 94640; 94760; 96374; 99285; C9113; J1940; J2704; J2930; J3010; J7030; J7605

== ENCOUNTER 2019-01-20 14:12 | Inpatient (IN) | payer OTHER ==
[2019-01-20] MEDS ORDERED: METHYLPREDNISOLONE 125 MG INJ ONE (14:37)
[2019-01-20] MEDS ORDERED: LEVALBUTEROL 1.25 MG/3 ML NEB ONE (14:37)
[2019-01-20] MEDS ORDERED: IPRATROPIUM BROM 0.5MG/2.5ML ONE (14:37)
--- NOTE | 2019-01-20 15:17 | RAD REPORT ---
EXAM DESCRIPTION: RAD - Chest Single View - 01/20/2019 2:55 pm CLINICAL HISTORY: Cough, COPD COMPARISON: January 09 ; November 2017 TECHNIQUE: AP portable chest image was obtained 1452 hours . FINDINGS: Lung volumes are diminished compared to prior imaging. Interstitial and alveolar opacities have developed in the right lung base. Heart size is normal. Upper lobe vasculature within normal li mits. Fullness of the left hilum is not clearly different from comparison. No measurable pleural effu randolph and no pneumothorax. No acute bony abnormality seen. No acute aortic findings. IMPRESSION: Early right lung base pneumonia. Fullness of the left hilum is not substantially different. Mass or lymphadenopathy is unlikely but fo llowup two view imaging would be recommended after completion of medical management for the right bas e pneumonia.
[2019-01-20 15:23] LABS: BUN Blood Urea Nitrogen 21 mg/dL (7-18); Glucose Level 86 mg/dL (74-106); NT PRO-BNP 1992 pg/mL (<125); Potassium 3.9 mmol/L (3.5-5.1); Sodium Level 132 mmol/L (136-145)
[2019-01-20 15:24] LABS: Bicarbonate 41 mmol/L (21-32)
[2019-01-20 15:28] LABS: Absolute Lymphocytes (CBC) 0.8 K/uL (0.7-4.9); Basophils % 0.4 % (0-1.3); Hematocrit 31.2 % (39.6-49.0); Lymphocytes % 13.6 % (15.3-44.8); MPV 7.9 fL (7.6-11.3); RBC Red Blood Cell Count 3.85 M/uL (4.33-5.43)
--- NOTE | 2019-01-20 15:31 | EKG ---
Test Date: 2019-01-20 Test Time: 14:25:04 Tester Regulator: STEFF MEASUREMENT RESULTS: Intervals: Rate: 82 LA: 136 QRSD: 102 QT: 358 QTc: 418 [place]: P: 87 LA: 136 QRS: 81 T: 38 INTERPRETIVE STATEMENTS: Normal sinus rhythm Nonspecific ST and T wave abnormality Abnormal ECG Compared to ECG 01/07/2019 22:25:42 ST (T wave) deviation now present Electronically Signed On 01-20-19 15:30:02 CDT by Gabriel Sawyer
--- NOTE | 2019-01-20 15:56 | ER ---
Nurse's Notes [facility] Name: Richie Paulino Age: 73 yrs Sex: Male : 1945 Arrival Date: 01/20/2019 Time: 14:18 Bed 27 Private MD: Diagnosis: Pneumonia;Chronic obstructive pulmonary disease with acute lower respiratory infection;Unspecified combined systolic (congestive) and diastolic (congestive) heart failure Presentation: 01/20 14:21 Presenting complaint: EMS states: The pt feels like his throat is swelling and it has tr5 become more difficult for him to breathe. He ran out of his inhaler and was unable to get it refilled due to financial reasons. Pt was given 2.5 albuterol and 0.5 atrovent breathing treatment and has somewhat improved. pt is currently on 3L O2 nasal canula. Transition of care: patient was not received from another setting of care. Onset of symptoms was January 20, 2019. Risk Assessment: Do you want to hurt yourself or someone else? Patient reports no desire to harm self or others. Initial Sepsis Screen: Does the patient meet any 2 criteria? No. Patient's initial sepsis screen is negative. Does the patient have a suspected source of infection? No. Patient's initial sepsis screen is negative. Care prior to arrival: Medication(s) given: Albuterol Neb x 1, Atrovent Neb x 1. 14:21 Method Of Arrival: EMS: [facility] tr5 14:21 Acuity: RICHARD 2 tr5 14:21 Acuity: RICHARD 3 tr5 Triage Assessment: 14:20 Respiratory: Onset: The symptoms/episode began/occurred this morning. tr5 14:20 Respiratory: Reports shortness of breath the patient has moderate shortness of breath. tr5 Historical: - Allergies: 14:32 Amoxicillin; tr5 14:32 PENICILLINS; tr5 14:32 Codeine; tr5 - Home Meds: 14:32 Aspirin Oral [Active]; biotin Oral [Active]; fenofibrate Oral [Active]; Fish Oil Oral tr5 [Active]; Folic Acid Oral [Active]; pravastatin Oral [Active]; Furosemide Oral [Active]; Tramadol Oral [Active]; senosides [Active]; pantoprazole Oral [Active]; Metformin Oral [Active]; Hydralazine Oral [Active]; clopidogrel 75 mg Oral tab 1 tab once daily [Active]; Isosorbide Mononitrate Oral [Active]; metoprolol succinate 50 mg Oral Tb24 [Active]; nitroglycerin 0.4 mg SL subl [Active]; - PMHx: 14:32 CAD; Cancer; throat; CHF; COPD; Diabetes - NIDDM; Hypertension; tr5 - PSHx: 14:32 Heart stents; tr5 - Immunization history:: Adult Immunizations up to date. - Social history:: Smoking status: . - Ebola Screening: : No symptoms or risks identified at this time. - Family history:: not pertinent. - Hospitalizations: : No recent hospitalization is reported. Screenin:15 Abuse screen: Denies threats or abuse. Nutritional screening: No deficits noted. tr5 Tuberculosis screening: No symptoms or risk factors identified. Fall Risk None identified. Assessment: 14:15 General: Appears uncomfortable, Behavior is calm, cooperative. Pain: Denies pain. tr5 Neuro: Level of Consciousness is awake, alert, obeys commands, Oriented to person, place, time, [employer] are equal bilaterally Weakness. Cardiovascular: Heart tones present Capillary refill < 3 seconds Pulses are all present. Edema pitting to left midcalf, left ankle, left foot, right midcalf, right ankle and right foot Rhythm is regular. Cardiovascular: Reports shortness of breath, Denies chest pain. Respiratory: Airway is patent Respiratory effort is even, labored, Respiratory pattern is symmetrical, Sputum is thin, yellow Breath sounds with crackles bilaterally. Breath sounds are diminished bilaterally. GI: No signs and/or symptoms were reported involving the gastrointestinal system. : No signs and/or symptoms were reported regarding the genitourinary system. EENT: No signs and/or symptoms were reported regarding the EENT system. Derm: Skin is fragile, is thin, Skin is dry, Skin is normal. Musculoskeletal: Capillary refill < 3 seconds, Range of motion: intact in all extremities. 15:00 Reassessment: Patient appears in no apparent distress at this time. Patient and/or tr5 family updated on plan of care and expected duration. Pain level reassessed. Patient is alert, oriented x 3, equal unlabored respirations, skin warm/dry/pink. 16:00 Reassessment: Patient appears in no apparent distress at this time. No changes from tr5 previously documented assessment. Patient and/or family updated on plan of care and expected duration. Pain level reassessed. Patient is alert, oriented x 3, equal unlabored respirations, skin warm/dry/pink. 17:00 Reassessment: Patient appears in no apparent distress at this time. Patient and/or tr5 family updated on plan of care and expected duration. Pain level reassessed. Patient is alert, oriented x 3, equal unlabored respirations, skin warm/dry/pink. Vital Signs: 14:32 BP 114 / 78; Pulse 83; Resp 22; Temp 98.4(O); Pulse Ox 96% on 3 lpm NC; tr5 15:32 BP 124 / 45; Pulse 79; Resp 22; Pulse Ox 98% on 4 lpm NC; tr5 16:34 BP 119 / 49; Pulse 89; Resp 24; Pulse Ox 96% on 4 lpm NC; tr5 17:10 BP 116 / 49; Pulse 87; Resp 23; Temp 98.2(O); Pulse Ox 98% on 4 lpm NC; tr5 ED Course: 14:15 Placed in gown. Bed in low position. Call light in reach. Side rails up X2. Cardiac tr5 monitor on. Pulse ox on. NIBP on. 14:15 Initial Neb Treatment Given as ordered Patient was instructed and evaluated on tr5 procedure Patient tolerated procedure well without adverse effect. Inserted saline lock: 22 gauge in right antecubital area, using aseptic technique. 14:18 Patient arrived in ED. ss 14:20 Shaun Segal, RN is Primary Nurse. tr5 14:20 Initial lab(s) drawn, by dc, sent to lab. First set of blood cultures drawn. tr5 14:23 Warren Grubbs MD is Attending Physician. rn 14:28 Triage completed. tr5 14:32 Arm band placed on Patient placed. tr5 14:39 EKG done, by certified medical technician. reviewed by Warren Grubbs MD. sm3 14:55 XRAY CXR (1 view) In Process Unspecified. EDMS 14:59 Second set of blood cultures drawn. tr5 15:50 Mindy Nolan MD is Hospitalizing Provider. rn 17:16 transfer transportation to receiving facility. tr5 17:16 No provider procedures requiring assistance completed. Patient admitted, IV remains in tr5 place. Administered Medications: 14:38 Drug: AtroVENT Aerosol 0.5 mg Route: Inhalation; mg2 14:39 Drug: Xopenex (3) 1.25 mg Route: Inhalation; mg2 14:50 Drug: SOLU-Medrol 125 mg Route: IVP; Site: right antecubital; tr5 17:08 Follow up: Response: No adverse reaction tr5 16:20 Drug: LevaQUIN 750 mg Volume: 150 ml; Route: IVPB; Infused Over: 90 mins; Site: right tr5 antecubital; 17:07 Follow up: IV Status: Infusion continued upon admission; IV Intake: 150ml tr5 16:39 Drug: vancoMYCIN 1 grams Route: IVPB; Infused Over: 2 hrs; Site: right antecubital; tr5 17:07 Follow up: IV Status: Infusion continued upon admission; IV Intake: 250ml tr5 Intake: 17:07 IV: 250ml; Total: 250ml. tr5 17:07 IV: 150ml; Total: 400ml. tr5 Outcome: 15:54 Decision to Hospitalize by Provider. rn 17:16 Admitted to Med/surg accompanied by tech, via stretcher, with oxygen, with chart. tr5 17:16 Condition: stable 17:16 Instructed on the need for admit. 17:34 Patient left the ED. tr5 Signatures: Dispatcher [employer] EDMS Warren Grubbs MD MD rn Smirch, Shelby, RN RN ss Gerardo Mcneil RN RN mg2 Avis Hernandez Tommie, RN RN tr5 Corrections: (The following items were deleted from the chart) 17:15 17:10 BP 116 / 49; Pulse 87bpm; Resp 33bpm; Pulse Ox 98% 4 lpm Nasal Cannula; Temp tr5 98.2F Oral; tr5 17:18 17:17 Respiratory: Onset: The symptoms/episode began/occurred this morning, tr5 tr5
--- NOTE | 2019-01-20 15:56 | EDPHYS ---
Physician Documentation [facility] Name: Richie Paulino Age: 73 yrs Sex: Male : 1945 Arrival Date: 01/20/2019 Time: 14:18 Bed 27 Private MD: ED Physician Warren Grubbs HPI: 01/20 15:43 This 73 yrs old Male presents to ER via EMS with complaints of Shortness Of rn Breath. 15:43 The patient has shortness of breath with light activity. Onset: The symptoms/episode rn began/occurred today. Duration: The symptoms are continuous. The patient's shortness of breath is aggravated by exertion, light activity. Severity of symptoms: At their worst the symptoms were moderate in the emergency department the symptoms are unchanged. The patient has experienced similar episodes in the past. Reports recently admitted for PEG tube placement and COPD, returns for cough and sob, productive cough. Historical: - Allergies: 14:32 Amoxicillin; tr5 14:32 PENICILLINS; tr5 14:32 Codeine; tr5 - Home Meds: 14:32 Aspirin Oral [Active]; biotin Oral [Active]; fenofibrate Oral [Active]; Fish Oil Oral tr5 [Active]; Folic Acid Oral [Active]; pravastatin Oral [Active]; Furosemide Oral [Active]; Tramadol Oral [Active]; senosides [Active]; pantoprazole Oral [Active]; Metformin Oral [Active]; Hydralazine Oral [Active]; clopidogrel 75 mg Oral tab 1 tab once daily [Active]; Isosorbide Mononitrate Oral [Active]; metoprolol succinate 50 mg Oral Tb24 [Active]; nitroglycerin 0.4 mg SL subl [Active]; - PMHx: 14:32 CAD; Cancer; throat; CHF; COPD; Diabetes - NIDDM; Hypertension; tr5 - PSHx: 14:32 Heart stents; tr5 - Immunization history:: Adult Immunizations up to date. - Social history:: Smoking status: . - Ebola Screening: : No symptoms or risks identified at this time. - Family history:: not pertinent. - Hospitalizations: : No recent hospitalization is reported. ROS: 15:43 Constitutional: + chills Eyes: Negative for injury, pain, redness, and discharge, Neck: rn Negative for injury, pain, and swelling, Cardiovascular: Negative for chest pain, palpitations, and edema, Respiratory: + sob and cough, + wheezing Abdomen/GI: Negative for abdominal pain, nausea, vomiting, diarrhea, and constipation, MS/Extremity: Negative for injury and deformity, Skin: Negative for injury, rash, and discoloration, Neuro: Negative for headache, weakness, numbness, tingling, and seizure. Exam: 15:46 Constitutional: This is a well developed, well nourished patient who is awake, alert, rn + respiratory distress Head/Face: Normocephalic, atraumatic. Eyes: Pupils equal round and reactive to light, extra-ocular motions intact. Lids and lashes normal. Conjunctiva and sclera are non-icteric and not injected. Cornea within normal limits. Periorbital areas with no swelling, redness, or edema. Cardiovascular: Regular rate and rhythm. No pulse deficits. Respiratory: + coarse bilateral breath sounds, worse on right base, + wheezing Abdomen/GI: soft, non-tender MS/ Extremity: Pulses equal, no cyanosis. Neurovascular intact. Full, normal range of motion. Equal circumference. 1+ pitting edema. Neuro: Awake and alert, GCS 15, oriented to person, place, time, and situation. Cranial nerves II-XII grossly intact. Motor strength 5/5 in all extremities. Sensory grossly intact. Vital Signs: 14:32 BP 114 / 78; Pulse 83; Resp 22; Temp 98.4(O); Pulse Ox 96% on 3 lpm NC; tr5 15:32 BP 124 / 45; Pulse 79; Resp 22; Pulse Ox 98% on 4 lpm NC; tr5 16:34 BP 119 / 49; Pulse 89; Resp 24; Pulse Ox 96% on 4 lpm NC; tr5 17:10 BP 116 / 49; Pulse 87; Resp 23; Temp 98.2(O); Pulse Ox 98% on 4 lpm NC; tr5 MDM: 14:23 Patient medically screened. rn 15:46 Differential diagnosis: Bronchitis Chronic Obstructive Pulmonary Disease pneumonia, rn Pneumothorax. Data reviewed: vital signs, nurses notes, lab test result(s), radiologic studies, plain films, and as a result, I will admit patient. Counseling: I had a detailed discussion with the patient and/or guardian regarding: the historical points, exam findings, and any diagnostic results supporting the discharge/admit diagnosis, lab results, radiology results, the need for further work-up and treatment in the hospital. Response to treatment: the patient's symptoms have mildly improved after treatment, and as a result, I will admit patient. Admission orders: after a detailed discussion of the patient's condition and case, the admit orders are written by me. ED course: Pt with early pneumonia, has been on abx since recent admission, and worsening. Will admit to Dr. Nolan. . 01/20 14:29 Order name: Blood Culture Adult (2) rn 01/20 14:29 Order name: BMP; Complete Time: 15:43 rn 01/20 14:29 Order name: XRAY CXR (1 view); Complete Time: 15:43 rn 01/20 14:29 Order name: CBC with Diff; Complete Time: 15:43 rn 01/20 14:29 Order name: NT PRO-BNP; Complete Time: 15:43 rn 01/20 14:29 Order name: Flu rn 01/20 14:29 Order name: EKG; Complete Time: 14:30 rn 01/20 14:29 Order name: Cardiac monitoring; Complete Time: 14:39 rn 01/20 14:29 Order name: EKG - Nurse/Tech; Complete Time: 14:39 rn 01/20 14:29 Order name: IV Saline Lock; Complete Time: 14:52 rn 01/20 14:29 Order name: Labs collected and sent; Complete Time: 14:52 rn 01/20 14:29 Order name: O2 Per Protocol; Complete Time: 14:39 rn 01/20 14:29 Order name: O2 Sat Monitoring; Complete Time: 14:39 rn Administered Medications: 14:38 Drug: AtroVENT Aerosol 0.5 mg Route: Inhalation; mg2 14:39 Drug: Xopenex (3) 1.25 mg Route: Inhalation; mg2 14:50 Drug: SOLU-Medrol 125 mg Route: IVP; Site: right antecubital; tr5 17:08 Follow up: Response: No adverse reaction tr5 16:20 Drug: LevaQUIN 750 mg Volume: 150 ml; Route: IVPB; Infused Over: 90 mins; Site: right tr5 antecubital; 17:07 Follow up: IV Status: Infusion continued upon admission; IV Intake: 150ml tr5 16:39 Drug: vancoMYCIN 1 grams Route: IVPB; Infused Over: 2 hrs; Site: right antecubital; tr5 17:07 Follow up: IV Status: Infusion continued upon admission; IV Intake: 250ml tr5 Disposition: 01/20/19 15:54 Hospitalization ordered by Mindy Nolan for Inpatient Admission. Preliminary diagnosis are Pneumonia, Chronic obstructive pulmonary disease with acute lower respiratory infection, Unspecified combined systolic (congestive) and diastolic (congestive) heart failure. - Bed requested for Telemetry/MedSurg (Inpatient). - Status is Inpatient Admission. tr5 - Condition is Stable. - Problem is new. - Symptoms have improved. UTI on Admission? No Signatures: Dispatcher [employer] EDMS Brisa Garcia RN RN dw Nieto, Roman, MD MD rn Gardose, Michele, RN RN mg2 Rodriguez, Tommie, RN RN tr5 Corrections: (The following items were deleted from the chart) 15:49 15:46 Constitutional: This is a well developed, well nourished patient who is awake, rn alert, + respiratory distress Head/Face: Normocephalic, atraumatic. Eyes: Pupils equal round and reactive to light, extra-ocular motions intact. Lids and lashes normal. Conjunctiva and sclera are non-icteric and not injected. Cornea within normal limits. Periorbital areas with no swelling, redness, or edema. Cardiovascular: Regular rate and rhythm. No pulse deficits. Respiratory: + coarse bilateral breath sounds, worse on left base Abdomen/GI: soft, non-tender MS/ Extremity: Pulses equal, no cyanosis. Neurovascular intact. Full, normal range of motion. Equal circumference. 1+ pitting edema. Neuro: Awake and alert, GCS 15, oriented to person, place, time, and situation. Cranial nerves II-XII grossly intact. Motor strength 5/5 in all extremities. Sensory grossly intact. rn 16:55 15:54 Hospitalization Ordered by Mindy Nolan MD for Inpatient Admission. Preliminary dw diagnosis is Pneumonia; Chronic obstructive pulmonary disease with acute lower respiratory infection; Unspecified combined systolic (congestive) and diastolic (congestive) heart failure. Bed requested for Telemetry/MedSurg (Inpatient). Status is Inpatient Admission. Condition is Stable. Problem is new. Symptoms have improved. UTI on Admission? No. rn 17:34 16:55 01/20/2019 15:54 Hospitalization Ordered by Mindy Nolan MD for Inpatient tr5 Admission. Preliminary diagnosis is Pneumonia; Chronic obstructive pulmonary disease with acute lower respiratory infection; Unspecified combined systolic (congestive) and diastolic (congestive) heart failure. Bed requested for Telemetry/MedSurg (Inpatient). Status is Inpatient Admission. Condition is Stable. Problem is new. Symptoms have improved. UTI on Admission? No. dw
[2019-01-20] MEDS ORDERED: Levofloxacin 750mg IV 750 MG/150 ML BAG IV ONE (16:13)
[2019-01-20] MEDS ORDERED: VANCOMYCIN/NS 1 gm 1 GM/250 ML BAG IV ONE (17:00)
[2019-01-20] MEDS ORDERED: ONDANSETRON 4 MG/2 ML VIAL IV PRN (17:19)
--- NOTE | 2019-01-20 17:22 | P.HP ---
Certification for Inpatient Patient admitted to: Observation With expected LOS: <2 Midnights Patient will require the following post-hospital care: None Practitioner: I am a practitioner with admitting privileges, knowledge of patient current condition, hospital course, and medical plan of care. Services: Services provided to patient in accordance with Admission requirements found in Title 42 Section 412.3 of the Code of Federal Regulations Patient History Date of Service: 01/20/19 Primary Care Provider: Dr sellers Reason for admission: SOB History of Present Illness: Patient is a 73-year-old pmhx of Dysphagia, CHF and COPD who came to the ER with c/o of SOB, cough, phelgm for past 2 days. Progressively Worsening. Also complains of having Chest Pain with Cough. Recently admitted for PEG tube placement and DC on 01/12/19. He states he feels like his throat is swollen. Was Recently Prescribed ABX however did not improve and thus Came to the ER. Pt frequently Visits ER for similar Complains. Denies N/V/Abd pain or diarrhea noted. Allergies erythromycin base [Erythromycin Base] Allergy (Verified 01/08/19 04:06) Rash Penicillins Allergy (Verified 01/08/19 04:06) Anaphylaxis Azithromycin Allergy (Uncoded 02/03/18 10:50) Unknown Home Medications: ALPRAZolam [Xanax*] 1 mg PO BID 01/08/19 Allopurinol 300 mg PO DAILY 01/08/19 Arformoterol Tartrate [Brovana] 15 mcg IH BID 01/08/19 Clopidogrel Bisulfate [Plavix] 75 mg PO DAILY 01/08/19 Fenofibrate [Tricor*] 145 mg PO DAILY 01/08/19 Furosemide 40 mg PO DAILY 01/08/19 Hydralazine HCl [Apresoline] 100 mg PO TID 01/08/19 Isosorbide Dundy (Bid) [Ismo 10 mg Tab*] 10 mg PO BID 01/08/19 Metformin HCl 1,000 mg PO BID 01/08/19 Metoprolol Succinate 50 mg PO DAILY 01/08/19 Pantoprazole Sodium [Protonix] 40 mg PO DAILY 01/08/19 Pravastatin Sodium [Pravachol] 40 mg PO DAILY 01/08/19 Quinine Sulfate [Qualaquin] 324 mg PO Q8H 01/08/19 Ropinirole HCl [Requip*] 0.5 mg PO BEDTIME 01/08/19 Temazepam 30 mg PO BEDTIME PRN 01/08/19 Tramadol HCl [Ultram] 50 mg PO BID PRN 01/08/19 Valsartan/Hydrochlorothiazide [Diovan Hct 320-25 mg Tablet] 1 each PO DAILY levoFLOXacin [Levaquin*] 500 mg PO DAILY #14 tab 01/11/19 - Past Medical/Surgical History Diabetic: Yes -: restless leg -: CAD -: [place] -: PVD -: NIDDM -: high cholesterol -: gout -: copd -: hypertension -: asbestosis -: CHF -: throat cancer? -: Coronary artery bypass grafting -: left elbow surgery -: hernia repair - Family History Mother -: Heart disease, Hypertension, Diabetes, Stroke - Social History Alcohol use: No CD- Drugs: No Caffeine use: No Review of Systems 10-point ROS is otherwise unremarkable Physical Examination - Physical Exam General: Alert, In no apparent distress HEENT: Atraumatic, PERRLA, Mucous membr. moist/pink, EOMI, Sclerae nonicteric Neck: Supple, 2+ carotid pulse no bruit, No LAD, Without JVD or thyroid abnormality Respiratory: Clear to auscultation bilaterally, Normal air movement Cardiovascular: Regular rate/rhythm, Normal S1 S2 Gastrointestinal: Normal bowel sounds, No tenderness Musculoskeletal: No tenderness Integumentary: No rashes Neurological: Normal gait, Normal speech, Normal strength at 5/5 x4 extr, Normal tone, Normal affect Lymphatics: No axilla or inguinal lymphadenopathy - Studies Laboratory Data (last 24 hrs) 01/20/19 14:20: WBC 6.1, Hgb 10.1 L, Hct 31.2 L, Plt Count 270 01/20/19 14:20: Sodium 132 L, Potassium 3.9, BUN 21 H, Creatinine 0.59, Glucose 86 Assessment and Plan - Problems (Diagnosis) (1) PNA (pneumonia) Current Visit: Yes Status: Acute Plan: Early Right sided PNA on the xray -Pt with Recently PO ABX -Started on IV levaquin at this time -Will monitor for improvement Qualifiers: Pneumonia type: due to unspecified organism Laterality: right Lung location: unspecified part of lung Qualified Code(s): J18.9 - Pneumonia, unspecified organism (2) COPD exacerbation Current Visit: No Status: Acute Plan: COPD exacerbation -Duonebs, Steroids and oxygen. Wean As tolerated (3) HTN (hypertension) Current Visit: Yes Status: Chronic Qualifiers: Hypertension type: essential hypertension Qualified Code(s): I10 - Essential (primary) hypertension (4) Diabetes mellitus type 2 in nonobese Current Visit: No Status: Chronic (5) History of laryngeal cancer Current Visit: No Status: Chronic - Plan Admit for further care Discharge Plan: Home Plan to discharge in: 48 Hours - Advance Directives Does patient have a Living Will: Yes Does patient have a Durable POA for Healthcare: Yes - Code Status/Comfort Care Code Status Assessed: Yes Critical Care: No
[2019-01-20] MEDS ORDERED: INFLUENZA VACCINE (for 3y+) 0.5 ML DOSE IMVAC ONE (21:00)
[2019-01-20 21:03] LABS: Urine Appearance CLEAR; Urine Bilirubin NEGATIVE (NEG); Urine Blood 3+ (NEG); Urine Color YELLOW; Urine Glucose NEGATIVE (NEG); Urine Microscopic Reflex ORDER UMIC; Urine Protein NEGATIVE (NEG); Urine Specific Gravity 1.015 (1.005-1.030)
[2019-01-20 21:17] LABS: Urine Bacteria <20 /HPF (NONE SEEN); Urine RBC 20-50 /HPF (NONE SEEN)
[2019-01-20 21:18] LABS: Urine Culture Reflex Order NOT NEEDED
[2019-01-20] MEDS: GLUCERNA 1.5 CAL 1,000 ML BOT FT SCH (22:47)
[2019-01-20] MEDS ORDERED: TRAMADOL HCL 50 MG TAB PO PRN (23:19)
[2019-01-20] MEDS: QUININE SULFATE PO SCH (23:30)
[2019-01-21] MEDS: ROPINIROLE HCL 0.25 MG TAB PO SCH ×2 (00:56→20:35)
[2019-01-21] MEDS: TEMAZEPAM 15 MG CAP PO PRN (00:57)
[2019-01-21] MEDS: GLUCERNA 1.5 CAL 1,000 ML BOT FT SCH ×7 (00:57→20:42)
[2019-01-21] MEDS: IPRATROPIUM BROM 0.5MG/2.5ML NEB PRN (05:00)
[2019-01-21] MEDS: ALBUTEROL 2.5 MG/3 ML NEB SOL NEB PRN (05:00)
[2019-01-21] MEDS ORDERED: VANCOMYCIN 1 GM in NA CHLORIDE 0.9% 500 ML IVPB SCH ×2 (05:00→23:00)
[2019-01-21 07:22] LABS: Basophils % 0.8 % (0-1.3); Hematocrit 27.5 % (39.6-49.0); Lymphocytes % 13.1 % (15.3-44.8); RBC Red Blood Cell Count 3.43 M/uL (4.33-5.43)
[2019-01-21] MEDS: QUININE SULFATE PO SCH (07:30)
[2019-01-21 07:36] LABS: BUN Blood Urea Nitrogen 22 mg/dL (7-18); Bicarbonate 40 mmol/L (21-32); Glucose Level 139 mg/dL (74-106); NT PRO-BNP 1926 pg/mL (<125); Potassium 4.9 mmol/L (3.5-5.1); Sodium Level 135 mmol/L (136-145)
[2019-01-21] MEDS ORDERED: METFORMIN HCL 500 MG TAB PO SCH (08:00)
[2019-01-21] MEDS ORDERED: ISOSORBIDE MONO 10 MG TAB PO SCH ×2 (08:00→09:00)
[2019-01-21] MEDS ORDERED: FUROSEMIDE 40 MG TABLET PO SCH (09:00)
[2019-01-21] MEDS ORDERED: HYDRALAZINE HCL 25 MG TABLET PO SCH (09:00)
[2019-01-21] MEDS ORDERED: hydroCHLOROthiazide 12.5 MG CAP PO SCH (09:00)
[2019-01-21] MEDS ORDERED: ARFORMOTEROL TARTRATE 15 MCG/2 ML VIAL.NEB IH SCH (09:00)
[2019-01-21] MEDS ORDERED: VALSARTAN 160 MG TAB PO SCH (09:00)
[2019-01-21] MEDS ORDERED: hydroCHLOROthiazide 25 MG TAB PO SCH (09:00)
[2019-01-21] MEDS ORDERED: PANTOPRAZOLE 40MG TABLET PO SCH (09:00)
[2019-01-21] MEDS: ALPRAZOLAM 1 MG TABLET PO SCH ×2 (11:01→20:35)
[2019-01-21] MEDS: METOPROLOL XL 50 MG TAB PO SCH (11:01)
[2019-01-21] MEDS: CLOPIDOGREL 75 MG TABLET PO SCH (11:01)
[2019-01-21] MEDS: ALLOPURINOL 300 MG TAB PO SCH (11:02)
[2019-01-21] MEDS: FENOFIBRATE 160 MG TAB PO SCH (11:02)
[2019-01-21 11:37] LABS: Arterial Blood Carboxyhemoglob 1.4 % (0-1.5); Blood Gas Oxyhemoglobin 93.2 % (94-97)
[2019-01-21] MEDS ORDERED: NA CHLORIDE 0.9% 500 ML IV ONE (12:00)
--- NOTE | 2019-01-21 13:09 | P.PN ---
Subjective Date of Service: 01/21/19 Primary Care Provider: Dr sellers Chief Complaint: SOB Subjective: C/O voiced (Has been Increasing lethargic Last night.), Other ( Sleeping most of the day today as well per family at bedside.) Review of Systems 10-point ROS is otherwise unremarkable Physical Examination - Vital Signs Temperature: 97.2 F Blood Pressure: 101/48 Pulse: 76 Respirations: 21 Pulse Ox (%): 99 - Physical Exam General: In no apparent distress, Other (Lethargic) HEENT: Atraumatic, PERRLA, EOMI Neck: Supple, JVD not distended Respiratory: Normal air movement, Expiratory wheezes, Inspiratory wheezes Cardiovascular: Regular rate/rhythm, Normal S1 S2 Gastrointestinal: Normal bowel sounds, No tenderness Musculoskeletal: No tenderness Integumentary: No rashes Neurological: Normal tone, Normal affect, Abnormal speech Lymphatics: No axilla or inguinal lymphadenopathy - Studies Laboratory Data (last 24 hrs) 01/20/19 14:20: WBC 6.1, Hgb 10.1 L, Hct 31.2 L, Plt Count 270 01/20/19 14:20: Sodium 132 L, Potassium 3.9, BUN 21 H, Creatinine 0.59, Glucose 86 Medications List Reviewed: Yes Assessment And Plan - Current Problems (Diagnosis) (1) Acute respiratory failure Current Visit: No Status: Acute Plan: Hypercapnic Hypoxic respiratory failure Most likely 2.2 to PNA and COPD exacerbation -On BIPAP now. -Will wean as tolerated -Blood and Sputum Culture pending Qualifiers: Respiratory failure complication: hypercapnia Qualified Code(s): J96.02 - Acute respiratory failure with hypercapnia (2) PNA (pneumonia) Current Visit: Yes Status: Acute Plan: Early Right sided PNA on the xray -on IV levaquin at this time -Pulmonology consulted. Appreciated Reccs -Will monitor closely for now Qualifiers: Pneumonia type: due to unspecified organism Laterality: right Lung location: unspecified part of lung Qualified Code(s): J18.9 - Pneumonia, unspecified organism (3) COPD exacerbation Current Visit: No Status: Acute Plan: Acute COPD exacerbation with Hypercapnic Respiratory Failure -Currently on BIPAP will wean as tolerated to NC -Duonebs and Steroids -Pulmonology consulted. appreciated Reccs -Will monitor closely (4) HTN (hypertension) Current Visit: Yes Status: Chronic Qualifiers: Hypertension type: essential hypertension Qualified Code(s): I10 - Essential (primary) hypertension (5) Diabetes mellitus type 2 in nonobese Current Visit: No Status: Chronic (6) History of laryngeal cancer Current Visit: No Status: Chronic - Plan Pending clinical Improvement at this time.
[2019-01-21] MEDS: Levofloxacin500mg IV 500 MG/100 ML BAG IV SCH (16:52)
[2019-01-21] MEDS: ARFORMOTEROL TARTRATE 15 MCG/2 ML VIAL.NEB IH SCH (19:20)
[2019-01-21] MEDS: ATORVASTATIN 10 MG TAB PO SCH (20:35)
[2019-01-21] MEDS ORDERED: ROPINIROLE HCL 1 MG TAB PO SCH (21:00)
[2019-01-21] MEDS ORDERED: PANTOPRAZOLE 40 MG INJ IVP ONE (22:36)
[2019-01-21] MEDS ORDERED: SODIUM CHLORIDE 0.9% 10ML INJ IV PRN ×2 (22:36→22:38)
[2019-01-22] MEDS: GLUCERNA 1.5 CAL 1,000 ML BOT FT SCH ×6 (01:00→20:57)
[2019-01-22] MEDS: ARFORMOTEROL TARTRATE 15 MCG/2 ML VIAL.NEB IH SCH ×2 (08:02→19:40)
[2019-01-22] MEDS: IPRATROPIUM BROM 0.5MG/2.5ML NEB PRN ×2 (08:02→19:40)
[2019-01-22] MEDS: METOPROLOL XL 50 MG TAB PO SCH (11:13)
[2019-01-22] MEDS: PANTOPRAZOLE 40 MG INJ IVP SCH (11:14)
[2019-01-22] MEDS: CLOPIDOGREL 75 MG TABLET PO SCH (11:14)
[2019-01-22] MEDS: ALPRAZOLAM 1 MG TABLET PO SCH ×2 (11:14→20:56)
[2019-01-22] MEDS: FENOFIBRATE 160 MG TAB PO SCH (11:14)
[2019-01-22] MEDS: ALLOPURINOL 300 MG TAB PO SCH (11:16)
[2019-01-22] MEDS: FAMOTIDINE 20 MG TAB FT SCH ×2 (11:21→20:56)
[2019-01-22 12:14] LABS: Arterial Blood Carboxyhemoglob 1.5 % (0-1.5); Blood Gas Oxyhemoglobin 80.9 % (94-97); Blood O2 Saturation 82.4 % (92-98.5)
--- NOTE | 2019-01-22 12:38 | P.PN ---
Subjective Date of Service: 01/22/19 Primary Care Provider: Dr sellers Chief Complaint: SOB Subjective: New changes (Pt has been weaned off BIPAP to CPAP. Still having Desaturing), NPO Review of Systems 10-point ROS is otherwise unremarkable Physical Examination - Vital Signs Temperature: 98.0 F Blood Pressure: 121/59 Pulse: 95 Respirations: 18 Pulse Ox (%): 92 - Physical Exam General: Alert HEENT: Atraumatic, PERRLA, EOMI Neck: Supple, JVD not distended Respiratory: Normal air movement, Expiratory wheezes, Inspiratory wheezes Cardiovascular: Regular rate/rhythm, Normal S1 S2 Gastrointestinal: Normal bowel sounds, No tenderness Musculoskeletal: No tenderness Integumentary: No rashes Neurological: Normal tone, Normal affect, Abnormal speech Lymphatics: No axilla or inguinal lymphadenopathy - Studies Medications List Reviewed: Yes Assessment And Plan - Current Problems (Diagnosis) (1) Acute respiratory failure Current Visit: No Status: Acute Plan: Hypercapnic Hypoxic respiratory failure Most likely 2.2 to PNA and COPD exacerbation -Wean off the BIPAP, On CPAP now. -Will wean as tolerated -Blood and Sputum Culture pending Qualifiers: Respiratory failure complication: hypercapnia Qualified Code(s): J96.02 - Acute respiratory failure with hypercapnia (2) PNA (pneumonia) Current Visit: Yes Status: Acute Plan: Early Right sided PNA on the xray -on IV levaquin at this time -Pulmonology consulted. Appreciated Reccs -Will monitor closely for now Qualifiers: Pneumonia type: due to unspecified organism Laterality: right Lung location: unspecified part of lung Qualified Code(s): J18.9 - Pneumonia, unspecified organism (3) COPD exacerbation Current Visit: No Status: Acute Plan: Acute COPD exacerbation with Hypercapnic Respiratory Failure -Currently on CPAP will wean as tolerated to NC -Duonebs and Steroids -Pulmonology consulted. appreciated Reccs -Will monitor closely (4) HTN (hypertension) Current Visit: Yes Status: Chronic Qualifiers: Hypertension type: essential hypertension Qualified Code(s): I10 - Essential (primary) hypertension (5) Diabetes mellitus type 2 in nonobese Current Visit: No Status: Chronic (6) History of laryngeal cancer Current Visit: No Status: Chronic - Plan Pending clinical Improvement at this time. Will transfer to ICU for closer Monitoring. Discharge Plan: Home Plan to discharge in: Greater than 2 days - Code Status/Comfort Care Code Status Assessed: Yes Critical Care: No
--- NOTE | 2019-01-22 14:05 | RAD REPORT ---
EXAM DESCRIPTION: RAD - Chest Single View - 01/22/2019 1:46 pm CLINICAL HISTORY: Cough, shortness of breath COMPARISON: January 20 TECHNIQUE: AP portable chest image was obtained 1340 hours . FINDINGS: No focal mass or consolidation. Patient has prominent interstitial markings as a baseline. No significant failure or volume overload. Mild edema could be masked. Heart and vasculature are nor mal. No measurable pleural effusion and no pneumothorax. No acute bony abnormality seen. No acute aor tic findings suspected. IMPRESSION: No focal lung parenchymal process and no significant failure or volume overload. Shallow inspiration and chronic interstitial pattern could mask early interstitial edema or infiltrat e
[2019-01-22] MEDS: Levofloxacin500mg IV 500 MG/100 ML BAG IV SCH (16:14)
[2019-01-22] MEDS: ATORVASTATIN 10 MG TAB PO SCH (20:56)
[2019-01-22] MEDS: ROPINIROLE HCL 0.25 MG TAB PO SCH (20:56)
[2019-01-22] MEDS: TEMAZEPAM 15 MG CAP PO PRN (20:56)
[2019-01-23] MEDS: GLUCERNA 1.5 CAL 1,000 ML BOT FT SCH (00:10)
[2019-01-23] MEDS ORDERED: WATER FOR INJ,STERILE 10 ML IM ONE (01:01)
[2019-01-23] MEDS ORDERED: ZIPRASIDONE MESYLA 20 MG/VIAL IM ONE ×2 (01:01→01:02)
[2019-01-23] MEDS ORDERED: WATER FOR INJ,STERILE 10 ML ONE (01:03)
[2019-01-23] MEDS ORDERED: HYDROCORTISONE SUC 100 MG INJ IV ONE (02:19)
[2019-01-23] MEDS ORDERED: ENOXAPARIN 40 MG/0.4 ML SQ ONE (02:33)
[2019-01-23 02:36] LABS: Absolute Lymphocytes (CBC) 1.4 K/uL (0.7-4.9); Basophils % 0.5 % (0-1.3); Hematocrit 30.2 % (39.6-49.0); Lymphocytes % 22.3 % (15.3-44.8); MPV 7.3 fL (7.6-11.3); RBC Red Blood Cell Count 3.74 M/uL (4.33-5.43)
[2019-01-23] MEDS: NA CHLORIDE 0.9% 1,000 ML IV SCH ×2 (02:36→21:38)
[2019-01-23 02:48] LABS: ALT/SGPT 9 U/L (12-78); AST/SGOT 15 U/L (15-37); Albumin 2.2 g/dL (3.4-5.0); Alkaline Phosphatase 84 U/L (45-117); BUN Blood Urea Nitrogen 20 mg/dL (7-18); Bicarbonate 40 mmol/L (21-32); Bilirubin Total 0.3 mg/dL (0.2-1.0); Glucose Level 150 mg/dL (74-106); Magnesium 1.7 mg/dL (1.8-2.4); Potassium 4.2 mmol/L (3.5-5.1); Protein, Total 6.5 g/dL (6.4-8.2); Sodium Level 139 mmol/L (136-145)
[2019-01-23 05:18] LABS: Arterial Blood Carboxyhemoglob 0.9 % (0-1.5); Blood Gas Oxyhemoglobin 98.6 % (94-97); Blood O2 Saturation 99.9 % (92-98.5)
[2019-01-23 05:48] VITALS: BMI 19.8
[2019-01-23] MEDS: IPRATROPIUM BROM 0.5MG/2.5ML NEB PRN (07:15)
[2019-01-23] MEDS: ALBUTEROL 2.5 MG/3 ML NEB SOL NEB PRN (07:15)
[2019-01-23] MEDS: ARFORMOTEROL TARTRATE 15 MCG/2 ML VIAL.NEB IH SCH ×2 (07:18→20:00)
--- NOTE | 2019-01-23 07:23 | P.PN ---
Date of Service: 01/23/19 Was called to see patient because of agitation. Patient had ABGs which revealed hypoxemia. Patient also had a respiratory alkalosis(Patient's normal PCO2 is 80). Patient's ABGs revealed that PCO2 was now in the 40s with resultant respiratory alkalosis with a pH of 7.6. Patient was on the BiPAP. Patient was given Geodon for agitation. Patient did rest much better. This morning ABGs showed that pCO2 is 94. PH is 7.24. We will change BiPAP settings and hopefully repeat ABGs will show that the PCO2 is back to baseline of 80. Spoke with and daughter and they are undecided about code status. Patient has mentioned that she he would not want to be on a machine and with him being so cachectic and deconditioned his prognosis is very poor. There is concern that he has thickening around the epiglottis region. Malignancy may still be a concern. If patient requires intubation may be best done by glide scope. Chest x-ray didn't show significant lung abnormality. Pulmonary consult. Echo pending
[2019-01-23 08:13] LABS: Arterial Blood Carboxyhemoglob 1.2 % (0-1.5); Blood Gas Oxyhemoglobin 71.9 % (94-97); Blood O2 Saturation 73.1 % (92-98.5)
[2019-01-23] MEDS: PANTOPRAZOLE 40 MG INJ IVP SCH (09:00)
[2019-01-23 09:34] LABS: Arterial Blood Carboxyhemoglob 1.1 % (0-1.5); Blood Gas Oxyhemoglobin 97.9 % (94-97); Blood O2 Saturation 99.4 % (92-98.5)
[2019-01-23] MEDS: FAMOTIDINE 20 MG TAB FT SCH ×2 (09:58→21:36)
[2019-01-23] MEDS: CLOPIDOGREL 75 MG TABLET PO SCH (09:58)
[2019-01-23] MEDS: FENOFIBRATE 160 MG TAB PO SCH (09:58)
[2019-01-23] MEDS: ALPRAZOLAM 1 MG TABLET PO SCH ×2 (09:58→21:36)
[2019-01-23] MEDS: METOPROLOL XL 50 MG TAB PO SCH (09:58)
[2019-01-23] MEDS: ALLOPURINOL 300 MG TAB PO SCH (10:06)
--- NOTE | 2019-01-23 10:38 | RAD REPORT ---
EXAM DESCRIPTION: RAD CHEST SINGLE VIEW CLINICAL HISTORY: Chest pain, pneumonia. COMPARISON: 01/22/2019 TECHNIQUE: Frontal portable chest. FINDINGS: Diffuse emphysema is present. The heart is upper limits of normal in size. IMPRESSION: Prominent COPD, unchanged sine 01/22/2019.
--- NOTE | 2019-01-23 10:42 | ECHO ---
HEIGHT: 5 ft 5 in WEIGHT: 119 lb 5 oz DATE OF STUDY: 01/23/[address]: Kiran Alexander MD 2-DIMENSIONAL: YES M.MODE: YES DOPPLER: YES COLOR FLOW: YES TDS: NO PORTABLE: NO DEFINITY: NO BUBBLE STUDY: NO DIAGNOSIS: CONGESTIVE HEART FAILURE CARDIAC HISTORY: CATHERIZATION: SURGERY: PROSTHETIC VALVE: PACEMAKER: MEASUREMENTS (cm) DIASTOLIC (NORMALS) SYSTOLIC (NORMALS) IVSd 1.1 (0.6-1.2) LA Diam (1.9-4.0) LVEF 50-55% LVIDd (3.5-5.7) LVIDs (2.0-3.5) %FS % LVPWd 1.1 (0.6-1.2) Ao Diam (2.0-3.7) 2 DIMENSIONAL ASSESSMENT: RIGHT ATRIUM: NORMAL LEFT ATRIUM: DILATED RIGHT VENTRICLE: NORMAL LEFT VENTRICLE: TRICUSPID VALVE: NORMAL MITRAL VALVE: MITRAL ANNULAR CALCIFICATION PULMONIC VALVE: NORMAL AORTIC VALVE: SCLEROSIS PERICARDIAL EFFUSION: NONE AORTIC ROOT: NORMAL LEFT VENTRICULAR WALL MOTION: DOPPLER/COLOR FLOW: IMPAIRED LEFT VENTRICULAR RELAXATION. COMMENTS: NORMAL LEFT VENTRICULAR EJECTION FRACTION. DILATED LEFT ATRIUM. LEFT VENTRICULAR HYPERTROPHY. MITRAL ANNULAR CALCIFICATION. AORTIC SCLEROSIS WITH NO AORTIC STENOSIS OR AORTIC REGURGITATION. IMPAIRED LEFT VENTRICULAR RELAXATION. TECHNOLOGIST: SABINE MARQUEZ
--- NOTE | 2019-01-23 12:10 | PN ---
Date of Progress Note: 01/23/2019 Subjective: Patient seen and examined, chart reviewed and case discussed with RN and Dr. Lauren. The patient continues to be somewhat confused, but does respond to painful stimuli. Case also discussed with family including daughter , granddaughter and the . They stated that the patient has wished to be do not resuscitate in the past. They want to confer with living will. Medications: List reviewed. Physical Examination: Vital Signs: Temperature 97.7, heart rate 89, blood pressure 85/48, respirations 28, O2 at 96% on BiPAP with 50% FiO2. General: Awake, drowsy, ill-appearing elderly male, frail, cachectic. BMI 19. CV: S1 and S2. Regular rate and rhythm. Peripheral pulses present. Respiratory: Diminished breath sounds, some wheezing heard. No wheezing or stridor. Patient is tachypneic with use of accessory muscles. Gastrointestinal: Abdomen is soft, nontender, nondistended. Positive bowel sounds. Extremities: No clubbing, cyanosis, or edema. Neurologic: Nonfocal. Laboratory Data: ABG: PH 7.41, pCO2 is 62.5, pO2 is 42.4, bicarb 39.2. Repeat ABG shows pH 7.33, pCO2 of 80.9, pO2 of 185, bicarb 41.5. WBC 6.2, H and H 10.4, 30.2, platelets 274. Sodium 139, potassium 4.2, chloride 96, CO2 of 40, BUN 20, creatinine 0.59, glucose 150, calcium 9.1, magnesium 1.7. Blood cultures show no growth to date. Sputum cultures pending. Echocardiogram, EF 50% to 55%, dilated left atrium, left ventricular hypertrophy. Mitral annular calcification, aortic sclerosis with no aortic stenosis. Impaired left ventricular relaxation. Chest x-ray personally reviewed shows prominent COPD, unchanged since previous. Assessment: A 73-year-old male with: 1. Acute respiratory failure, hypercapnic, hypoxic respiratory failure secondary to pneumonia and chronic obstructive pulmonary disease exacerbation. Currently still on BiPAP. ABGs improved, appreciate Pulmonology input. Continue to wean as tolerate. 2. Pneumonia, right-sided. Continue IV antibiotics. Cultures are negative to date. 3. Acute chronic obstructive pulmonary disease exacerbation. Continue with steroids and DuoNebs. The patient is still having significant respiratory symptoms. 4. Essential hypertension. Currently hypotensive. 5. History of laryngeal cancer, chronic. 6. Diabetes mellitus type 2 with hyperglycemia. Code Status: Patient has a living will. Family is obtaining a document verbally. He has stated that he does not wish to be intubated. Family also recalls patient not wanting to be intubated. We will place DNR order once family has signed the DNAR form. Overall poor prognosis. /VICK Voice ID: [id number] Report ID: [id number] MTDD
[2019-01-23 12:28] LABS: Arterial Blood Carboxyhemoglob 1.5 % (0-1.5); Blood Gas Oxyhemoglobin 95.6 % (94-97); Blood O2 Saturation 97.3 % (92-98.5)
--- NOTE | 2019-01-23 12:30 | P.CNS ---
Date of Consult: 01/23/19 Primary Care Provider: Dr sellers Chief Complaint: Respiratory failure altered mental status History of Present Illness: Patient is 73 years of age with a history of chronic respiratory failure admitted with altered mental status. Patient has a history of dysphagia and PEG tube unresponsive on BiPAP apparently he became worse over the past 2 days has been having some chest pain cough is throat is swollen hemodynamically stable on as BiPAP Allergies erythromycin base [Erythromycin Base] Allergy (Verified 01/20/19 21:01) Rash Penicillins Allergy (Verified 01/20/19 21:01) Anaphylaxis Azithromycin Allergy (Uncoded 01/20/19 21:01) Unknown Home Medications: ALPRAZolam [Xanax*] 1 mg PO BID 01/08/19 Allopurinol 300 mg PO DAILY 01/08/19 Arformoterol Tartrate [Brovana] 15 mcg IH BID 01/08/19 Clopidogrel Bisulfate [Plavix] 75 mg PO DAILY 01/08/19 Fenofibrate [Tricor*] 145 mg PO DAILY 01/08/19 Furosemide 40 mg PO DAILY 01/08/19 Hydralazine HCl [Apresoline] 100 mg PO TID 01/08/19 Isosorbide Stanly (Bid) [Ismo 10 mg Tab*] 10 mg PO BID 01/08/19 Metformin HCl 1,000 mg PO BID 01/08/19 Metoprolol Succinate 50 mg PO DAILY 01/08/19 Pantoprazole Sodium [Protonix] 40 mg PO DAILY 01/08/19 Pravastatin Sodium [Pravachol] 40 mg PO BEDTIME 01/08/19 Quinine Sulfate [Qualaquin] 2 cap PO Q8H 01/08/19 Ropinirole HCl [Requip*] 0.5 mg PO BEDTIME 01/08/19 Temazepam 30 mg PO BEDTIME PRN 01/08/19 Tramadol HCl [Ultram] 50 mg PO BID PRN 01/08/19 Valsartan/Hydrochlorothiazide [Diovan Hct 320-25 mg Tablet] 1 each PO DAILY Ropinirole HCl 1 tab PO BEDTIME 01/20/19 hydroCHLOROthiazide [Hydrochlorothiazide] 1 tab PO DAILY 01/20/19 - Past Medical/Surgical History Diabetic: Yes -: restless leg -: CAD -: ME -: PVD -: NIDDM -: high cholesterol -: gout -: copd -: hypertension -: asbestosis -: CHF -: throat cancer? -: Coronary artery bypass grafting -: left elbow surgery -: hernia repair - Family History Mother Medical History: Heart disease, Hypertension, Diabetes, Stroke - Social History Smoking Status: Current every day smoker Alcohol use: No CD- Drugs: No Caffeine use: No Place of Residence: Home Review of Systems is unable to be obtained Physical Examination Temp Pulse Resp BP Pulse Ox 97.7 F 89 25 H 139/67 96 01/23/19 04:00 01/23/19 09:58 01/23/19 09:00 01/23/19 09:58 01/23/19 08:00 General: Unresponsive Neck: Supple Respiratory: Clear to auscultation bilaterally, Diminished Cardiovascular: No edema, Regular rate/rhythm, Normal S1 S2 Gastrointestinal: Normal bowel sounds, Soft and benign, Non-distended Musculoskeletal: No clubbing, No swelling - Problems (1) Respiratory failure Current Visit: Yes Status: Acute Plan: Patient admitted with acute on chronic respiratory failure his oxygenation is not satisfactory day currently on BiPAP will reduce the amount of oxygen chest x -ray shows COPD changes mildly anemic vital signs satisfactory previous echo brown showed possible diastolic dysfunction cultures are so far negative Dc temazepam at Solu-Medrol Qualifiers: Chronicity: acute on chronic
[2019-01-23] MEDS: IPRATROPIUM BROM 0.5MG/2.5ML NEB SCH ×2 (14:11→20:00)
[2019-01-23] MEDS: METHYLPREDNISOLONE 40 MG INJ IV SCH (16:02)
[2019-01-23] MEDS: Levofloxacin500mg IV 500 MG/100 ML BAG IV SCH (16:02)
[2019-01-23] MEDS: ATORVASTATIN 10 MG TAB PO SCH (21:35)
[2019-01-23] MEDS: ROPINIROLE HCL 0.25 MG TAB PO SCH (21:36)
[2019-01-24] MEDS: METHYLPREDNISOLONE 40 MG INJ IV SCH ×3 (00:26→15:54)
[2019-01-24] MEDS: IPRATROPIUM BROM 0.5MG/2.5ML NEB SCH ×4 (02:00→20:00)
[2019-01-24 05:16] LABS: Absolute Lymphocytes (CBC) 0.7 K/uL (0.7-4.9); Basophils % 0.3 % (0-1.3); Hematocrit 27.3 % (39.6-49.0); Lymphocytes % 13.2 % (15.3-44.8); MPV 7.4 fL (7.6-11.3); RBC Red Blood Cell Count 3.32 M/uL (4.33-5.43)
[2019-01-24 05:36] LABS: BUN Blood Urea Nitrogen 27 mg/dL (7-18); Bicarbonate 39 mmol/L (21-32); Glucose Level 138 mg/dL (74-106); Potassium 4.4 mmol/L (3.5-5.1); Sodium Level 141 mmol/L (136-145)
[2019-01-24 05:37] LABS: ALT/SGPT 9 U/L (12-78); AST/SGOT 14 U/L (15-37); Alkaline Phosphatase 70 U/L (45-117); Bilirubin Total 0.2 mg/dL (0.2-1.0); Protein, Total 5.9 g/dL (6.4-8.2)
[2019-01-24] MEDS: ALPRAZOLAM 1 MG TABLET PO SCH ×2 (08:10→22:04)
[2019-01-24] MEDS: ALLOPURINOL 300 MG TAB PO SCH (08:10)
[2019-01-24] MEDS: FAMOTIDINE 20 MG TAB FT SCH ×2 (08:11→22:03)
[2019-01-24] MEDS: METOPROLOL XL 50 MG TAB PO SCH (08:11)
[2019-01-24] MEDS: FENOFIBRATE 160 MG TAB PO SCH (08:11)
[2019-01-24] MEDS: CLOPIDOGREL 75 MG TABLET PO SCH (08:11)
[2019-01-24] MEDS: ARFORMOTEROL TARTRATE 15 MCG/2 ML VIAL.NEB IH SCH ×2 (09:30→20:00)
[2019-01-24] MEDS: Levofloxacin500mg IV 500 MG/100 ML BAG IV SCH (15:00)
[2019-01-24] MEDS: NA CHLORIDE 0.9% 1,000 ML IV SCH (15:55)
[2019-01-24] MEDS: ROPINIROLE HCL 0.25 MG TAB PO SCH (22:02)
[2019-01-24] MEDS: ATORVASTATIN 10 MG TAB PO SCH (22:04)
[2019-01-24] MEDS: GLUCERNA 1.5 CAL 1,000 ML BOT FT SCH (22:05)
[2019-01-24 23:01] VITALS: O2SAT 95
[2019-01-25] MEDS: METHYLPREDNISOLONE 40 MG INJ IV SCH ×2 (01:05→09:03)
[2019-01-25] MEDS: GLUCERNA 1.5 CAL 1,000 ML BOT FT SCH ×3 (01:59→09:25)
[2019-01-25] MEDS: IPRATROPIUM BROM 0.5MG/2.5ML NEB SCH ×2 (02:00→08:00)
[2019-01-25 05:41] LABS: Absolute Lymphocytes (CBC) 0.7 K/uL (0.7-4.9); Basophils % 0.1 % (0-1.3); Lymphocytes % 10.2 % (15.3-44.8); MPV 7.6 fL (7.6-11.3); RBC Red Blood Cell Count 3.59 M/uL (4.33-5.43)
[2019-01-25 06:02] LABS: ALT/SGPT 11 U/L (12-78); AST/SGOT 13 U/L (15-37); Alkaline Phosphatase 84 U/L (45-117); BUN Blood Urea Nitrogen 29 mg/dL (7-18); Bicarbonate 37 mmol/L (21-32); Bilirubin Total 0.2 mg/dL (0.2-1.0); Glucose Level 168 mg/dL (74-106); Potassium 4.6 mmol/L (3.5-5.1); Protein, Total 6.1 g/dL (6.4-8.2); Sodium Level 141 mmol/L (136-145)
--- NOTE | 2019-01-25 06:21 | DS ---
Date of Discharge: 01/24/2019 Consultants: Dr. Lauren with Pulmonology. Admitting Diagnoses: 1.Pneumonia, right-sided. 2.Chronic obstructive pulmonary disease exacerbation, acute. 3.Essential hypertension. 4.Diabetes mellitus type 2 with hyperglycemia. 5.History of laryngeal cancer. Discharge Diagnoses: 1.Acute respiratory failure, hypercapnic, hypoxic, secondary to pneumonia and chronic obstructive pu lmonary disease, improving. 2.Pneumonia, right-sided. 3.Acute chronic obstructive pulmonary disease exacerbation. 4.Essential hypertension. 5.History of laryngeal cancer. 6.Diabetes mellitus type 2 with hyperglycemia. 7.Severe protein-calorie malnutrition. Hospital Course: Patient is a 73-year-old male with past medical history of coronary artery disease, peripheral vascular disease, history of DE, diabetes, hyperlipidemia, gout, COPD, hypertension, manjit estive heart failure, comes in with shortness of breath. Patient had severe respiratory failure with hypoxia and hypercapnia. Patient had to be placed on BiPAP. Patient did not wish to be resuscitate d and therefore he declined mechanical ventilation. Patient was also seen by production reproduction manager. Patient was started on IV antibiotics for pneumonia as well as steroids for the COPD along with breathing tr eatments. Patient's blood cultures did not show any growth. Sputum cultures also did not show any g rowth. Patient's repeat chest x-ray showed prominent COPD. Echocardiogram showed normal ejection fr action 50% to 55%, did show left ventricular hypertrophy. Patient was able to be weaned off BiPAP, b ut did use it for comfort. He then requested comfort measures and hospice care as his laryngeal canc er has not been completely treated according to the patient. He understands that choosing hospice me ans that there will be a shift in treatment in terms of switching from active treatment and curing di sease including invasive measures to care and comfort measures, which emphasize quality of life rathe r than quantity of life. Family was also involved in the decision making. They agreed with this kathy schrader. He is DNR. [facility] was providing his home health currently, were consulted for providing hospice services. Patient will be discharged home once hospice services are initiate. Overall has poor pro gnosis due to his multiple comorbid conditions, respiratory failure, severe protein-calorie malnutrit ion, and history of laryngeal cancer. Physical Examination: General: Awake, alert, and oriented x3. Elderly male, frail, cachectic, ill appearing. CV: S1, S2. Respiratory: Diminished breath sounds. No wheezing. Gastrointestinal: Abdomen is soft, nontender, nondistended. Positive bowel sounds. PEG tube in jefry ce. Extremities: No clubbing, cyanosis, edema. Neurologic: Nonfocal. Time Spent: Total time spent discharging the patient was 41 minutes. /VICK Voice ID: [id number] Report ID: [id number]
[2019-01-25] MEDS: ARFORMOTEROL TARTRATE 15 MCG/2 ML VIAL.NEB IH SCH (08:00)
[2019-01-25] MEDS: FENOFIBRATE 160 MG TAB PO SCH (09:03)
[2019-01-25] MEDS: FAMOTIDINE 20 MG TAB FT SCH (09:03)
[2019-01-25] MEDS: CLOPIDOGREL 75 MG TABLET PO SCH (09:03)
[2019-01-25] MEDS: METOPROLOL XL 50 MG TAB PO SCH (09:03)
[2019-01-25] MEDS: ALPRAZOLAM 1 MG TABLET PO SCH (09:03)
[2019-01-25] MEDS: ALLOPURINOL 300 MG TAB PO SCH (09:04)
[2019-01-25 11:24] LABS: Anisocytosis 1+; Blood Morphology Comment NOTED (NOT SEEN); Platelet Estimate ADEQ; Stomatocytes 1+; Urine White Blood Cell Casts OK
[2019-01-25 12:54] VITALS: BP 138/62; TEMP 97.8
--- NOTE | 2019-01-25 16:18 | PN ---
Date of Progress Note: 01/25/2019 Subjective: Patient seen and examined. Chart reviewed and case discussed with RN and Dr. Lauren. Patient awaiting equipment delivery for hospice at home. Home Medications: List reviewed. Physical Examination: Vital Signs: Temperature 97.6, heart rate 87, blood pressure 137/65, respirations 18, O2 93% on 2 L via nasal cannula. General: Awake, alert, oriented, in some mild distress, ill-appearing elderly male. CV: S1, S2. Respiratory: Diminished breath sounds. Gastrointestinal: Abdomen is soft, nontender, nondistended. Positive bowel sounds. Extremities: No clubbing, cyanosis, or edema. Neurologic: Nonfocal. Laboratory Data: WBC 7.2, H and H 9.9 and 29, platelets 284. Sodium 141, potassium 4.6, chloride 10 1, CO2 of 37, BUN 29, creatinine 0.72, glucose 168, calcium 8.2. Assessment: A 73-year-old male with: 1.Acute respiratory failure hypercapnic hypoxic secondary to pneumonia and chronic obstructive pulmo nary disease, improving. 2.Pneumonia, right sided, improved. 3.Jgnzl-kt-geooute chronic obstructive pulmonary disease exacerbation. 4.Essential hypertension. 5.History of laryngeal cancer. 6.Diabetes mellitus type 2 with hyperglycemia. 7.Severe protein-calorie malnutrition. Plan: Discharge home with hospice once equipment is delivered. /VICK Voice ID: [id number] Report ID: [id number]
== END 2019-01-25 13:46 | disposition hospice, home (50) | DRG 193 ==
LOC: ER 14:12 → ERHOLD 16:26 → 4TH 17:17 → 3RD-ICU 01-22 13:10 → 4TH 01-24 09:15
PROVIDERS: ADMIT Family Medicine; ATTEND Family Medicine
PROC: 5A09357 Assistance with Respiratory Ventilation, Less than 24 Consecutive Hours, Continuous Positive Airway Pressure (ICD-10-PCS; principal; 2019-01-20)
DX: J18.9 Pneumonia, unspecified organism (principal); E43 Unspecified severe protein-calorie malnutrition; J96.21 Acute and chronic respiratory failure with hypoxia; J96.22 Acute and chronic respiratory failure with hypercapnia; J44.0 Chronic obstructive pulmonary disease with (acute) lower respiratory infection; E87.3 Alkalosis; Z68.1 Body mass index [BMI] 19.9 or less, adult; J44.1 Chronic obstructive pulmonary disease with (acute) exacerbation; I10 Essential (primary) hypertension; E11.65 Type 2 diabetes mellitus with hyperglycemia; Z85.21 Personal history of malignant neoplasm of larynx; I25.10 Atherosclerotic heart disease of native coronary artery without angina pectoris; I73.9 Peripheral vascular disease, unspecified; I25.2 Old myocardial infarction; Z66 Do not resuscitate; Z88.0 Allergy status to penicillin
CPT/HCPCS: 36415; 71045; 80048; 80053; 81003; 81015; 82805; 82962; 83735; 83880; 84484; 85025; 87040; 87070; 87205; 93005; 93306; 94640; 94660; 94760; 94761; 96365; 96368; 96375; 99285; C9113; J1650; J1720; J2920; J2930; J3370; J3486; J7030; J7605

== ENCOUNTER 2019-01-27 17:56 | Emergency (ER) | payer OTHER ==
[2019-01-27 18:26] LABS: Arterial Blood Carboxyhemoglob 1.3 % (0-1.5); Blood Gas Oxyhemoglobin 84.5 % (94-97); Blood O2 Saturation 86.1 % (92-98.5)
[2019-01-27] MEDS ORDERED: dexAMETHasone 10 MG/ML VIAL ONE (19:12)
[2019-01-27] MEDS ORDERED: IPRATROPIUM BROM 0.5MG/2.5ML ONE ×2 (19:12→19:35)
[2019-01-27] MEDS ORDERED: METHYLPREDNISOLONE 125 MG INJ ONE (19:12)
[2019-01-27 19:13] LABS: Absolute Lymphocytes (CBC) 0.9 K/uL (0.7-4.9); Basophils % 0.2 % (0-1.3); Hematocrit 29.3 % (39.6-49.0); Lymphocytes % 6.9 % (15.3-44.8); MPV 7.6 fL (7.6-11.3); Protime INR 1.37; RBC Red Blood Cell Count 3.66 M/uL (4.33-5.43)
[2019-01-27] MEDS ORDERED: Levofloxacin500mg IV 500 MG/100 ML BAG IV ONE (19:13)
[2019-01-27] MEDS ORDERED: LEVALBUTEROL 1.25 MG/3 ML NEB ONE ×2 (19:13→19:35)
[2019-01-27] MEDS ORDERED: NA CHLORIDE 0.9% 1,000 ML ONE (19:13)
[2019-01-27] MEDS ORDERED: CEFEPIME 1 GM/100 ML BAG IV ONE (19:14)
[2019-01-27] MEDS ORDERED: FAMOTIDINE 20 MG/2 ML VIAL IV ONE (19:14)
[2019-01-27 19:33] LABS: ALT/SGPT 12 U/L (12-78); AST/SGOT 12 U/L (15-37); Albumin 2.2 g/dL (3.4-5.0); Alkaline Phosphatase 74 U/L (45-117); BUN Blood Urea Nitrogen 22 mg/dL (7-18); Bicarbonate 35 mmol/L (21-32); Bilirubin Direct 0.2 mg/dL (0-0.2); Bilirubin Total 0.3 mg/dL (0.2-1.0); Glucose Level 116 mg/dL (74-106); Lipase 55 U/L (73-393); Magnesium 1.8 mg/dL (1.8-2.4); NT PRO-BNP 3978 pg/mL (<125); Potassium 4.2 mmol/L (3.5-5.1); Protein, Total 6.4 g/dL (6.4-8.2); Sodium Level 138 mmol/L (136-145); Troponin (Emerg Dept Use Only) 0.27 ng/mL (0.0-0.045)
[2019-01-27 19:42] LABS: Blood Morphology Comment NOT SEEN (NOT SEEN); Platelet Estimate ADEQ; Urine White Blood Cell Casts OK
[2019-01-27] MEDS ORDERED: ASPIRIN 81 MG CHEWABLE TABLET ONE ×2 (20:12→20:27)
--- NOTE | 2019-01-27 20:58 | EDPHYS ---
Physician Documentation [facility] Name: Richie Paulino Age: 73 yrs Sex: Male : 1945 Arrival Date: 01/27/2019 Time: 18:03 Bed 4 Private MD: ED Physician Juni Zelaya HPI: 01/27 18:05 This 73 yrs old Male presents to ER via Unassigned with complaints of chest chidi pain and sob. 18:05 The patient or guardian reports chest pain that is located primarily in the substernal chidi area. Onset: 3 day(s) ago. The pain does not radiate. Associated signs and symptoms: Pertinent positives: cough, dizziness, shortness of breath. The chest pain is described as burning. Modifying factors: The symptoms are alleviated by application of supplemental oxygen, remaining still, rest, the symptoms are aggravated by cough, deep breath, movement, walking. Severity of pain: At its worst the pain was mild in the emergency department the pain is unchanged. 18:12 Duration: The patient or guardian reports multiple episodes, that wax and wane. The chidi patient has experienced similar episodes in the past, multiple times. Historical: - Allergies: 18:19 Amoxicillin; jl7 18:19 Codeine; jl7 18:19 PENICILLINS; jl7 - Home Meds: 18:19 Aspirin Oral [Active]; biotin Oral [Active]; clopidogrel 75 mg Oral tab 1 tab once jl7 daily [Active]; fenofibrate Oral [Active]; Fish Oil Oral [Active]; Folic Acid Oral [Active]; Furosemide Oral [Active]; Hydralazine Oral [Active]; Isosorbide Mononitrate Oral [Active]; Metformin Oral [Active]; metoprolol succinate 50 mg Oral Tb24 [Active]; nitroglycerin 0.4 mg SL subl [Active]; pantoprazole Oral [Active]; pravastatin Oral [Active]; senosides [Active]; Tramadol Oral [Active]; - PMHx: 18:19 CAD; Cancer; throat; CHF; COPD; Diabetes - NIDDM; Hypertension; jl7 - Immunization history:: Adult Immunizations unknown. - Social history:: Smoking status: Patient/guardian denies using tobacco. - Family history:: not pertinent. - Ebola Screening: : No symptoms or risks identified at this time. ROS: 18:05 Constitutional: Negative for fever, chills, and weight loss, Eyes: Negative for injury, chidi pain, redness, and discharge, ENT: Negative for injury, pain, and discharge, Neck: Negative for injury, pain, and swelling, Abdomen/GI: Negative for abdominal pain, nausea, vomiting, diarrhea, and constipation, Back: Negative for injury and pain, : Negative for injury, bleeding, discharge, and swelling, Skin: Negative for injury, rash, and discoloration, Neuro: Negative for headache, weakness, numbness, tingling, and seizure, Psych: Negative for depression, anxiety, suicide ideation, homicidal ideation, and hallucinations, Allergy/Immunology: Negative for hives, rash, and allergies, Endocrine: Negative for neck swelling, polydipsia, polyuria, polyphagia, and marked weight changes, Hematologic/Lymphatic: Negative for swollen nodes, abnormal bleeding, and unusual bruising. 18:05 Cardiovascular: Positive for chest pain. 18:05 Respiratory: Positive for cough, dyspnea on exertion, shortness of breath, wheezing, expiratory. 18:05 MS/extremity: Positive for swelling, of the right leg and left leg. Exam: 18:05 Constitutional: This is a well developed, well nourished patient who is awake, alert, chidi and in no acute distress. Head/Face: Normocephalic, atraumatic. Eyes: Pupils equal round and reactive to light, extra-ocular motions intact. Lids and lashes normal. Conjunctiva and sclera are non-icteric and not injected. Cornea within normal limits. Periorbital areas with no swelling, redness, or edema. ENT: Nares patent. No nasal discharge, no septal abnormalities noted. Tympanic membranes are normal and external auditory canals are clear. Oropharynx with no redness, swelling, or masses, exudates, or evidence of obstruction, uvula midline. Mucous membranes moist. Neck: Trachea midline, no thyromegaly or masses palpated, and no cervical lymphadenopathy. Supple, full range of motion without nuchal rigidity, or vertebral point tenderness. No Meningismus. Chest/axilla: Normal chest wall appearance and motion. Nontender with no deformity. No lesions are appreciated. Abdomen/GI: Soft, non-tender, with normal bowel sounds. No distension or tympany. No guarding or rebound. No evidence of tenderness throughout. Back: No spinal tenderness. No costovertebral tenderness. Full range of motion. Skin: Warm, dry with normal turgor. Normal color with no rashes, no lesions, and no evidence of cellulitis. Neuro: Awake and alert, GCS 15, oriented to person, place, time, and situation. Cranial nerves II-XII grossly intact. Motor strength 5/5 in all extremities. Sensory grossly intact. Cerebellar exam normal. Normal gait. Psych: Awake, alert, with orientation to person, place and time. Behavior, mood, and affect are within normal limits. 18:05 Cardiovascular: Rate: tachycardic, Rhythm: regular, Pulses: Pulses are 4+ in bilateral radial, brachial, femoral, popliteal, posterior tibial and and dorsalis pedis arteries.. Heart sounds: normal, JVD: is not appreciated. Vital Signs: 17:56 BP 134 / 60; Pulse 102; Resp 24 S; Temp 98.3(O); Pulse Ox 79% on R/A; jl7 18:21 BP 111 / 60; Pulse 99; Resp 14; Pulse Ox 96% on 50% BiPAP; jl7 20:06 BP 129 / 80; Pulse 89; Resp 26 S; Pulse Ox 100% on 60% BiPAP; bb 21:12 BP 109 / 53; Pulse 90; Resp 22 S; Pulse Ox 100% on 60% BiPAP; bb 22:03 BP 128 / 66; Pulse 97; Resp 22 S; Temp 97.6(A); Pulse Ox 100% on 60% BiPAP; bb 23:13 BP 119 / 64; Pulse 97; Resp 30 S; Pulse Ox 96% on 60% BiPAP; bb MDM: 18:04 Patient medically screened. [facility] 18:08 Data reviewed: vital signs, nurses notes, lab test result(s), EKG, radiologic studies, chidi plain films. 20:54 ED course: I discussed the patient with Dr. Snider cardiology along with Dr. Kaylah miller whom accepted transfer. . 01/27 18:12 Order name: Basic Metabolic Panel [facility] 01/27 18:12 Order name: CBC with Diff [facility] 01/27 18:12 Order name: LFT's [facility] 01/27 18:12 Order name: Magnesium [facility] 01/27 18:12 Order name: NT PRO-BNP; Complete Time: 19:33 [facility] 01/27 18:12 Order name: PT-INR; Complete Time: 19:33 [facility] 01/27 18:12 Order name: Troponin (emerg Dept Use Only); Complete Time: 19:33 [facility] 01/27 18:12 Order name: Blood Culture Adult (2) [facility] 01/27 18:12 Order name: Lipase; Complete Time: 19:33 [facility] 01/27 18:12 Order name: Procalcitonin; Complete Time: 20:11 [facility] 01/27 18:12 Order name: Lactate; Complete Time: 19:33 [facility] 01/27 18:13 Order name: Basic Metabolic Panel; Complete Time: 19:33 [facility] 01/27 18:13 Order name: CBC with Automated Diff; Complete Time: 19:56 [facility] 01/27 18:12 Order name: XRAY Chest (1 view); Complete Time: 21:27 [facility] 01/27 18:13 Order name: Liver (Hepatic) Function; Complete Time: 19:33 [facility] 01/27 18:13 Order name: Magnesium; Complete Time: 19:33 [facility] 01/27 18:15 Order name: ABG; Complete Time: 18:53 [facility] 01/27 18:15 Order name: BIPAP [facility] 01/27 19:42 Order name: CBC Smear Scan; Complete Time: 19:56 [facility] 01/27 18:12 Order name: EKG; Complete Time: 18:14 [facility] 01/27 18:12 Order name: Cardiac monitoring; Complete Time: 19:00 [facility] 01/27 18:12 Order name: EKG - Nurse/Tech; Complete Time: 19:00 [facility] 01/27 18:12 Order name: IV Saline Lock; Complete Time: 19:01 [facility] 01/27 18:12 Order name: Labs collected and sent; Complete Time: 19:01 [facility] 01/27 18:12 Order name: O2 Per Protocol; Complete Time: 19:00 [facility] 01/27 18:12 Order name: O2 Sat Monitoring; Complete Time: 19:00 [facility] Administered Medications: 19:18 Drug: Xopenex 3.75 mg Route: Inhalation; bb 19:18 Drug: AtroVENT Aerosol 0.5 mg Route: Inhalation; bb 19:20 Drug: SOLU-Medrol 125 mg Route: IVP; Site: left wrist; bb 23:14 Follow up: Response: No adverse reaction bb 19:20 Drug: NS 0.9% 1000 ml Route: IV; Rate: 75 ml/hr; Site: left wrist; bb 23:13 Follow up: IV Status: Infusion continued upon transfer bb 19:21 Drug: Decadron - Dexamethasone 10 mg Route: IVP; Site: left wrist; bb 23:14 Follow up: Response: No adverse reaction bb 19:22 Drug: Pepcid 20 mg Route: IVP; Site: left wrist; bb 23:14 Follow up: Response: No adverse reaction bb 19:46 Drug: Cefepime 1 grams Route: IVPB; Rate: 200 ml/hr; Infused Over: 30 mins; Site: left bb wrist; 20:31 Follow up: IV Status: Completed infusion; IV Intake: 100ml bb 20:30 Drug: Aspirin Chewable Tablet 324 mg Route: PO; bb 23:13 Follow up: Response: No adverse reaction bb 20:31 Drug: levofloxacin 500 mg Volume: 100 ml; Route: IVPB; Infused Over: 60 mins; Site: bb left wrist; 23:14 Follow up: IV Status: Completed infusion; IV Intake: 100ml bb 23:42 Drug: Ativan 1 mg Route: IVP; Site: left forearm; ea 23:42 Follow up: Response: medication administered upon transfer ea Disposition: 01/27/19 20:57 Transfer ordered to [facility]. Diagnosis are Non-ST elevation (NSTEMI) myocardial infarction, Acute on chronic combined systolic (congestive) and diastolic (congestive) heart failure, Pneumonia. - Reason for transfer: Higher level of care. - Accepting physician is Kaylah. - Condition is Stable. - Problem is new. - Symptoms have improved. Addendum: 01/29/2019 07:56 Co-signature as Attending Physician, Juni Zelaya MD I agree with the assessment and c grant plan of care. Signatures: Dispatcher [employer] Juni Marin MD MD cha Mickail, Joel, PA PA jmm Ballard, Brenda, RN RN bb Leal, Jahala, RN RN jlPorsche Arboleda RN RN ea Corrections: (The following items were deleted from the chart) 01/27 23:55 20:57 01/27/2019 20:57 Transfer ordered to [facility]. Diagnosis is bb Non-ST elevation (NSTEMI) myocardial infarction; Acute on chronic combined systolic (congestive) and diastolic (congestive) heart failure; Pneumonia. Reason for transfer: Higher level of care. Accepting physician is Kaylah. Condition is Stable. Problem is new. Symptoms have improved. angela
--- NOTE | 2019-01-27 20:58 | ER ---
Nurse's Notes [facility] Name: Richie Paulino Age: 73 yrs Sex: Male : 1945 Arrival Date: 01/27/2019 Time: 18:03 Bed 4 Private MD: Diagnosis: Non-ST elevation (NSTEMI) myocardial infarction;Acute on chronic combined systolic (congestive) and diastolic (congestive) heart failure;Pneumonia Presentation: 01/27 18:09 Presenting complaint: EMS states: Shortness of breath and chest pain started about jl7 1700, gave 324 Aspirin and Nitro x 2, O2 84% up to 96% on Non-rebreather. Transition of care: patient was not received from another setting of care. Onset of symptoms was January 27, 2019. Risk Assessment: Do you want to hurt yourself or someone else? Patient reports no desire to harm self or others. Initial Sepsis Screen: Does the patient meet any 2 criteria? RR > 20 per min. No. Patient's initial sepsis screen is negative. Does the patient have a suspected source of infection? Yes: Productive cough/pneumonia. Care prior to arrival: IV initiated. 20 GA, in the left forearm, Oxygen administered. via a non-rebreather mask. 18:09 Method Of Arrival: EMS: [facility] jl7 18:09 Acuity: RICHARD 2 jl7 Triage Assessment: 18:00 General: Appears distressed, uncomfortable, ill, Behavior is cooperative, agitated. jl7 Pain: Denies pain. EENT: No signs and/or symptoms were reported regarding the EENT system. Neuro: Level of Consciousness is awake, alert, obeys commands, Oriented to person, place, time, situation. Cardiovascular: Heart tones present Patient's skin is warm and dry. Rhythm is sinus tachycardia. Respiratory: Reports shortness of breath at rest Airway is patent Respiratory effort is even, labored, Respiratory pattern is symmetrical, tachypnea Sputum is thick, pate in color Congestion auscultated through long centeno Onset: The symptoms/episode began/occurred the patient has severe shortness of breath. GI: No signs and/or symptoms were reported involving the gastrointestinal system. : No signs and/or symptoms were reported regarding the genitourinary system. Derm: Skin is pink, warm \T\ dry. Musculoskeletal: No signs and/or symptoms reported regarding the musculoskeletal system. Historical: - Allergies: 18:19 Amoxicillin; jl7 18:19 Codeine; jl7 18:19 PENICILLINS; jl7 - Home Meds: 18:19 Aspirin Oral [Active]; biotin Oral [Active]; clopidogrel 75 mg Oral tab 1 tab once jl7 daily [Active]; fenofibrate Oral [Active]; Fish Oil Oral [Active]; Folic Acid Oral [Active]; Furosemide Oral [Active]; Hydralazine Oral [Active]; Isosorbide Mononitrate Oral [Active]; Metformin Oral [Active]; metoprolol succinate 50 mg Oral Tb24 [Active]; nitroglycerin 0.4 mg SL subl [Active]; pantoprazole Oral [Active]; pravastatin Oral [Active]; senosides [Active]; Tramadol Oral [Active]; - PMHx: 18:19 CAD; Cancer; throat; CHF; COPD; Diabetes - NIDDM; Hypertension; jl7 - Immunization history:: Adult Immunizations unknown. - Social history:: Smoking status: Patient/guardian denies using tobacco. - Family history:: not pertinent. - Ebola Screening: : No symptoms or risks identified at this time. Screenin:06 Abuse screen: Denies threats or abuse. Nutritional screening: No deficits noted. bb Tuberculosis screening: No symptoms or risk factors identified. Fall Risk None identified. Assessment: 18:00 General: See triage assessment. jl7 18:10 Reassessment: RT at bedside, pt placed on BiPap 14/7 and 50%. jl7 19:20 General: Appears uncomfortable, slender, unkempt, Behavior is cooperative. Neuro: Level bb of Consciousness is awake, alert, obeys commands, Oriented to person, place, situation. Cardiovascular: Heart tones S1 S2 present Capillary refill < 3 seconds Patient's skin is warm and dry. Edema is 2+ to left ankle, left foot, right ankle and right foot pitting to left ankle, left foot, right ankle and right foot. Respiratory: Airway is patent Respiratory effort is unlabored, Respiratory pattern is regular, symmetrical, Breath sounds are diminished bilaterally. GI: No signs and/or symptoms were reported involving the gastrointestinal system. Derm: Skin is pink, warm \T\ dry. Musculoskeletal: Circulation, motion, and sensation intact. Swelling present in left leg and right leg. 20:08 Reassessment: pt resting quietly awake and alert, Bipap in place, IV sites intact bb patent with fluids infusing. 21:11 Reassessment: Pola NICHOLE discussed findings and recommendations pt to be bb transferred to [facility] for higher level of care pt verbalized understanding of and agrees to plan of care. 22:02 Reassessment: pt resting quietly, Bipap in place, IV site intact, patent with fluids bb infusing awaiting transfer to [facility] for higher level of care. 22:17 Reassessment: report given to Navi PAYAN at [facility] for ICU. bb 23:09 Reassessment: EMS at bedside for transfer of pt. Pt appeared to be sleeping but bb aroused easily, resp tachypneic, IV site intact, patent with fluids infusing. Vital Signs: 17:56 BP 134 / 60; Pulse 102; Resp 24 S; Temp 98.3(O); Pulse Ox 79% on R/A; jl7 18:21 BP 111 / 60; Pulse 99; Resp 14; Pulse Ox 96% on 50% BiPAP; jl7 20:06 BP 129 / 80; Pulse 89; Resp 26 S; Pulse Ox 100% on 60% BiPAP; bb 21:12 BP 109 / 53; Pulse 90; Resp 22 S; Pulse Ox 100% on 60% BiPAP; bb 22:03 BP 128 / 66; Pulse 97; Resp 22 S; Temp 97.6(A); Pulse Ox 100% on 60% BiPAP; bb 23:13 BP 119 / 64; Pulse 97; Resp 30 S; Pulse Ox 96% on 60% BiPAP; bb ED Course: 18:03 Patient arrived in ED. chidi 18:03 Juni Zelaya MD is Attending Physician. chidi 18:08 Jesse Frias, ORA is Primary Nurse. jl7 18:14 Triage completed. jl7 18:16 [facility] m 18:21 Arm band placed on right wrist. jl7 18:24 EKG done, by ED staff, reviewed by Pola NICHOLE. dh3 18:35 XRAY Chest (1 view) In Process Unspecified. EDMS 19:20 Patient has correct armband on for positive identification. Bed in low position. Call bb light in reach. Side rails up X2. 19:42 Inserted saline lock: 22 gauge in right antecubital area, using aseptic technique. bb Blood collected. 19:45 Second set of blood cultures drawn by me. bb 20:06 post secondary professional on. Pulse ox on. NIBP on. Warm blanket given. Pillow given. bb 21:13 No provider procedures requiring assistance completed. Patient transferred, IV remains bb in place. Administered Medications: 19:18 Drug: Xopenex 3.75 mg Route: Inhalation; bb 19:18 Drug: AtroVENT Aerosol 0.5 mg Route: Inhalation; bb 19:20 Drug: SOLU-Medrol 125 mg Route: IVP; Site: left wrist; bb 23:14 Follow up: Response: No adverse reaction bb 19:20 Drug: NS 0.9% 1000 ml Route: IV; Rate: 75 ml/hr; Site: left wrist; bb 23:13 Follow up: IV Status: Infusion continued upon transfer bb 19:21 Drug: Decadron - Dexamethasone 10 mg Route: IVP; Site: left wrist; bb 23:14 Follow up: Response: No adverse reaction bb 19:22 Drug: Pepcid 20 mg Route: IVP; Site: left wrist; bb 23:14 Follow up: Response: No adverse reaction bb 19:46 Drug: Cefepime 1 grams Route: IVPB; Rate: 200 ml/hr; Infused Over: 30 mins; Site: left bb wrist; 20:31 Follow up: IV Status: Completed infusion; IV Intake: 100ml bb 20:30 Drug: Aspirin Chewable Tablet 324 mg Route: PO; bb 23:13 Follow up: Response: No adverse reaction bb 20:31 Drug: levofloxacin 500 mg Volume: 100 ml; Route: IVPB; Infused Over: 60 mins; Site: bb left wrist; 23:14 Follow up: IV Status: Completed infusion; IV Intake: 100ml bb 23:42 Drug: Ativan 1 mg Route: IVP; Site: left forearm; ea 23:42 Follow up: Response: medication administered upon transfer ea Intake: 20:31 IV: 100ml; Total: 100ml. bb 23:14 IV: 100ml; Total: 200ml. bb Outcome: 20:57 ER care complete, transfer ordered by . angela 21:13 Instructed on the need for transfer. bb 23:55 Transferred by ground EMS to [facility], Transfer form completed. bb X-rays sent w/ patient. 23:55 Condition: stable 23:55 Patient left the ED. bb Signatures: Dispatcher [employer] EDJuni Quach MD MD cha Mickail, Joel, PA PA jmm Ballard, Brenda, RN RN Jesse Still RN RN jl7 Sara Sommer [facility] Porsche Hein RN RN ea Corrections: (The following items were deleted from the chart) 18:26 18:00 Respiratory: Reports shortness of breath at rest Airway is patent Respiratory jl7 effort is even, labored, Respiratory pattern is symmetrical, tachypnea Sputum is thick, pate in color Onset: The symptoms/episode began/occurred the patient has severe shortness of breath jl7
--- NOTE | 2019-01-27 21:20 | RAD REPORT ---
EXAM DESCRIPTION: Babak Single View01/27/2019 7:21 pm CLINICAL HISTORY: Cough COMPARISON: 01/23/2019 FINDINGS: Mild right basilar lung opacities Additional bilateral pulmonary opacities appear chronic The heart is normal size IMPRESSION: Mild right basilar opacities likely mild pneumonia
[2019-01-27] MEDS ORDERED: LORazepam 2 MG/ML VIAL ONE (23:39)
[2019-01-28 02:10] VITALS: O2SAT 100
[2019-01-28 02:13] VITALS: BP 128/66; TEMP 97.6
--- NOTE | 2019-01-28 04:38 | EKG ---
Test Date: 2019-01-27 Test Time: 18:24:07 Process Maintenance Technician: LISANDRA MEASUREMENT RESULTS: Intervals: Rate: 104 SC: 120 QRSD: 90 QT: 398 QTc: 523 [place]: P: 85 SC: 120 QRS: 66 T: 83 INTERPRETIVE STATEMENTS: Sinus tachycardia prolonged QT Abnormal ECG Compared to ECG 01/20/2019 14:25:04 Prolonged QT interval now present Sinus rhythm no longer present ST (T wave) deviation no longer present Electronically Signed On 01-28-19 04:37:50 CDT by Gabriel Sawyer
== END 2019-01-27 23:55 | disposition short-term general hospital (02) ==
LOC: ER 17:56
DX: I21.4 Non-ST elevation (NSTEMI) myocardial infarction (principal); I50.43 Acute on chronic combined systolic (congestive) and diastolic (congestive) heart failure; J18.9 Pneumonia, unspecified organism; I10 Essential (primary) hypertension; E11.9 Type 2 diabetes mellitus without complications; J44.9 Chronic obstructive pulmonary disease, unspecified; Z85.12 Personal history of malignant neoplasm of trachea; Z88.0 Allergy status to penicillin; Z88.1 Allergy status to other antibiotic agents; Z88.5 Allergy status to narcotic agent; Z79.82 Long term (current) use of aspirin
CPT/HCPCS: 96365; 96367; 93005; 87040 ×2; 85025; 80048; 36415; 83735; 85610; 80076; 83605; 84484; 83690; 84145; 83880; 71045; 82805; 94660; 96375; 99285; 96366; J1100; J0692; J7030; J2930